=== PATIENT | male | born 1945 | race Caucasian/White ===

== ENCOUNTER → 2016-09-18 | Outpatient (CLI) | payer MEDICARE, BC ==
--- NOTE | 2016-09-18 07:16 | MR ---
EXAMINATION TYPE: MR pelvis wo con DATE OF EXAM: 09/18/2016 6:56 AM COMPARISON: CT pelvis July 24, 2016 HISTORY: Right groin pain and tenderness. Standard multiplanar, multisequence MRI departmental protocol Multiplanar, multisequence images of the pelvis were acquired. FINDINGS: Bone marrow signal intensity is maintained in the visualized pelvis structures. Hip joints are symmetric with mild to moderate axial joint space loss and mild acetabular spurring. Pubic symphy sis is maintained. Sacroiliac joints are felt within normal limits. There is no suspicious fat or bowel containing inguinal hernia bilaterally. Some benign-appearing sub centimeter groin lymph nodes are noted bilaterally. There is no suspicious groin or pelvic adenopathy seen. Muscle bulk in the bilateral thighs is symmetric and felt within normal limits. There is no suspiciou s mass or fluid collection noted. There is no suspicious small or large bowel dilatation seen. Prostate gland is felt slightly enlarged bulging on the bladder base suspicious for BPH. Seminal vesicles are within normal limits. Urinary b ladder is poorly distended but is felt otherwise unremarkable. No pelvic fluid collection is seen. Visualized portion of the testicles is felt within normal limits. There are small symmetric scrotal f luid collection or hydroceles seen. IMPRESSION: No significant is finding identified to account for patient's symptoms.
== END | disposition home or self-care (01) ==
LOC: RADMRIMAIN 05:56
PROVIDERS: ATTEND Internal Medicine
DX: R10.31 Right lower quadrant pain (principal); R10.813 Right lower quadrant abdominal tenderness
CPT/HCPCS: 72195

== ENCOUNTER → 2017-08-22 | Outpatient (CLI) | payer MEDICARE, BC | END | disposition home or self-care (01) | LOC: LABWHC1 07:14 | PROVIDERS: ATTEND Internal Medicine Interventional Cardiology | DX: E87.5 Hyperkalemia (principal) | CPT/HCPCS: 36415; 84132 ==

== ENCOUNTER → 2017-10-28 | Outpatient (CLI) | payer MEDICARE, BC ==
[2017-10-28 09:09] LABS: Anion Gap 12 mmol/L; Blood Urea Nitrogen 17 mg/dL (9-20); Calcium 9.9 mg/dL (8.4-10.2); Carbon Dioxide 25 mmol/L (22-30); Chloride 103 mmol/L (98-107); Glucose 231 mg/dL (74-99); Potassium 4.8 mmol/L (3.5-5.1); Sodium 140 mmol/L (137-145)
--- NOTE | 2017-10-28 10:38 | XR ---
Right hip HISTORY: Chronic right hip pain 2 views of the right hip There are vascular calcifications present. Alignment and bone mineralization are maintained, there is minimal marginal spurring. No fracture or dislocation. IMPRESSION: Mild osteoarthritis.
[2017-10-28 19:56] LABS: Hemoglobin A1C 8.2 % (4.0-6.0)
== END | disposition home or self-care (01) ==
LOC: LABWHC1 08:21
PROVIDERS: ATTEND Internal Medicine
DX: M16.12 Unilateral primary osteoarthritis, left hip (principal)
CPT/HCPCS: 36415; 73502; 80048; 83036

== ENCOUNTER → 2018-01-26 | Outpatient (CLI) | payer MEDICARE, BC ==
[2018-01-26 17:23] LABS: Hemoglobin A1C 8.3 % (4.0-6.0)
== END | disposition home or self-care (01) ==
LOC: LABWHC1 06:52
PROVIDERS: ATTEND Internal Medicine
DX: E10.8 Type 1 diabetes mellitus with unspecified complications (principal)
CPT/HCPCS: 36415; 82947; 83036; 84681

== ENCOUNTER → 2018-05-03 | Outpatient (CLI) | payer MEDICARE, BC ==
--- NOTE | 2018-05-03 18:00 | XR ---
Right shoulder HISTORY: Right shoulder pain 3 views of the right shoulder There is calcification at the level of the insertion of the rotator cuff on the greater tuberosity of the right humerus. Acromioclavicular joint arthropathy is present. Alignment and bone mineralization are maintained. Right lung apex as visualized is normal. IMPRESSION: Findings suggest calcific tendinitis. Additional findings above.
== END | disposition home or self-care (01) ==
LOC: RADXRMAIN 17:35
PROVIDERS: ATTEND Internal Medicine
DX: M19.011 Primary osteoarthritis, right shoulder (principal)

== ENCOUNTER → 2018-05-24 | Outpatient (CLI) | payer MEDICARE, BC ==
[2018-05-24 07:48] LABS: MCH 29.4 pg (25.0-35.0); MCHC 34.1 g/dL (31.0-37.0); MCV 86.5 fL (80.0-100.0); Mean Platelet Volume 7.9; Platelet Count 206 k/uL (150-450); RBC 5.44 m/uL (4.30-5.90); RDW 13.1 % (11.5-15.5); WBC 7.3 k/uL (3.8-10.6)
[2018-05-24 08:04] LABS: Albumin 4.2 g/dL (3.5-5.0); Calcium 9.6 mg/dL (8.4-10.2); Potassium 4.9 mmol/L (3.5-5.1); Total Bilirubin 0.6 mg/dL (0.2-1.3); Total Protein 6.8 g/dL (6.3-8.2)
[2018-05-24 09:12] LABS: Prostate Specific Antigen 1.45 ng/mL (0.00-4.00)
[2018-05-24 12:45] LABS: Hemoglobin A1C 7.7 % (4.0-6.0)
== END | disposition home or self-care (01) ==
LOC: LABWHC1 07:18
PROVIDERS: ATTEND Internal Medicine
DX: Z00.00 Encounter for general adult medical examination without abnormal findings (principal); E11.9 Type 2 diabetes mellitus without complications; I11.9 Hypertensive heart disease without heart failure; N40.0 Benign prostatic hyperplasia without lower urinary tract symptoms; E78.2 Mixed hyperlipidemia
CPT/HCPCS: 36415; 80053; 80061; 82043; 82570; 83036; 84153; 85027

== ENCOUNTER → 2018-11-26 | Outpatient (CLI) | payer MEDICARE, BC ==
[2018-11-26 16:26] LABS: T4, Free (Free Thyroxine) 1.2 ng/dL (0.80-1.80)
[2018-11-26 16:49] LABS: Albumin 4.3 g/dL (3.80-4.90); Albumin/Globulin Ratio 2.39 (1.60-3.17); Anion Gap 7.4 mmol/L (4.00-12.00); Calcium 9.2 mg/dL (8.7-10.3); Carbon Dioxide 25.6 mmol/L (21.6-31.8); Globulin 1.8 g/dL (1.6-3.3); Potassium 4.6 mmol/L (3.5-5.5); Total Bilirubin 0.5 mg/dL (0.2-1.2); Total Protein 6.1 g/dL (6.2-8.2)
[2018-11-26 20:04] LABS: Hemoglobin A1C 9.4 % (4.0-6.0)
== END | disposition home or self-care (01) ==
LOC: LABWHC1 07:46
PROVIDERS: ATTEND Internal Medicine
DX: E10.9 Type 1 diabetes mellitus without complications (principal)
CPT/HCPCS: 36415; 80053; 80061; 82043; 82306; 82570; 83036; 84439; 84443

== ENCOUNTER → 2019-11-01 | Outpatient (CLI) | payer MEDICARE, BC ==
[2019-11-01 10:38] LABS: Basophils # (A) 0.1 k/uL (0-0.2); Basophils % (A) 1 %; Eosinophils # (A) 0.4 k/uL (0-0.7); Eosinophils % (A) 5 %; HCT 44.9 % (39.0-53.0); HGB 15.1 gm/dL (13.0-17.5); Lymphocytes # (A) 2.1 k/uL (1.0-4.8); Lymphocytes % (A) 27 %; MCH 29.1 pg (25.0-35.0); MCHC 33.6 g/dL (31.0-37.0); MCV 86.5 fL (80.0-100.0); Mean Platelet Volume 8.4; Monocytes # (A) 0.6 k/uL (0-1.0); Monocytes % (A) 7 %; Neutrophils # (A) 4.4 k/uL (1.3-7.7); Neutrophils % (A) 57 %; Platelet Count 258 k/uL (150-450); RBC 5.18 m/uL (4.30-5.90); WBC 7.7 k/uL (3.8-10.6)
[2019-11-01 13:15] LABS: Erythrocyte Sedimentation Rate 4 mm/hr (0-15)
[2019-11-01 17:52] LABS: Urine Creatinine 81.9 mg/dL
[2019-11-01 18:04] LABS: ALT 22 U/L (10-49); AST 16 U/L (14-35); African American GFR (CKD) 56.2 (60.0-200.0); Albumin/Globulin Ratio 2.75 (1.60-3.17); Alkaline Phosphatase 117 U/L (41-126); BUN/Creat Ratio 11.43 Ratio (12.00-20.00); C Reactive Protein <0.4 mg/dL (0.0-0.8); Calcium 9.7 mg/dL (8.7-10.3); Carbon Dioxide 25.7 mmol/L (21.6-31.8); Chloride 104 mmol/L (96-109); Chol/HDL Ratio 2.78; Cholesterol 111 mg/dL (0-200); Creatine Kinase 79 U/L (35-257); Globulin 1.6 g/dL (1.6-3.3); Glucose 152 mg/dL (70-110); LDL Cholesterol,Calculated 49.4 mg/dL (0.0-131.0); Non-African American GFR(CKD) 48.5 (60.0-200.0); Potassium 5.5 mmol/L (3.5-5.5); Sodium 141 mmol/L (135-145); Total Bilirubin 0.5 mg/dL (0.3-1.2)
[2019-11-01 19:20] LABS: Hemoglobin A1C 8.6 % (4.0-6.0)
== END | disposition home or self-care (01) ==
LOC: LABWHC1 08:00
PROVIDERS: ATTEND Internal Medicine
DX: E78.5 Hyperlipidemia, unspecified (principal); N40.0 Benign prostatic hyperplasia without lower urinary tract symptoms; I12.9 Hypertensive chronic kidney disease with stage 1 through stage 4 chronic kidney disease, or unspecified chronic kidney disease; N18.3 Chronic kidney disease, stage 3 (moderate); E11.65 Type 2 diabetes mellitus with hyperglycemia; E55.9 Vitamin D deficiency, unspecified; E11.22 Type 2 diabetes mellitus with diabetic chronic kidney disease
CPT/HCPCS: 36415; 80053; 80061; 82043; 82272; 82306; 82550; 82570; 83036; 84153; 84443; 85025; 85652; 86140

== ENCOUNTER → 2020-06-11 | Outpatient (CLI) | payer MEDICARE, BC ==
[2020-06-11 15:25] LABS: Hemoglobin A1C 7.2 % (4.0-6.0)
== END | disposition home or self-care (01) ==
LOC: LABWHC1 07:19
PROVIDERS: ATTEND Internal Medicine
DX: E10.65 Type 1 diabetes mellitus with hyperglycemia (principal)
CPT/HCPCS: 36415; 83036

== ENCOUNTER → 2021-01-18 | Outpatient (CLI) | payer MEDICARE, BC ==
[2021-01-18 09:02] LABS: Creatinine,Urine Random 59.1 mg/dL; Protein/Creatinine Ratio,Urine 0.575
[2021-01-18 11:36] LABS: Basophils # (A) 0.05 X 10*3/uL (0.00-0.10); Basophils % (A) 0.7 %; Eosinophils # (A) 0.33 X 10*3/uL (0.04-0.35); Eosinophils % (A) 4.7 %; HCT 43.7 % (39.6-50.0); HGB 14.8 g/dL (13.0-17.0); Lymphocytes # (A) 2.07 X 10*3/uL (0.90-5.00); Lymphocytes % (A) 29.7 %; MCH 29.6 pg (27.0-32.0); MCHC 33.9 g/dL (32.0-37.0); MCV 87.4 fL (80.0-97.0); Mean Platelet Volume 11.1 fL (9.5-12.2); Monocytes # (A) 0.63 X 10*3/uL (0.20-1.00); Neutrophils # (A) 3.83 X 10*3/uL (1.80-7.70); Neutrophils % (A) 54.9 %; Platelet Count 228 X 10*3/uL (140-440); RDW 12.8 % (11.5-14.5); WBC 6.98 X 10*3/uL (4.50-10.00)
[2021-01-18 13:00] LABS: ALT 32 U/L (10-49); AST 24 U/L (14-35); African American GFR (CKD) 67.2 (60.0-200.0); Alkaline Phosphatase 121 U/L (41-126); C Reactive Protein <0.4 mg/dL (0.0-0.8); Calcium 9.6 mg/dL (8.7-10.3); Carbon Dioxide 28.3 mmol/L (21.6-31.8); Chloride 101 mmol/L (96-109); Chol/HDL Ratio 3.56; Cholesterol 121 mg/dL (0-200); Creatine Kinase 182 U/L (35-257); Globulin 1.8 g/dL (1.6-3.3); Glucose 186 mg/dL (70-110); LDL Cholesterol,Calculated 52.4 mg/dL (0.0-131.0); Magnesium 1.8 mg/dL (1.5-2.4); PSA Annual Screen 1.8 ng/mL (0.0-4.0); Potassium 4.5 mmol/L (3.5-5.5); Sodium 138 mmol/L (135-145); Total Bilirubin 0.6 mg/dL (0.3-1.2); Total Protein 6.3 g/dL (6.2-8.2)
[2021-01-18 13:05] LABS: Urine Creatinine 53.2 mg/dL
[2021-01-18 13:48] LABS: Erythrocyte Sedimentation Rate 5 mm/Hr (0-20)
[2021-01-18 15:11] LABS: Hemoglobin A1C 7.4 % (4.0-6.0)
== END | disposition home or self-care (01) ==
LOC: LABWHC1 07:08
PROVIDERS: ATTEND Family Medicine
DX: Z00.00 Encounter for general adult medical examination without abnormal findings (principal); E11.65 Type 2 diabetes mellitus with hyperglycemia; E55.9 Vitamin D deficiency, unspecified; N40.0 Benign prostatic hyperplasia without lower urinary tract symptoms; E78.5 Hyperlipidemia, unspecified; E03.9 Hypothyroidism, unspecified; I25.10 Atherosclerotic heart disease of native coronary artery without angina pectoris; D64.9 Anemia, unspecified; R80.9 Proteinuria, unspecified
CPT/HCPCS: 82570 ×2; 80061; 80053; 85652; 84443; 84156; 82550; 83735; 85025; 86140; 82306; 82043; 83036; 36415; G0103

== ENCOUNTER → 2021-08-12 | Outpatient (CLI) | payer MEDICARE, BC ==
[2021-08-12 15:28] LABS: African American GFR (CKD) 59.5 (60.0-200.0); BUN/Creat Ratio 15.23 Ratio (12.00-20.00); Blood Urea Nitrogen 20.1 mg/dL (9.0-27.0); Calcium 9.7 mg/dL (8.7-10.3); Carbon Dioxide 25.6 mmol/L (20.0-27.5); Chloride 101 mmol/L (96-109); Chol/HDL Ratio 2.88 Ratio; Glucose 186 mg/dL (70-110); LDL Cholesterol,Calculated 39.2 mg/dL (0.0-131.0); Non-African American GFR(CKD) 51.3 (60.0-200.0); Sodium 139 mmol/L (135-145)
[2021-08-12 22:59] LABS: Urine Creatinine 69.9 mg/dL (39.0-259.0)
== END | disposition home or self-care (01) ==
LOC: LABWHC1 07:42
PROVIDERS: ATTEND Family Medicine
DX: E10.65 Type 1 diabetes mellitus with hyperglycemia (principal); E55.9 Vitamin D deficiency, unspecified
CPT/HCPCS: 36415; 80048; 80061; 82043; 82306; 82570; 83036

== ENCOUNTER → 2022-02-25 | Outpatient (CLI) | payer MEDICARE ==
--- NOTE | 2022-02-25 16:24 | XR ---
Sacroiliac joints HISTORY: Pain 3 views the sacroiliac There is no evident ankylosis, hypertrophic change, or erosion. Sacroiliac joints are intact. Dense v ascular calcifications are noted incidentally. IMPRESSION: Normal sacroiliac joints.
--- NOTE | 2022-02-25 16:27 | XR ---
Lumbosacral spine HISTORY: Osteoarthritis, pain 6 views of lumbosacral spine correlated to prior exam dated 10/19/2012 There is multilevel spondylosis. No evident spondylolysis or spondylolisthesis. Loss of disc height p resent at intervertebral levels, there is vacuum phenomenon present L4-5 and L5-S1. Sclerosis is pres ent in the posterior elements consistent with facet arthropathy. Bone mineralization is reduced. Athe rosclerotic vascular calcifications present in the distribution the aortoiliac arteries. IMPRESSION: Degenerative disc disease and facet arthropathy.
--- NOTE | 2022-02-25 16:31 | XR ---
Bilateral hips HISTORY: Pain 2 views each hip Bone mineralization is reduced. Joint spaces show some mild associated loss, and alignment is [place]. Atherosclerotic vascular calcifications are noted incidentally. There is no fracture or dislocat ion. Question some chondrocalcinosis femoral heads. IMPRESSION: Findings may represent osteoarthritic change or possibly crystal deposition arthropathy. There is osteopenia.
== END | disposition home or self-care (01) ==
LOC: RADXRMAIN 14:16
PROVIDERS: ATTEND Internal Medicine
DX: M51.36 Other intervertebral disc degeneration, lumbar region (principal); M47.816 Spondylosis without myelopathy or radiculopathy, lumbar region; M85.88 Other specified disorders of bone density and structure, other site
CPT/HCPCS: 72110; 72202; 73521

== ENCOUNTER → 2022-03-04 | Outpatient (CLI) | payer MEDICARE ==
[2022-03-05 00:13] LABS: ALT 27 U/L (10-49); AST 17 U/L (14-35); Lipase 29 U/L (14-60)
[2022-03-05 00:53] LABS: Basophils # (A) 0.05 X 10*3/uL (0.00-0.10); Basophils % (A) 0.5 %; Eosinophils # (A) 0.17 X 10*3/uL (0.04-0.35); Eosinophils % (A) 1.6 %; HCT 44.6 % (39.6-50.0); HGB 14.8 g/dL (13.0-17.0); Immature Grans, Automated 0.5 %; Lymphocytes # (A) 2.38 X 10*3/uL (0.90-5.00); Lymphocytes % (A) 22.6 %; MCH 29.1 pg (27.0-32.0); MCHC 33.2 g/dL (32.0-37.0); MCV 87.8 fL (80.0-97.0); Mean Platelet Volume 12.3 fL (9.5-12.2); Monocytes # (A) 0.97 X 10*3/uL (0.20-1.00); Monocytes % (A) 9.2 %; NRBC Per 100 WBC 0 /100 WBCS (0.0-0.0); Neutrophils % (A) 65.6 %; Platelet Count 230 X 10*3/uL (140-440); RBC 5.08 X 10*6/uL (4.40-5.60); WBC 10.52 X 10*3/uL (4.50-10.00)
--- NOTE | 2022-03-05 08:10 | XR ---
EXAMINATION TYPE: XR abdomen 2V DATE OF EXAM: 03/04/2022 COMPARISON: NONE HISTORY: Pain TECHNIQUE: two view abdominal series FINDINGS: The osseous structures are intact. The bowel gas pattern is nonspecific. Hypertrophic and degenerati ve change spine. Retained fecal debris throughout the colon. Vascular calcifications are noted. Arthr opathy of the hips.. IMPRESSION: 1. Nonspecific abdomen. Correlate for constipation.
== END | disposition home or self-care (01) ==
LOC: LABWHC1 15:16
PROVIDERS: ATTEND Internal Medicine
DX: A09 Infectious gastroenteritis and colitis, unspecified (principal); M47.9 Spondylosis, unspecified; K59.00 Constipation, unspecified
CPT/HCPCS: 36415; 74019; 83690; 84450; 84460; 85025

== ENCOUNTER → 2022-05-29 | Outpatient (CLI) | payer MEDICARE ==
[2022-05-29 18:11] LABS: African American GFR (CKD) 51.4 (60.0-200.0); Anion Gap 12.3 mmol/L (10.00-18.00); BUN/Creat Ratio 17.23 Ratio (12.00-20.00); Blood Urea Nitrogen 25.5 mg/dL (9.0-27.0); Non-African American GFR(CKD) 44.4 (60.0-200.0); Potassium 4.8 mmol/L (3.5-5.5)
== END | disposition home or self-care (01) ==
LOC: LABWHC1 14:09
PROVIDERS: ATTEND Internal Medicine
DX: E11.65 Type 2 diabetes mellitus with hyperglycemia (principal); E87.8 Other disorders of electrolyte and fluid balance, not elsewhere classified
CPT/HCPCS: 36415; 80048

== ENCOUNTER → 2022-09-15 | Outpatient (CLI) | payer MEDICARE ==
[2022-09-15 10:48] LABS: Anion Gap 18.8 mmol/L (10.00-18.00); BUN/Creat Ratio 15.57 Ratio (12.00-20.00); Blood Urea Nitrogen 21.8 mg/dL (9.0-27.0); Calcium 9.9 mg/dL (8.7-10.3); Carbon Dioxide 20.2 mmol/L (20.0-27.5); Non-African American GFR(CKD) 47.4 (60.0-200.0); Potassium 4.8 mmol/L (3.5-5.5)
== END | disposition home or self-care (01) ==
LOC: LABWHC1 07:05
PROVIDERS: ATTEND Internal Medicine
DX: E11.65 Type 2 diabetes mellitus with hyperglycemia (principal); E11.22 Type 2 diabetes mellitus with diabetic chronic kidney disease; N18.30 Chronic kidney disease, stage 3 unspecified
CPT/HCPCS: 36415; 80048; 83036

== ENCOUNTER → 2022-12-29 | Outpatient (CLI) | payer MEDICARE ==
[2022-12-29 11:50] LABS: ALT 24 U/L (10-49); AST 17 U/L (14-35); African American GFR (CKD) 68.3 (60.0-200.0); Albumin 4.2 g/dL (3.8-4.9); Albumin/Globulin Ratio 2.52 (1.60-3.17); Alkaline Phosphatase 114 U/L (41-126); BUN/Creat Ratio 15.21 Ratio (12.00-20.00); Blood Urea Nitrogen 17.8 mg/dL (9.0-27.0); Calcium 9.7 mg/dL (8.7-10.3); Carbon Dioxide 24.9 mmol/L (20.0-27.5); Chloride 104 mmol/L (96-109); Globulin 1.7 g/dL (1.6-3.3); Glucose 176 mg/dL (70-110); Potassium 5.3 mmol/L (3.5-5.5); Sodium 139 mmol/L (135-145); Total Protein 5.9 g/dL (6.2-8.2)
[2022-12-29 11:51] LABS: Chol/HDL Ratio 2.04 Ratio; LDL Cholesterol,Calculated 19.4 mg/dL (0.0-131.0)
[2022-12-29 12:06] LABS: Urine Creatinine 53.3 mg/dL (39.0-259.0)
== END | disposition home or self-care (01) ==
LOC: LABWHC1 07:02
PROVIDERS: ATTEND Family Medicine
DX: E55.9 Vitamin D deficiency, unspecified (principal); E10.65 Type 1 diabetes mellitus with hyperglycemia
CPT/HCPCS: 36415; 80053; 80061; 82043; 82306; 82570; 83036

== ENCOUNTER → 2023-01-05 | Outpatient (CLI) | payer MEDICARE ==
--- NOTE | 2023-01-05 11:42 | XR ---
EXAMINATION TYPE: XR chest 2V DATE OF EXAM: 01/05/2023 COMPARISON: NONE TECHNIQUE: PA and lateral views submitted. HISTORY: Cough FINDINGS: The lungs are clear and there is no pneumothorax, pleural effusion, or focal pneumonia. Heart size normal and no overt failure. Osseous structures demonstrate hypertrophic and degenerative changes of the spine. Atherosclerotic change aorta. Arthropathy of the shoulders. Hyperinflation of the lungs. IMPRESSION: 1. No acute process. Correlate for COPD.
[2023-01-05 20:36] LABS: Basophils # (A) 0.06 X 10*3/uL (0.00-0.10); Basophils % (A) 0.6 %; Eosinophils # (A) 0.09 X 10*3/uL (0.04-0.35); HCT 44.7 % (39.6-50.0); HGB 15.1 g/dL (13.0-17.0); Immature Grans, Automated 0.6 %; Lymphocytes # (A) 2.44 X 10*3/uL (0.90-5.00); Lymphocytes % (A) 25.8 %; MCH 29.4 pg (27.0-32.0); MCHC 33.8 g/dL (32.0-37.0); Mean Platelet Volume 11.3 fL (9.5-12.2); Monocytes # (A) 0.79 X 10*3/uL (0.20-1.00); Monocytes % (A) 8.4 %; NRBC Per 100 WBC 0 /100 WBCS (0.0-0.0); Neutrophils # (A) 6.02 X 10*3/uL (1.80-7.70); Neutrophils % (A) 63.6 %; Platelet Count 275 X 10*3/uL (140-440); RBC 5.14 X 10*6/uL (4.40-5.60); RDW 12.8 % (11.5-14.5); WBC 9.46 X 10*3/uL (4.50-10.00)
== END | disposition home or self-care (01) ==
LOC: LABWHC1 11:22
PROVIDERS: ATTEND Internal Medicine
DX: J06.9 Acute upper respiratory infection, unspecified (principal); J12.9 Viral pneumonia, unspecified
CPT/HCPCS: 36415; 71046; 85025; 87070; 87205

== ENCOUNTER 2023-01-29 21:19 | Emergency (ER) | payer MEDICARE ==
[2023-01-29 21:27] VITALS: TEMP 97.3
--- NOTE | 2023-01-29 22:18 | ED ---
General Adult HPI - General Chief complaint: Back Pain/Injury Stated complaint: Back Pain,Leg numbness,Chills Time Seen by Provider: 01/29/23 21:32 Source: patient, RN notes reviewed, old records reviewed Mode of arrival: wheelchair Limitations: no limitations - History of Present Illness Initial comments: 77-year-old male presenting for evaluation of low back pain and numbness into his feet. Patient states symptoms are worse on the left. There have been progressive over approximately one month. He had previous lumbar spinal surgery performed at outside institution many years ago. He denies recent trauma. Denies fever. Denies urinary retention or incontinence. Denies any saddle anesthesia. Symptoms have been progressive over one month. - Related Data Home Medications Medication Instructions Recorded Confirmed Aspirin EC [Ecotrin Low Dose] 81 mg PO PC-SUPPER@1800 01/29/23 01/29/23 Atorvastatin [Lipitor] 40 mg PO Q2D@2100 01/29/23 01/29/23 Empagliflozin [Jardiance] 25 mg PO DAILY@0800 01/29/23 01/29/23 Fish Oil(Unknown Dose) 1 cap PO PC-BID@0800,1800 01/29/23 01/29/23 Hydrocortisone Pr Cream 1 applic RECTAL BID 01/29/23 01/29/23 [Proctosol-Hc 2.5%] Losartan [Cozaar] 50 mg PO DAILY@0800 01/29/23 01/29/23 Metoprolol Succinate (ER) [Toprol 25 mg PO DAILY@0800 01/29/23 01/29/23 Xl] Multivitamins, Thera [Multivitamin 1 tab PO DAILY@0800 01/29/23 01/29/23 (formulary)] amLODIPine [Norvasc] 5 mg PO PC-BID@0800,1800 01/29/23 01/29/23 cloNIDine HCL 0.2 mg PO PC-SUPPER@1800 01/29/23 01/29/23 guaiFENesin [Mucinex] 600 mg PO PC-BID@0800,1800 01/29/23 01/29/23 hydrALAZINE HCL [Apresoline] 50 mg PO TID@0800,1500,2200 01/29/23 01/29/23 metFORMIN HCL ER [Glucophage XR] 500 mg PO PC-BID@0800,1800 01/29/23 01/29/23 Previous Rx's Medication Instructions Recorded Cyclobenzaprine [Flexeril] 5 mg PO HS #7 tab 01/29/23 Allergies Allergy/AdvReac Type Severity Reaction Status Date / Time No Known Allergies Allergy Verified 01/29/23 22:38 Review of Systems ROS Statement: Those systems with pertinent positive or pertinent negative responses have been documented in the HPI. ROS Other: All systems not noted in ROS Statement are negative. Past Medical History Past Medical History: Diabetes Mellitus, Hypertension, Myocardial Infarction (VT) Past Surgical History: Back Surgery, Heart Catheterization With Stent Additional Past Surgical History / Comment(s): abd sx Past Psychological History: No Psychological Hx Reported Smoking Status: Current every day smoker Past Alcohol Use History: Rare Past Drug Use History: None Reported General Exam Limitations: no limitations General appearance: alert, in no apparent distress Head exam: Present: atraumatic, normocephalic Eye exam: Present: normal appearance, PERRL Neck exam: Present: normal inspection Respiratory exam: Present: normal lung sounds bilaterally. Absent: respiratory distress, wheezes Cardiovascular Exam: Present: regular rate, normal rhythm GI/Abdominal exam: Present: soft. Absent: distended, tenderness, guarding Extremities exam: Present: normal inspection, normal capillary refill, other (2+ pedal pulses normal sensation) Back exam: Present: tenderness (Left lumbar paraspinal) Neurological exam: Present: alert, oriented X3, CN II-XII intact, reflexes normal (The left patellar reflex is slightly more brisk than the right 5 out of 5 strength, normal flexion and extension at the ankle, ). Absent: motor sensory deficit Skin exam: Present: warm, dry, intact Course Vital Signs 01/29/23 01/29/23 21:21 22:13 Temperature 97.3 F L Pulse Rate 73 68 Respiratory 20 16 Rate Blood Pressure 181/75 185/82 O2 Sat by Pulse 98 98 Oximetry Medical Decision Making - Medical Decision Making Was pt. sent in by a medical professional or institution (, PA, POST FRAMER, urgent care, hospital, or fpc...) When possible be specific @ -[No] Did you speak to anyone other than the patient for history (EMS, parent, family, police, friend...)? What history was obtained from this source @ -Patient's daughter Did you review nursing and triage notes (agree or disagree)? Why? @ -[I reviewed and agree with nursing and triage notes] Were old charts reviewed (outside hosp., previous admission, EMS record, old EKG, old radiological studies, urgent care reports/EKG's, fpc records)? Report findings @ -[No old charts were reviewed] Differential Diagnosis (chest pain, altered mental status, abdominal pain women, abdominal pain men, vaginal bleeding, weakness, fever, dyspnea, syncope, headache, dizziness, GI bleed, back pain, seizure, CVA, palpatations, mental health, musculoskeletal)? @ -Differential Musculoskeletal Muscular strain, contusion, ligament sprain, fracture, arthritis, septic arthritis, bursitis, cellulitis, muscle spasm, nerve compression, DVT, arterial occlusion, herpes zoster, electrolyte abnormality, tumor.... This is not meant to be in all inclusive list EKG interpreted by me (3pts min.). @Sinus rhythm with PVC rate of 67, MI interval 172, QRS duration 93, QTC [address] segment elevation. X-rays interpreted by me (1pt min.). @ -[None done] CT interpreted by me (1pt min.). @ -CT performed the lumbar spine showing multilevel degenerative changes, no acute fracture. U/S interpreted by me (1pt. min.). @ -[None done] What testing was considered but not performed or refused? (CT, X-rays, U/S, labs)? Why? @ -[None] What meds were considered but not given or refused? Why? @ -[None] Did you discuss the management of the patient with other professionals (professionals i.e. , PA, POST [employer]ER, lab, RT, psych nurse, social science professor, fire official, teacher, customs officer, major case detective)? Give summary @ -[No] Was smoking cessation discussed for >3mins.? @ -[No] Was critical care preformed (if so, how long)? @ -[No] Were there social determinants of health that impacted care today? How? (Homelessness, low income, unemployed, alcoholism, drug addiction, transportation, low edu. Level, literacy, decrease access to med. care, care home, rehab)? @ -[No] Was there de-escalation of care discussed even if they declined (Discuss DNR or withdrawal of care, Hospice)? DNR status @ -[No] What co-morbidities impacted this encounter? (DM, HTN, Smoking, COPD, CAD, Cancer, CVA, ARF, Chemo, Hep., AIDS, mental health diagnosis, sleep apnea, morbid obesity)? @ -[None] Was patient admitted / discharged? Hospital course, mention meds given and route, prescriptions, significant lab abnormalities, going to OR and other pertinent info. @77-year-old male presenting for evaluation of low back pain worse on the left with progressive numbness and tingling to his bilateral feet. He is a diabetic but states sugars have been relatively well-controlled. He denies recent injury. I did perform CT imaging of the lumbar spine which showed moderate to severe spinal canal stenosis at L3 to L4 grade 1 spondylolisthesis at the same level and disc bulging at L2-L3. There is foraminal stenosis as well. Patient has had previous issues with chronic kidney disease although his kidney function today is normal and is a diabetic. I will avoid NSAIDs and steroids in this patient at this time. He states that he had taken Flexeril at home with significant improvement. He should take Tylenol and Flexeril at night. He should follow-up with orthopedics, given referral and emergency department. No alarming features on history or physical exam. Undiagnosed new problem with uncertain prognosis? @ -[No] Drug Therapy requiring intensive monitoring for toxicity (Heparin, Nitro, Insulin, Cardizem)? @ -[No] Were any procedures done? @ -[No] Diagnosis/symptom? @ -Lumbar radiculopathy Acute, or Chronic, or Acute on Chronic? @ -Acute Uncomplicated (without systemic symptoms) or Complicated (systemic symptoms)? @ -[default] Side effects of treatment? @ -[No] Exacerbation, Progression, or Severe Exacerbation? @ -[No] Poses a threat to life or bodily function? How? (Chest pain, USA, VT, pneumonia, PE, COPD, DKA, ARF, appy, cholecystitis, CVA, Diverticulitis, Homicidal, Suicidal, threat to staff... and all critical care pts) @ -Low-risk - Lab Data Result diagrams: 01/29/23 22:10 01/29/23 22:10 Lab Results 01/29/23 01/29/23 Range/Units 22:10 22:10 WBC 8.8 (3.8-10.6) k/uL RBC 5.53 (4.30-5.90) m/uL Hgb 16.3 (13.0-17.5) gm/dL Hct 48.6 (39.0-53.0) % MCV 87.9 (80.0-100.0) fL MCH 29.5 (25.0-35.0) pg MCHC 33.6 (31.0-37.0) g/dL RDW 12.8 (11.5-15.5) % Plt Count 276 (150-450) k/uL MPV 7.9 Neutrophils % 68 % Lymphocytes % 21 % Monocytes % 8 % Eosinophils % 1 % Basophils % 0 % Neutrophils # 6.0 (1.3-7.7) k/uL Lymphocytes # 1.9 (1.0-4.8) k/uL Monocytes # 0.7 (0-1.0) k/uL Eosinophils # 0.1 (0-0.7) k/uL Basophils # 0.0 (0-0.2) k/uL Sodium 137 (137-145) mmol/L Potassium 4.3 (3.5-5.1) mmol/L Chloride 100 (98-107) mmol/L Carbon Dioxide 25 (22-30) mmol/L Anion Gap 12 mmol/L BUN 17 (9-20) mg/dL Creatinine 1.01 (0.66-1.25) mg/dL Est GFR (CKD-EPI)AfAm 82 (>60 ml/min/1.73 sqM) Est GFR (CKD-EPI)NonAf 71 (>60 ml/min/1.73 sqM) Glucose 152 H (74-99) mg/dL Calcium 9.5 (8.4-10.2) mg/dL Magnesium 2.0 (1.6-2.3) mg/dL Total Bilirubin 0.5 (0.2-1.3) mg/dL AST 22 (17-59) U/L ALT 26 (4-49) U/L Alkaline Phosphatase 123 (38-126) U/L Total Protein 6.8 (6.3-8.2) g/dL Albumin 4.3 (3.5-5.0) g/dL Disposition Clinical Impression: Lumbar radiculopathy Disposition: HOME SELF-CARE Condition: Fair Instructions (If sedation given, give patient instructions): Acute Low Back Pain (ED), Lumbar Radiculopathy (ED) Additional Instructions: Please take Tylenol and Flexeril at night for pain and muscle spasm. Please follow closely with orthopedics. Please return to the emergency department with worsening or changing symptoms. Prescriptions: Cyclobenzaprine [Flexeril] 5 mg PO HS #7 tab Is patient prescribed a controlled substance at d/c from ED?: No Referrals: Jesus Rizvi MD [REFERRING] - 1-2 days Pablito Blanco DO [Doctor of Osteopathic Medicine] - 1-2 days Time of Disposition: 23:51
[2023-01-29 22:23] LABS: Basophils % (A) 0 %; Eosinophils # (A) 0.1 k/uL (0-0.7); Eosinophils % (A) 1 %; HCT 48.6 % (39.0-53.0); HGB 16.3 gm/dL (13.0-17.5); Lymphocytes # (A) 1.9 k/uL (1.0-4.8); Lymphocytes % (A) 21 %; MCH 29.5 pg (25.0-35.0); MCHC 33.6 g/dL (31.0-37.0); MCV 87.9 fL (80.0-100.0); Mean Platelet Volume 7.9; Monocytes # (A) 0.7 k/uL (0-1.0); Monocytes % (A) 8 %; Neutrophils % (A) 68 %; Platelet Count 276 k/uL (150-450); RBC 5.53 m/uL (4.30-5.90); RDW 12.8 % (11.5-15.5); WBC 8.8 k/uL (3.8-10.6)
[2023-01-29 22:38] LABS: Albumin 4.3 g/dL (3.5-5.0); Calcium 9.5 mg/dL (8.4-10.2); Potassium 4.3 mmol/L (3.5-5.1); Total Bilirubin 0.5 mg/dL (0.2-1.3); Total Protein 6.8 g/dL (6.3-8.2)
[2023-01-29] MEDS ORDERED: ACETAMINOPHEN TAB 500 MG TAB PO STA (23:29)
[2023-01-29] MEDS ORDERED: CYCLOBENZAPRINE 5 MG TAB PO STA (23:29)
--- NOTE | 2023-01-29 23:37 | CT ---
EXAMINATION TYPE: CT lumbar spine wo con DATE OF EXAM: 01/29/2023 COMPARISON: None HISTORY: Left lower back pain, bilateral finger and toe numbness/tingling. CT DLP: 904.5 mGycm CONTRAST: None TECHNIQUE: CT of the lumbar spine is performed on a spiral scan at 3 mm thick sections. Reconstructed images are performed in the coronal and sagittal planes. FINDINGS: T12-L1: No focal disc herniation or significant disc bulge is evident. No spinal canal stenosis or neural foraminal stenosis is present. L1-L2: Broad-based disc bulge with mild anterior thecal sac compression. Facet hypertrophy and ligame ntum flavum laxity is present. No spinal canal is present. Neural foramen are patent. L2-L3: Disc bulge is present. Ligamentum flavum laxity and facet hypertrophy is posterior lateral the kush sac compression. Mild spinal canal narrowing is present. Moderate bilateral foraminal stenosis is present. L3-L4: Marked facet hypertrophy and ligamentum flavum laxity is present. There is disc bulging with m oderate anterior thecal sac compression. Moderate to severe spinal canal stenosis is present. Minimal grade 1 spondylolisthesis L3 anteriorly on L4 may be present. Severe bilateral foraminal stenosis is present. Mild disc space narrowing is present. L4-L5: There appears be a left hemilaminectomy. Facet hypertrophy and ligamentum flavum laxity is pre sent. Mild lateral canal narrowing is present. Residual disc bulge is anterior thecal sac flattening. AP spinal canal stenosis present. Vacuum disc phenomenon is present. Severe bilateral foraminal sten osis is present. L5-S1: There is loss of disc height to this level. No focal disc herniation is evident. Residual endp late changes. Mild anterior thecal sac flattening. No AP spinal canal stenosis is present. There is s evere bilateral foraminal stenosis Vertebral body heights are preserved. IMPRESSION: 1. Moderate to Severe spinal canal stenosis at L3-4 secondary to facet hypertrophy and ligamentum fla vum laxity and endplate changes. 2. Minimal grade 1 spondylolisthesis of L3-4 may be present. 3. Mild L2-3 spinal canal narrowing due to disc bulging and ligamentum flavum laxity. 4. Multilevel severe foraminal stenosis greater in the lower lumbar spine. 5. No acute osseous abnormality identified.
[2023-01-30 00:08] VITALS: BP 179/85; PULSE 75; RESP 18
[2023-01-30 00:10] LABS: Appearance,Urine Clear (Clear); Bilirubin,Urine Negative (Negative); Blood,Urine Negative (Negative); Color,Urine Light Yellow; Glucose,Urine (UA) 4+ (Negative); Ketones,Urine Negative (Negative); Leukocyte Esterase,Urine Negative (Negative); Nitrite,Urine Negative (Negative); Protein,Urine 1+ (Negative); Squamous Epithelial Cell,Urine <1 /hpf (0-4); Urobilinogen,Urine <2.0 mg/dL (<2.0); WBC,Urine 1 /hpf (0-5)
== END 2023-01-30 00:08 | disposition home or self-care (01) ==
LOC: EC 21:19
DX: M54.16 Radiculopathy, lumbar region (principal); E11.9 Type 2 diabetes mellitus without complications; I10 Essential (primary) hypertension; I25.2 Old myocardial infarction; F17.200 Nicotine dependence, unspecified, uncomplicated; Z79.84 Long term (current) use of oral hypoglycemic drugs; Z79.82 Long term (current) use of aspirin; Z79.899 Other long term (current) drug therapy; Z95.5 Presence of coronary angioplasty implant and graft
CPT/HCPCS: 36415; 72131; 80053; 81001; 83735; 85025; 93005; 99284

== ENCOUNTER → 2023-05-07 | Outpatient (CLI) | payer MEDICARE ==
--- NOTE | 2023-05-07 15:17 | US ---
EXAMINATION TYPE: US venous doppler duplex LE LT DATE OF EXAM: 05/07/2023 3:05 PM COMPARISON: NONE CLINICAL INDICATION: Male, 78 years old with history of I82.402 ACUTE EMBOLISM; pain SIDE PERFORMED: Left TECHNIQUE: The lower extremity deep venous system is examined utilizing real time linear array sonog [place] with graded compression, doppler sonography and color-flow sonography. VESSELS IMAGED: Common Femoral Vein Deep Femoral Vein Greater Saphenous Vein * Femoral Vein Popliteal Vein Small Saphenous Vein * Proximal Calf Veins (* superficial vessels) Left Leg: Negative for DVT Calcified arteries visualized. IMPRESSION: Grayscale, color doppler, spectral doppler imaging performed of the deep veins of the lo wer extremities. There is normal flow, compressibility, vascular waveforms.
== END | disposition home or self-care (01) ==
LOC: RADUSWWP 14:06
PROVIDERS: ATTEND Podiatrist Foot & Ankle Surgery
DX: I82.402 Acute embolism and thrombosis of unspecified deep veins of left lower extremity (principal)

== ENCOUNTER → 2023-08-13 | Outpatient (CLI) | payer MEDICARE ==
--- NOTE | 2023-08-13 09:23 | XR ---
EXAMINATION TYPE: XR chest 2V DATE OF EXAM: 08/13/2023 COMPARISON: 01/05/2023 TECHNIQUE: PA and lateral views submitted. HISTORY: Preop FINDINGS: The lungs are clear and there is no pneumothorax, pleural effusion, or focal pneumonia. Heart size normal and no overt failure. Osseous structures demonstrate hypertrophic and degenerative changes of the spine. Atherosclerotic change aorta. Arthropathy of the shoulders. Underlying COPD. Prominence th e right paratracheal region. IMPRESSION: 1. No acute process. Correlate for COPD. 2. Prominence of the right paratracheal region could represent enlarged thyroid, vascular ectasia or adenopathy.
== END | disposition home or self-care (01) ==
LOC: LABWHC1 07:44
PROVIDERS: ATTEND Orthopaedic Surgery Orthopaedic Surgery of the Spine
DX: Z01.818 Encounter for other preprocedural examination (principal); R94.31 Abnormal electrocardiogram [ECG] [EKG]
CPT/HCPCS: 71046

== ENCOUNTER → 2023-08-13 | Outpatient (CLI) | payer MEDICARE ==
[2023-08-13 09:10] LABS: INR 0.9 (<1.2)
[2023-08-13 15:36] LABS: Basophils # (A) 0.07 X 10*3/uL (0.00-0.10); Basophils % (A) 0.7 %; Eosinophils # (A) 0.16 X 10*3/uL (0.04-0.35); Eosinophils % (A) 1.7 %; HCT 50.3 % (39.6-50.0); HGB 16.8 g/dL (13.0-17.0); Lymphocytes # (A) 2.29 X 10*3/uL (0.90-5.00); Lymphocytes % (A) 24.4 %; MCH 29.6 pg (27.0-32.0); MCHC 33.4 g/dL (32.0-37.0); MCV 88.7 FL (80.0-97.0); Mean Platelet Volume 10.5 FL (9.5-12.2); Monocytes # (A) 0.83 X 10*3/uL (0.20-1.00); Monocytes % (A) 8.8 %; NRBC Per 100 WBC 0 X 10*3/uL (0.00-0.01); Neutrophils # (A) 5.95 X 10*3/uL (1.80-7.70); Neutrophils % (A) 63.3 %; Platelet Count 280 X 10*3/uL (140-440); RBC 5.67 X 10*6/uL (4.40-5.60); RDW 12.7 % (11.5-14.5)
[2023-08-13 16:25] LABS: % Iron Saturation 21.15 (15.00-50.00); ALT 23 U/L (10-49); AST 16 U/L (14-35); Albumin 4.5 g/dL (3.8-4.9); Albumin/Globulin Ratio 2.25 Ratio (1.60-3.17); Alkaline Phosphatase 148 U/L (41-126); Blood Urea Nitrogen 16.7 mg/dL (9.0-27.0); C Reactive Protein <0.30 mg/dL (0.00-0.80); Calcium 10.4 mg/dL (8.7-10.3); Carbon Dioxide 25.7 mmol/L (21.6-31.8); Chloride 101 mmol/L (96-109); Chol/HDL Ratio 2.27 Ratio; Creatine Kinase 78 U/L (35-257); Ferritin 51.6 ng/mL (22.0-322.0); Glucose 202 mg/dL (70-110); Iron 77 UG/DL (65-175); LDL Cholesterol,Calculated 40.6 mg/dL (0.0-131.0); Magnesium 2.2 mg/dL (1.5-2.4); Phosphorus 4.2 mg/dL (2.4-5.1); Potassium 5.2 mmol/L (3.5-5.5); Sodium 139 mmol/L (135-145); T4, Free (Free Thyroxine) 1.37 ng/dL (0.80-1.80); Total Bilirubin 0.3 mg/dL (0.3-1.2); Total Iron Binding Capacity 364 UG/DL (228-460); Total Protein 6.5 g/dL (6.2-8.2); Uric Acid 3.5 mg/dL (3.7-8.7)
[2023-08-13 16:29] LABS: Erythrocyte Sedimentation Rate 18 mm/Hr (0-20)
[2023-08-13 21:49] LABS: Appearance,Urine Clear (Clear); Bilirubin,Urine Negative (Negative); Blood,Urine Negative (Negative); Color,Urine Yellow (Yellow); Ketones,Urine Negative (Negative); Nitrite,Urine Negative (Negative); PH, Urine 7.5; Specific Gravity,Urine 1.029 (1.001-1.030); Urobilinogen,Urine 0.2 E.U./DL
[2023-08-13 22:33] LABS: Bacteria,Urine None Seen (None Seen); Yeast (UA) Present (None Seen)
== END | disposition home or self-care (01) ==
LOC: LABWHC1 07:49
PROVIDERS: ATTEND Internal Medicine
DX: Z00.00 Encounter for general adult medical examination without abnormal findings (principal); I12.9 Hypertensive chronic kidney disease with stage 1 through stage 4 chronic kidney disease, or unspecified chronic kidney disease; E11.65 Type 2 diabetes mellitus with hyperglycemia; M81.0 Age-related osteoporosis without current pathological fracture; J44.9 Chronic obstructive pulmonary disease, unspecified; D63.1 Anemia in chronic kidney disease; N40.0 Benign prostatic hyperplasia without lower urinary tract symptoms; E87.8 Other disorders of electrolyte and fluid balance, not elsewhere classified; M10.9 Gout, unspecified; I70.90 Unspecified atherosclerosis; E55.9 Vitamin D deficiency, unspecified; E03.9 Hypothyroidism, unspecified; E11.22 Type 2 diabetes mellitus with diabetic chronic kidney disease; N18.30 Chronic kidney disease, stage 3 unspecified
CPT/HCPCS: 36415; 80053; 80061; 81001; 82306; 82550; 82728; 83036; 83540; 83550; 83735; 83970; 84100; 84153; 84439; 84443; 84550; 85025; 85610; 85652; 85730; 86140; 87070; 87086; 93005

== ENCOUNTER → 2023-09-05 | Outpatient (CLI) | payer MEDICARE ==
[2023-09-05 10:37] LABS: INR 0.9 (<1.2); Partial Thromboplastin Time 24.8 sec (22.0-30.0); Prothrombin Time 10.1 sec (10.0-12.5)
[2023-09-05 13:41] LABS: Basophils # (A) 0.09 X 10*3/uL (0.00-0.10); Basophils % (A) 1.1 %; Eosinophils # (A) 0.17 X 10*3/uL (0.04-0.35); Eosinophils % (A) 2.1 %; HCT 45.6 % (39.6-50.0); HGB 15.1 g/dL (13.0-17.0); Lymphocytes % (A) 23.6 %; MCH 29.4 pg (27.0-32.0); MCHC 33.1 g/dL (32.0-37.0); MCV 88.9 FL (80.0-97.0); Mean Platelet Volume 10.9 FL (9.5-12.2); Monocytes # (A) 0.83 X 10*3/uL (0.20-1.00); Monocytes % (A) 10.3 %; NRBC Per 100 WBC 0 X 10*3/uL (0.00-0.01); Neutrophils # (A) 4.99 X 10*3/uL (1.80-7.70); Neutrophils % (A) 61.9 %; Platelet Count 254 X 10*3/uL (140-440); RBC 5.13 X 10*6/uL (4.40-5.60); RDW 12.8 % (11.5-14.5); WBC 8.06 X 10*3/uL (4.50-10.00)
[2023-09-05 13:45] LABS: BUN/Creat Ratio 12.64 Ratio (12.00-20.00); Blood Urea Nitrogen 13.9 mg/dL (9.0-27.0); Carbon Dioxide 27.2 mmol/L (21.6-31.8); Chloride 102 mmol/L (96-109); Glucose 313 mg/dL (70-110); Potassium 5.2 mmol/L (3.5-5.5); Sodium 141 mmol/L (135-145)
== END | disposition home or self-care (01) ==
LOC: LABPAT 09:47
PROVIDERS: ATTEND Orthopaedic Surgery Orthopaedic Surgery of the Spine
DX: Z01.812 Encounter for preprocedural laboratory examination (principal)
CPT/HCPCS: 36415; 80048; 85025; 85610; 85730

== ENCOUNTER → 2023-09-12 | Outpatient (CLI) | payer MEDICARE ==
[2023-09-12 10:26] LABS: Appearance,Urine Clear (Clear); Bilirubin,Urine Negative (Negative); Blood,Urine Negative (Negative); Color,Urine Colorless; Glucose,Urine (UA) 4+ (Negative); Ketones,Urine Negative (Negative); Leukocyte Esterase,Urine Negative (Negative); Mucus,Urine Rare /hpf; Nitrite,Urine Negative (Negative); PH, Urine 6.5 (5.0-8.0); Protein,Urine 1+ (Negative); Specific Gravity,Urine 1.014 (1.001-1.035); Squamous Epithelial Cell,Urine <1 /hpf (0-4); Urobilinogen,Urine <2.0 mg/dL (<2.0); WBC,Urine 2 /hpf (0-5)
== END | disposition home or self-care (01) ==
LOC: LABPAT 09:43
PROVIDERS: ATTEND Orthopaedic Surgery Orthopaedic Surgery of the Spine
DX: Z01.812 Encounter for preprocedural laboratory examination (principal)
CPT/HCPCS: 81001; 86850; 86900; 86901

== ENCOUNTER 2023-09-21 05:40 | Inpatient (IN) | payer MEDICARE ==
[2023-09-18 09:51] VITALS: BMI 28.3
[~2023-09-21 05:40] MED LIST: VANCOMYCIN 1,250 MG in SODIUM CHLORIDE 0.9% 250 ML IVPB PRN; ceFAZolin 1,000 MG in SODIUM CHLORIDE 0.9% IRRIGATIO 1,000 ML IRRIGATION PRN
[2023-09-21] MEDS ORDERED: MIDAZOLAM 2 MG/2 ML VIAL IV PRN (06:33)
[2023-09-21] MEDS ORDERED: fentaNYL (PF) 50 MCG/ML 2 ML AMP IVP PRN (06:33)
[2023-09-21] MEDS ORDERED: LIDOCAINE 1% (10MG/ML) FOR IV START INTRADERMA PRN (06:33)
[2023-09-21] MEDS ORDERED: DEXAMETHASONE SOD PHOSPHATE 4 MG/ML 1 ML VIAL IV ONE (06:33)
[2023-09-21] MEDS ORDERED: HYDROmorphone 0.5 MG/0.5 ML SYRINGE IVP PRN ×2 (06:33→10:31)
[2023-09-21] MEDS ORDERED: ONDANSETRON 4 MG/2 ML VIAL IVP ONE (06:33)
[2023-09-21] MEDS: LACTATED RINGERS 1,000 ML IV SCH (06:46)
[2023-09-21 06:50] LABS: Glucose,Whole Blood 179 mg/dL (70-110)
[2023-09-21] MEDS ORDERED: GELATIN SPONGE,ABSORB (LARGE) 1 EACH SPONGE TOPICAL ONE (07:44)
[2023-09-21] MEDS ORDERED: fentaNYL (PF) 50 MCG/ML 2 ML AMP ONE (07:44)
[2023-09-21] MEDS ORDERED: HYDROmorphone (PF) 1 MG/ML ONE (07:44)
[2023-09-21] MEDS ORDERED: ROCURONIUM 10 MG/ML (5 ML VIAL) IV ONE (07:44)
[2023-09-21] MEDS ORDERED: WATER FOR INJECTION, STERILE 10 ML VIAL IV ONE (07:44)
[2023-09-21] MEDS ORDERED: ePHEDrine 50 MG/ML 1 ML VIAL ONE (07:44)
[2023-09-21] MEDS ORDERED: KETAMINE HCL IN 0.9 % NACL 50 MG/5 ML SYRINGE ONE (07:44)
[2023-09-21] MEDS ORDERED: LIDOCAINE 1% INJ 10MG/ML (20 ML MDV) ONE (07:44)
[2023-09-21] MEDS ORDERED: LIDOCAINE 0.5%-EPI 1:200,000 50 ML VIAL SQ ONE (07:44)
[2023-09-21] MEDS ORDERED: PROPOFOL 10 MG/ML 20 ML VIAL IV ONE (07:44)
[2023-09-21] MEDS ORDERED: NEOSTIGMINE 1 MG/ML 10 ML VIAL ONE (07:44)
[2023-09-21] MEDS ORDERED: SUCCINYLCHOLINE CHLORIDE 200 MG/10 ML VIAL IV ONE (07:44)
[2023-09-21] MEDS ORDERED: DEXAMETHASONE SOD PHOSPHATE 10 MG/ML 1 ML VIAL ONE (07:44)
[2023-09-21] MEDS ORDERED: THROMBIN (BOVINE) 5,000 UNIT VIAL TOPICAL ONE (07:44)
[2023-09-21] MEDS ORDERED: GLYCOPYRROLATE 0.2 MG/ML 2 ML VIAL ONE (07:44)
--- NOTE | 2023-09-21 08:53 | XR ---
EXAMINATION TYPE: XR cervical spine 1V DATE OF EXAM: 09/21/2023 COMPARISON: NONE HISTORY: Needle placement TECHNIQUE: One view submitted FINDINGS: There is degenerative changes of the cervical spine. ET tube noted. Surgical instrument is seen with tip overlying the region of C4-C5. IMPRESSION: Intraoperative localization
[2023-09-21] MEDS ORDERED: LACTATED RINGERS 1,000 ML IV ONE (10:17)
[2023-09-21] MEDS ORDERED: HYDROcodone/APAP 5-325MG 1 EACH TAB PO PRN (10:31)
[2023-09-21] MEDS ORDERED: CYCLOBENZAPRINE 10 MG TAB PO PRN (10:31)
[2023-09-21] MEDS ORDERED: ONDANSETRON 4 MG/2 ML VIAL IVP PRN (10:31)
--- NOTE | 2023-09-21 10:47 | P.OP ---
Date of Procedure: 09/21/23 Preoperative Diagnosis: Cervical myelopathy, cervical myelomalacia, severe cervical stenosis C3 4 C4 5 C5 6, degenerative disease, upper extremity weakness, upper extremity radiculopathy, neck pain, difficulty ambulating Postoperative Diagnosis: Same Anesthesia: GETA Pathology: none sent Condition: stable Disposition: PACU Description of Procedure: BRIEF OPERATIVE NOTE Preoperative Diagnosis:Cervical myelopathy, cervical myelomalacia, severe cervical stenosis C3 4 C4 5 C5 6, degenerative disease, upper extremity weakness, upper extremity radiculopathy, neck pain, difficulty ambulating Postoperative Diagnosis:Cervical myelopathy, cervical myelomalacia, severe cervical stenosis C3 4 C4 5 C5 6, degenerative disease, upper extremity weakness, upper extremity radiculopathy, neck pain, difficulty ambulating Procedure: Anterior cervical decompression with discectomy and fusion C3 4 C4 5 C5 6 Placement of interbody graft C3 4 C4 5 C5 6 Application of anterior cervical plate at C3 4 5 and 6 Surgeon: Dr. Blanco Bingo Usher: Jesus Manuel MULLEN Anesthesia: General anesthesia per Dr. Loyd Estimated blood loss: Approximately 100 mL Complications: None apparent Components implanted: K2M [place] anterior cervical plate system with screws and Vikos interbody allograft bone graft and 1 mL of DBX bone putty Disposition: To recovery room in good stable condition. OPERATIVE INDICATIONS The patient has had long-standing issues in their neck and upper extremities. He is long-standing history of issues at his neck is upper extremities and his legs but he is noticing weakness and worsening over the past few months. He feels that he is getting more debility and is having greater trouble with walking. He feels he is having more trouble with using his hands and fingers with fine movements. The patient has been through conservative treatment. He was found have significant evidence of changes at his cervical spine with degenerative disc disease evidence of stenosis with evidence of cervical myelomalacia and myelopathy. He has significant issues with his low back and his lumbar issues as well. I discussed with him the place that his cervical issues and myelopathy was causing significant damage had significant potential for worsening if left untreated. We discussed various treatment options ranging from conservative to surgical. We discussed various treatment options including surgery, and the patient wishes to proceed with surgery We discussed the risk, patient's alternatives and benefits of surgery including but not limited to, risk of bleeding risk of infection, risk of need for further surgery, risk of decreased, loss of motion, muscle function, malunion nonunion, hardware failure, nerve damage, paralysis, heart attack, and . OPERATIVE SUMMARY After discussing all the risks, patient alternatives and benefits at length, the patient elected to proceed with surgical intervention, signed informed consent, and presented for their procedure. The patient was seen and examined in the preoperative holding area and the surgical site was marked. The patient was given antibiotics and brought to the operating room. The patient was positioned on the operating room table in a supine position being careful to pad any bony prominences and pressure points. The patient was sedated and intubated by anesthesia in standard fashion. Once the airway and C- spine were stabilized the patient's arms were padded and tucked at her side, with her shoulders gently taped. The head was placed in a donut pad with the neck in good neutral alignment and position. We were careful to maintain the patient's cervical spine and good neutral alignment and position throughout. The patient was prepped and draped in a normal standard fashion. An appropriate timeout and keystone protocol performed. We were able to proceed with the surgery. The local wound area was infiltrated with local anesthetic. An incision was made transversely approximately 2-1/2 cm over the appropriate levels at C5. Dissection was taken down subcutaneously to the level of the platysma which was split in line with its fibers. Dissection was taken with a carotid approach, with the trachea and esophagus medial and the carotid sheath laterally. We dissected down to the anterior surface of the vertebral bodies. Intraoperative x-ray was taken which showed a marker at the appropriate level at C4 5. With the appropriate level positively confirmed, we were able to proceed with discectomy at the appropriate levels first at C3 4 and then at C4 5 and then at C5 6. All of the operative levels were exposed appropriately. The patient had all their twitches back, and there was no evidence of recurrent laryngeal issue. The wound was copiously irrigated and suctioned dry as had been done periodically throughout the case. At the appropriate level/levels, I established an annulotomy with an 11 blade scalpel. A discectomy was performed with a combination of pituitary rongeurs, curettes, a high-speed bur, and Kerrison rongeurs. The posterior longitudinal ligament was taken down as were any posterior osteophytes. This gave good central and bilateral foraminal decompression. There is no evidence of any dural tear or leak. The endplates were prepared with a high-speed bur. With the endplates in good parallel position, I was able to size for the appropriate size interbody graft. The wound was irrigated and suctioned dry the graft was prepared and malleted into position. It had good alignment and position with the anterior surface flush with the anterior surface of the vertebral bodies. This was done similarly the appropriate levels. Each level had evidence of severe stenosis centrally and at the neural foramen. I was able to get excellent central and bilateral decompression with a discectomy removal of posterior osteophytes and removal of the posterior longitudinal ligament. This was done first at C34 and then at C4 5 and at C5 6 With the grafts intact, I was able to measure and contour and appropriate sized plate. The plate was positioned at the midline over the appropriate levelsC3 4 C4 5 C5 6. Screw holes were established with a hand drill and drill guide. Screws were placed in good alignment and position with excellent bony purchase. They were seated under the locking device. The construct was checked and found to be stable. Intraoperative x-ray was taken which showed good alignment and position of the implants at the appropriate levels. There was no evidence of any dural tear or leak. Good hemostasis was maintained. The wound was copiously irrigated and suctioned dry as had been done periodically throughout the case. The platysma was closed with absorbable suture. The subcutaneous tissue was closed. The subcuticular tissue was closed with absorbable suture. The wound was cleaned and dried and dressed appropriately. A soft cervical collar was placed appropriately. The patient was woken up by anesthesia, extubated, transferred back gently to their hospital bed and brought to the recovery room in good stable condition. The patient will be admitted to the hospital for appropriate postoperative care, medical management and monitoring. We will continue to follow them closely about the postoperative course.
[2023-09-21 11:02] LABS: Glucose,Whole Blood 224 mg/dL (70-110)
--- NOTE | 2023-09-21 11:12 | XR ---
EXAMINATION TYPE: XR cervical spine 1V DATE OF EXAM: 09/21/2023 COMPARISON: NONE HISTORY: Postop TECHNIQUE: One view is submitted FINDINGS: ET tube noted. There is postsurgical changes compatible with the anterior fusion. Alignment is anatomic. IMPRESSION: Postsurgical changes.
[2023-09-21] MEDS ORDERED: INSULIN ASPART (NovoLOG) 100 UNIT/ML VIAL SQ ONE (11:15)
[2023-09-21] MEDS: SODIUM CHLORIDE 0.9% 1,000 ML IV SCH ×2 (13:58→18:01)
[2023-09-21] MEDS: hydrALAZINE HCL 50 MG TAB PO SCH ×2 (14:55→20:46)
[2023-09-21] MEDS: BENZOCAINE/MENTHOL LOZENG 1 EACH LOZENGE MUCOUS MEM PRN (15:38)
[2023-09-21 16:47] LABS: Glucose,Whole Blood 206 mg/dL (70-110)
[2023-09-21] MEDS ORDERED: INSULN ASP PRT/INSULIN ASPART 100 UNIT/ML 10 ML VIAL SQ SCH (17:30)
--- NOTE | 2023-09-21 17:48 | P.CONS ---
History of Present Illness - Reason for Consult Consult date: 09/21/23 (Status post cervical fusion and rods) Medical management with hypertension and diabetes Requesting physician: Pablito Blanco - History of Present Illness Medical consult Medical reason management medically for diabetes and hypertension. Patient seen [id number] by myself Dictation by Dr. Ayala. Date of service 09/21/2023. Patient underwent anterior cervical decompression with discectomy and fusion cc 34, C4-5, C5-6 Placement of interbody graft C3-C4 C4-C5 C5-C6 Abdomen medication of anterior cervical plate at [id number]-E8 and C6. Underlying diagnosis cervical myelopathy, cervical myelomalacia, severe cervical stenosis [id number] with the upper extremity radiculopathy and neck pain and difficulty of ambulation. Post operative patient seen by myself evaluated [id number] and family at [facility]. Patient is conscious alert oriented 3 HEENT wearing the neck collar hard, his denture is off at this time, but at bedside. Difficult of the swallowing with a history of anesthesia and intubation Mild fascial swelling. Normal hearing and the pupil was equal reactive Able to move his upper and lower extremities with no paresthesia bilateral. On the physical exam: Vital sign temperature 98.0 if all, heart rate 61 bpm regular, his respiratory rate 17 per minute nonlabored, blood pressure 168/65 with a mean 99, earlier blood pressure 150/64 , on 2 L his nasal cannula oxygen saturation 97%. POC glucose 206 covered with insulin to scale. The head was normocephalic atraumatic and pupil was equal reactive conjunctiva was pink sclera was nonicteric extraocular muscle movement is intact Neck was supple with the neck brace, status post right sided neck surgery for the above mentioned fusion Chest is clear to auscultation and percussion no wheezes no rhonchi's The heart: Regular sinus rhythm no chest pain no arrhythmias Abdomen: Protuberant positive bowel sounds no tenderness in the 4 quadrants Extremities: Patient to wearing atherothrombotic stocking, he had some discomfort in the left upper shoulder associated with the arthritis of the left shoulder no tenderness on the costochondral junction or substernal. Able to move his toes and the knees and upper extremities and sensation intact. Patient has multiple medical problem Has been seen by Dr. ANSLEY Martinez telephone interceptor operator Dr. Senia humphrey endocrine and diabetology Dr. Dante Singh neurologist Dr. Te Chavez foci at rest And Dr. Blanco spine orthopedic surgeon because of inability to walk and spinal stenosis of the cervical spine. ALLERGY unknown. Vaccination for covd-19 11/14/2020, for 721, and the blister and 07/20/2021 Him for the ones a vaccine on 05/21/2023. 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 Chronic kidney disease stage III Hyper lipidemia Nicotine dependency Diabetic neuropathy Vitamin D deficiency Osteoarthritis of the joints. History of hemorrhoid History of constipation. Patient is a Has to daughter and 1 son. Assessment: #1 diabetes mellitus type 2 with fluctuation #2 hypertension not well controlled associated also with the pain #3 status post anterior approach of the right neck for the spinal cervical stenosis with fusion and malka placement. #4 chronic kidney disease stage III Recommendation and plan: #1 will hold on insulin 7030 before meals breakfast and supper because of the difficulty of swallowing and eating habit to avoid hypoglycemia #2 continue oral hypoglycemic agent #3 covered with insulin to scale only for now #4 reviewed and they're equal in size L his medication and change the losartan to 100 mg because of the hypertension not well-controlled #5 we'll plan obtain laboratory indicating a.m. for BMP, magnesium, hemoglobin A1c to monitor the current problem with the blood pressure and diabetes. Past Medical History Past Medical History: Diabetes Mellitus, Hyperlipidemia, Hypertension, Myocardial Infarction ([place]) Additional Past Medical History / Comment(s): SEASONAL ALLERGIES. CHRONIC BACK PAIN-CAN ONLY WALK A FEET AT A TIME. N/T TO BILAT HANDS Last Myocardial Infarction Date:: 2005 History of Any Multi-Drug Resistant Organisms: None Reported Past Surgical History: Back Surgery, Bowel Resection, Heart Catheterization With Stent, Tonsillectomy Additional Past Surgical History / Comment(s): COLONOSCOPY, BOWEL RESECTION-8 INCHES REMOVED R/T POLYPS, BILAT CATARACTS REMOVED WITH LENS IMPLANTS Past Anesthesia/Blood Transfusion Reactions: No Reported Reaction Date of Last Stent Placement:: 2005 Smoking Status: Former smoker - Past Family History Mother Family Medical History: No Reported History Medications and Allergies Home Medications Medication Instructions Recorded Confirmed Type Aspirin EC [Ecotrin Low Dose] 81 mg PO PC-SUPPER@1800 01/29/23 09/18/23 History Atorvastatin [Lipitor] 40 mg PO Q2D@2100 01/29/23 09/18/23 History Empagliflozin [Jardiance] 25 mg PO DAILY@0800 01/29/23 09/21/23 History Losartan [Cozaar] 50 mg PO DAILY@0800 01/29/23 09/18/23 History Metoprolol Succinate (ER) [Toprol 25 mg PO DAILY@0800 01/29/23 09/18/23 History Xl] Multivitamins, Thera [Multivitamin 1 tab PO DAILY@0800 01/29/23 09/18/23 History (formulary)] amLODIPine [Norvasc] 5 mg PO PC-BID@0800,1800 01/29/23 09/18/23 History cloNIDine HCL 0.2 mg PO PC-SUPPER@1800 01/29/23 09/21/23 History guaiFENesin [Mucinex] 600 mg PO PC-BID@0800,1800 01/29/23 09/18/23 History hydrALAZINE HCL [Apresoline] 50 mg PO TID@0800,1500,2200 01/29/23 09/18/23 History metFORMIN HCL ER [Glucophage XR] 500 mg PO PC-BID@0800,1800 01/29/23 09/21/23 History Gabapentin 600 mg PO HS 09/18/23 09/18/23 History Insulin NPH Hum/Reg Insulin Hm 15 - 20 units SQ W/SUPPER 09/18/23 09/21/23 History [NovoLIN 70-30 Flexpen] Insulin NPH Hum/Reg Insulin Hm 20 units SQ W/BRKFST 09/18/23 09/21/23 History [NovoLIN 70-30 Flexpen] Allergies Allergy/AdvReac Type Severity Reaction Status Date / Time No Known Allergies Allergy Verified 09/18/23 08:57 Physical Exam Vitals: Vital Signs Temp Pulse Resp BP Pulse Ox 09/21/23 13:37 98.0 F 61 17 168/65 97 09/21/23 13:05 18 150/64 97 09/21/23 12:35 59 L 16 148/62 97 09/21/23 12:22 59 L 14 146/62 97 09/21/23 11:52 60 13 150/64 97 09/21/23 11:37 59 L 12 147/60 97 01/15/24 11:22 59 L 12 157/69 97 09/21/23 11:07 59 L 14 154/68 97 09/21/23 10:52 63 13 159/71 97 09/21/23 06:31 97.6 F 53 L 16 166/93 94 L Intake and Output 09/21/23 09/21/23 09/21/23 06:59 14:59 22:59 Intake Total 150 1301 Output Total 1000 Balance 150 301 Intake: IV 150 1301 Output: Urine 900 Estimated Blood Loss 100 Other: Voiding Method Indwelling Catheter Weight 81.9 kg Results CBC & Chem 7: 09/21/23 06:47 Labs: Abnormal Lab Results - Last 24 Hours (Table) 09/21/23 09/21/23 09/21/23 Range/Units 06:44 11:01 16:46 POC Glucose (mg/dL) 179 H 224 H 206 H (70-110) mg/dL
[2023-09-21] MEDS: cloNIDine HCL 0.2 MG TAB PO SCH (18:00)
[2023-09-21] MEDS: amLODIPine 5 MG TAB PO SCH (18:00)
[2023-09-21] MEDS: metFORMIN 500 MG TAB PO SCH (18:00)
[2023-09-21] MEDS: guaiFENesin 600 MG TABLET.ER PO SCH (18:01)
[2023-09-21] MEDS: INSULIN ASPART (NovoLOG) 100 UNIT/ML VIAL SQ SCH ×2 (18:01→20:47)
[2023-09-21] MEDS ORDERED: VANCOMYCIN 1,250 MG in SODIUM CHLORIDE 0.9% 250 ML IVPB ONE (19:00)
[2023-09-21 19:50] LABS: Glucose,Whole Blood 317 mg/dL (70-110)
[2023-09-21] MEDS: GABAPENTIN 300 MG CAP PO SCH (20:46)
[2023-09-21] MEDS: ATORVASTATIN 40 MG TAB PO SCH (20:46)
[2023-09-22] MEDS: SODIUM CHLORIDE 0.9% 1,000 ML IV SCH ×2 (01:17→13:10)
[2023-09-22] MEDS: LACTATED RINGERS 1,000 ML IV SCH (06:06)
[2023-09-22] MEDS ORDERED: VANCOMYCIN IV PER PHARMACY 1 EACH MISC MISCELLANE PRN (07:00)
[2023-09-22] MEDS ORDERED: INSULN ASP PRT/INSULIN ASPART 100 UNIT/ML 10 ML VIAL SQ SCH (07:30)
[2023-09-22] MEDS ORDERED: INSULIN NPH 100 UNIT/ML 10 ML VIAL SQ SCH (07:30)
--- NOTE | 2023-09-22 07:54 | P.PN ---
Progress Note - Text Progress Note Date: 09/22/23 Postoperative day #1 Patient is seen and examined today at bedside. The patient has some pain around the surgical site as expected. Pain is being controlled with medication. He has not yet been out of bed. He saw his is fully intact. He has been able to tolerate some soft diet. Physical Exam Afebrile with stable vital signs Abdomen is soft nontender. Chest has good excursion deep and space expiration The incision site is clean dry and intact. No erythema there is no purulence. His neck is soft and supple. Extremities have not had neurologic change from prior to surgery. He is moving his arms adequately this morning. Calves and thighs were soft nontender without evidence of DVT. Assessment/Plan Postoperative day 1 status post anterior cervical decompression with discectomy fusion C4 5 C5 6 and C3 4 for his cervical myelopathy with severe cervical stenosis with a lower extremity weakness Difficulty ambulating Patient is progressing as expected from the surgery. He has been having significant difficulty with his mobility and ambulation at home. I do not think he is can be safely moving around well on his own. We will see how he progresses over the next day or 2. We will have therapy work with him but he is a good candidate for custodial rehab prior to d ischarging home due to his cervical myelopathy and difficulty ambulating with weakness We will continue to increase the patient's mobilization with therapy. We will continue pain control with oral or IV medications. We'll continue to follow patient closely.
[2023-09-22 08:00] LABS: Glucose,Whole Blood 171 mg/dL (70-110)
[2023-09-22] MEDS ORDERED: LOSARTAN 50 MG TAB PO SCH (08:00)
[2023-09-22] MEDS: INSULIN ASPART (NovoLOG) 100 UNIT/ML VIAL SQ SCH ×4 (08:47→20:31)
[2023-09-22] MEDS: DAPAGLIFLOZIN PROPANEDIOL 10 MG TABLET PO SCH (08:48)
[2023-09-22] MEDS: hydrALAZINE HCL 50 MG TAB PO SCH ×3 (08:48→20:23)
[2023-09-22] MEDS: amLODIPine 5 MG TAB PO SCH ×2 (08:48→17:53)
[2023-09-22] MEDS: guaiFENesin 600 MG TABLET.ER PO SCH ×2 (08:48→17:53)
[2023-09-22] MEDS: LOSARTAN 50 MG TAB PO SCH (08:49)
[2023-09-22] MEDS: metFORMIN 500 MG TAB PO SCH ×2 (08:49→17:52)
[2023-09-22] MEDS: METOPROLOL SUCCINATE (ER) 25 MG TAB.ER.24H PO SCH (08:50)
[2023-09-22] MEDS: SENNOSIDES-DOCUSATE SODIUM 1 EACH TAB PO SCH (08:50)
[2023-09-22] MEDS: MULTIVITAMINS, THERA 1 EACH TAB PO SCH (08:50)
[2023-09-22 11:17] LABS: BUN/Creat Ratio 24.44 Ratio (12.00-20.00); Calcium 9.2 mg/dL (8.7-10.3); Carbon Dioxide 22.5 mmol/L (21.6-31.8); Chloride 103 mmol/L (96-109); Glucose 173 mg/dL (70-110); Potassium 4.5 mmol/L (3.5-5.5); Sodium 138 mmol/L (135-145)
[2023-09-22 12:26] LABS: Glucose,Whole Blood 267 mg/dL (70-110)
--- NOTE | 2023-09-22 13:05 | P.PN ---
Subjective Progress Note Date: 09/22/23 Progress note date of service 09/22/[address] Felix. Patient seen and evaluated [id number] Discussed with the patient and his daughters. Patient is swallowing difficulty has been improved. Status post surgery of the cervical spine anterior approach by Dr. Blanco on 09/21/2023. Follow-up on the medical consult. Patient has underlying history of diabetes, hypertension, Reviewed the laboratory today: Creatinine 0.9 Glucose 173 in a.m. 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 Magnesium is normal and calcium is normal. Vital signs stable Temperature 98.1 F oral, heart rate 69, respiratory rate 18/m nonlabored, Blood pressure 146/66 and repeat is 174/66. Oxygen saturation on room air 97%, 96% on room air On exam Patient is conscious alert oriented 3 and his daughters around them communicating well able to swallow, moving 4 extremities with no numbness or tingling or evidence of any other neurological sequelae. Wearing the neck collar Chest was clear to auscultation percussion Heart regular sinus rhythm Abdomen is soft positive bowel sounds Extremities positive pulses and he had edema of the dorsum of the feet as well as the ankle 1+. Neurologically no deficits Assessment: And plan #1 hypertension not well-controlled probably due to volume expansion #2 he has IV fluids 75 mL/h able to eat and swallow and drink fluid and he has another IV in the plan discontinuation of lactated Ringer as well as decrease the 0.9 normal saline to 20 mL an hour and leg elevation. #3 diabetes mellitus with activation covered with insulin to scale. On total he will be discharged and he follow Dr. Conn order with the 7030 and he will be and doing his diabetes as outpatient. #4 with still monitoring diabetes and blood sugar. We'll follow with you thank you Objective - Vital Signs Vital signs: Vital Signs Temp 98.1 F 09/22/23 07:53 Pulse 69 09/22/23 07:53 Resp 18 09/22/23 07:53 BP 174/66 09/22/23 07:53 Pulse Ox 96 09/22/23 07:53 FiO2 Intake & Output 09/21/23 09/22/23 09/22/23 18:59 06:59 18:59 Intake Total 1301 60 Output Total 1875 3006 1050 Balance -574 -9106 -1050 Intake: IV 1301 Oral 60 Output: Urine 1775 3006 1050 Estimated Blood Loss 100 Other: Voiding Method Indwelling Catheter Indwelling Catheter Indwelling Catheter - Labs CBC & Chem 7: 09/22/23 06:10 Labs: Abnormal Lab Results - Last 24 Hours (Table) 09/21/23 09/21/23 09/22/23 Range/Units 16:46 19:49 06:10 Anion Gap (4.00-12.00) mmol/L BUN/Creatinine Ratio (12.00-20.00) Ratio Glucose (70-110) mg/dL POC Glucose (mg/dL) 206 H 317 H (70-110) mg/dL Hemoglobin A1c 8.7 H (<=6.0) % 09/22/23 09/22/23 09/22/23 Range/Units 06:10 07:58 12:26 Anion Gap 12.50 H (4.00-12.00) mmol/L BUN/Creatinine Ratio 24.44 H (12.00-20.00) Ratio Glucose 173 H (70-110) mg/dL POC Glucose (mg/dL) 171 H 267 H (70-110) mg/dL Hemoglobin A1c (<=6.0) %
[2023-09-22] MEDS: BENZOCAINE/MENTHOL LOZENG 1 EACH LOZENGE MUCOUS MEM PRN (15:18)
[2023-09-22 17:32] LABS: Glucose,Whole Blood 265 mg/dL (70-110)
[2023-09-22] MEDS: ASPIRIN 81 MG PO SCH (17:52)
[2023-09-22] MEDS: cloNIDine HCL 0.2 MG TAB PO SCH (17:53)
[2023-09-22] MEDS: BENZONATATE 100 MG CAP PO PRN (18:30)
--- NOTE | 2023-09-22 19:20 | XR ---
EXAMINATION TYPE: XR chest 1V DATE OF EXAM: 09/22/2023 COMPARISON: 08/13/2023 HISTORY: Shortness of breath TECHNIQUE: Single frontal view of the chest is obtained. FINDINGS: There is no focal air space opacity, pleural effusion, or pneumothorax seen. The cardiac silhouette size is within normal limits. The osseous structures are intact. IMPRESSION: No acute process.
[2023-09-22] MEDS: GABAPENTIN 300 MG CAP PO SCH (20:23)
[2023-09-22 20:25] LABS: Glucose,Whole Blood 294 mg/dL (70-110)
[2023-09-23] MEDS: BENZONATATE 100 MG CAP PO PRN (00:12)
[2023-09-23 07:59] LABS: Glucose,Whole Blood 133 mg/dL (70-110)
[2023-09-23] MEDS: INSULIN ASPART (NovoLOG) 100 UNIT/ML VIAL SQ SCH ×4 (08:16→21:42)
[2023-09-23] MEDS: MULTIVITAMINS, THERA 1 EACH TAB PO SCH (09:40)
[2023-09-23] MEDS: METOPROLOL SUCCINATE (ER) 25 MG TAB.ER.24H PO SCH (09:41)
[2023-09-23] MEDS: amLODIPine 5 MG TAB PO SCH ×2 (09:41→18:01)
[2023-09-23] MEDS: SENNOSIDES-DOCUSATE SODIUM 1 EACH TAB PO SCH (09:41)
[2023-09-23] MEDS: hydrALAZINE HCL 50 MG TAB PO SCH ×3 (09:41→21:12)
[2023-09-23] MEDS: guaiFENesin 600 MG TABLET.ER PO SCH ×2 (09:41→18:01)
[2023-09-23] MEDS: metFORMIN 500 MG TAB PO SCH ×2 (09:41→18:04)
[2023-09-23] MEDS: DAPAGLIFLOZIN PROPANEDIOL 10 MG TABLET PO SCH (09:42)
[2023-09-23] MEDS: LOSARTAN 50 MG TAB PO SCH (09:42)
[2023-09-23 12:19] LABS: Glucose,Whole Blood 260 mg/dL (70-110)
--- NOTE | 2023-09-23 12:22 | P.DS ---
Providers Date of admission: 09/21/23 05:40 Expected date of discharge: 09/23/23 Attending physician: Pablito Blanco Consults: 09/21/23 10:47 Consult Physician Routine Consulting Provider: Silver Ayala Reason/Comments: neducal management Do you want consulting provider notified?: Yes Primary care physician: Silver Ayala - Discharge Diagnosis(es) (1) Myelomalacia of cervical cord Current Visit: Yes Status: Acute (2) Cervical myelopathy Current Visit: Yes Status: Acute (3) Radiculopathy affecting upper extremity Current Visit: Yes Status: Acute (4) Cervicalgia Current Visit: Yes Status: Acute (5) Cervical stenosis of spinal canal Current Visit: Yes Status: Acute (6) Upper extremity weakness Current Visit: Yes Status: Acute (7) Degenerative cervical disc Current Visit: Yes Status: Acute (8) Hypertension Current Visit: Yes Status: Acute (9) Diabetes mellitus Current Visit: Yes Status: Acute Hospital Course: This is a pleasant 78-year-old male who presented with cervical myelopathy, cervical myelomalacia, C3-4, C4-5, and C5-6 severe cervical stenosis, cervical degenerative disc disease, upper extremity weakness with radiculopathy, cervical pain, and difficulty with ambulation who failed outpatient conservative therapy. He was admitted for a C3-4, C4-5, and C5-6 anterior cervical decompression and fusion. The patient tolerated the procedure well and did well postoperatively. He does continue to have difficulty with mobilization due to his cervical myelomalacia and cervical myelopathy. We are planning for discharge to a rehabilitation facility today. Case management states this has been approved by his insurance. He will be clear for discharge today. Patient feels his pain is adequately controlled. He has not had significant change in his symptoms overall postoperatively but states his pain is controlled. He is able to eat but does have a sore throat. He continues to utilize a soft cervical collar while sleeping and lying in bed. He continues with his hard cervical collar when upright and with activities. Condition on day of discharge stable. Patient will be discharged home debilitation facility. Patient was cleared preoperatively for surgery by Dr. Ayala. Patient currently denies any nausea, vomiting, fever, or chills. Patient is eating and voiding freely without difficulty. Patient may shower Optifoam dressing intact. Patient may remove Optifoam dressing in 3 days and shower without a dressing at that time. Patient should refrain from driving until at least after their first follow-up appointment in the office. Patient should avoid excessive neck flexion, extension, rotation, and lateral sidebending; no overhead lifting; no lifting greater than 10 pounds. Patient must continue a hard cervical collar during the day while sitting upright and with increased activities. He may wear a soft cervical collar while lying in bed and sleeping. MAPS has been reviewed today, 09/23/2023. An "Opiod Start Talking" Form has been signed and placed in the patient's chart. A prescription has been written for hydrocodone 5 mg/325 mg, 1 tablet every 6 hours as needed for acute pain, dispensed #21. He is also given a prescription for baclofen 10 mg, 1 tab, 3 times a day, as needed for muscle spasm, dispensed #60. Patient will need clearance by medicine prior to discharge today. Medicine will complete the med rec. Patient's other medical diagnoses include hypertension and diabetes mellitus. Patient has been utilizing a walker to aid in ambulation. He should continue to do so. Physical Exam on day of discharge: Patient is awake, alert, and oriented 3 Vital signs stable Good chest excursion with deep inspiration and expiration Adequate range of motion of the cervical spine with adequate flexion, extension, and bilateral rotation Guardian Ad Litem strength, thumb strength, interosseous strength, biceps strength, triceps strength, and shoulder strength positive sustained bilaterally Soft cervical collar intact Incision is clean, dry, and intact; no erythema, purulence, or signs of infection Mild generalized swelling around the anterior cervical spine without obvious fluid collection Optifoam dressing intact Procedures: C3-4, C4-5, and C5-6 anterior cervical decompression and fusion Patient Condition at Discharge: Stable Plan - Discharge Summary Discharge Rx Participant: Yes New Discharge Prescriptions: New HYDROcodone/APAP 5-325MG [[place] 5] 1 each PO Q6HR PRN #28 tab PRN Reason: Pain Baclofen 10 mg PO TID PRN #90 tab PRN Reason: Spasms No Action Metoprolol Succinate (ER) [Toprol Xl] 25 mg PO DAILY@0800 hydrALAZINE HCL [Apresoline] 50 mg PO TID@0800,1500,2200 metFORMIN HCL ER [Glucophage XR] 500 mg PO PC-BID@0800,1800 Aspirin EC [Ecotrin Low Dose] 81 mg PO PC-SUPPER@1800 guaiFENesin [Mucinex] 600 mg PO PC-BID@0800,1800 Losartan [Cozaar] 50 mg PO DAILY@0800 Empagliflozin [Jardiance] 25 mg PO DAILY@0800 Gabapentin 600 mg PO HS Insulin NPH Hum/Reg Insulin Hm [NovoLIN 70-30 Flexpen] 20 units SQ W/BRKFST Atorvastatin [Lipitor] 40 mg PO Q2D@2100 cloNIDine HCL 0.2 mg PO PC-SUPPER@1800 amLODIPine [Norvasc] 5 mg PO PC-BID@0800,1800 Multivitamins, Thera [Multivitamin (formulary)] 1 tab PO DAILY@0800 Insulin NPH Hum/Reg Insulin Hm [NovoLIN 70-30 Flexpen] 15 - 20 units SQ W/SUPPER Discharge Medication List Aspirin EC [Ecotrin Low Dose] 81 mg PO PC-SUPPER@1800 01/29/23 [History] Atorvastatin [Lipitor] 40 mg PO Q2D@209901/29/23 [History] Empagliflozin [Jardiance] 25 mg PO DAILY@0801/29/23 [History] Losartan [Cozaar] 50 mg PO DAILY@0800 01/29/23 [History] Metoprolol Succinate (ER) [Toprol Xl] 25 mg PO DAILY@0801/29/23 [History] Multivitamins, Thera [Multivitamin (formulary)] 1 tab PO DAILY@0800 01/29/23 [History] amLODIPine [Norvasc] 5 mg PO PC-BID@0800,1800 01/29/23 [History] cloNIDine HCL 0.2 mg PO PC-SUPPER@179901/29/23 [History] guaiFENesin [Mucinex] 600 mg PO PC-BID@0800,179901/29/23 [History] hydrALAZINE HCL [Apresoline] 50 mg PO TID@0800,1500,2200 01/29/23 [History] metFORMIN HCL ER [Glucophage XR] 500 mg PO PC-BID@0800,1800 01/29/23 [History] Gabapentin 600 mg PO HS 09/18/23 [History] Insulin NPH Hum/Reg Insulin Hm [NovoLIN 70-30 Flexpen] 15 - 20 units SQ W/SUPPER 09/18/23 [History] Insulin NPH Hum/Reg Insulin Hm [NovoLIN 70-30 Flexpen] 20 units SQ W/BRKFST [History] Baclofen 10 mg PO TID PRN #90 tab 09/23/23 [Rx] HYDROcodone/APAP 5-325MG [[place] 5] 1 each PO Q6HR PRN #28 tab 09/23/23 [Rx] Follow up Appointment(s)/Referral(s): Jesus Manuel Lang, DAYANNA [PHYSICIAN APPLICATION SUPPORT MANAGER] - 1 Week (Patient may follow-up with Jesus Manuel Lang PA-C or Dr. Osbaldo Blanco at [facility] in 2-3 weeks following discharge. ) Activity/Diet/Wound Care/Special Instructions: 1. Patient may shower with Optifoam dressing intact. 2. Patient may remove Optifoam dressing in 3 days and shower without a dressing at that time. 3. Patient must wear a hard cervical collar while upright and with increased activities. 4. Patient may may wear soft cervical collar for comfort support while lying down or sleeping. 5. Patient should refrain from driving until at least after their first follow- up appointment in the office. 6. Patient should avoid excessive cervical flexion, extension, and side bending; avoid overhead lifting; no lifting greater than 10 pounds 7. Take medications as prescribed 8. Patient should avoid anti-inflammatory medications over the next 6 weeks postoperatively 9. Patient is encouraged to continue using a walker to aid in ambulation 10. Do not soak in tub Discharge Disposition: TRANSFER TO SNF/ECF
[2023-09-23] MEDS: SODIUM CHLORIDE 0.9% 1,000 ML IV SCH (13:16)
--- NOTE | 2023-09-23 15:02 | P.PN ---
Subjective Progress Note Date: 09/23/23 f progress note Date of service 09/23/[address] Ayala. Orthopedic surgeon discharge patient today to rule abrasions on the colvin. Patient seen [id number] today and evaluated. Discussed with his daughter as well as the patient, I don't go to [facility] [place] and he will be taken over by assigned physician in the senior care. Attending physician Dr. Blanco spine orthopedic surgeon. Pain medication has been prescribed by orthopedic surgeon Dr. Blanco. With the underlying discharge diagnoses Cervical stenosis and myelopathy with the fusion and rods of the anterior right side of the neck patient wearing neck brace. Farther instruction from the orthopedic spine surgeon and his PA Bharat. Other medical diagnoses: Diabetes mellitus type [address] Davis endocrinology, please contact him if you need any for further instruction on how. Hypertension with hypertensive heart disease History of COPD and uses inhalation therapy if he has any acute exacerbation. Vital signs stable and blood glucose has been controlled with the hospital program Now irregularity tenderness to the program of Dr. Davis. Patient complaint on discharge with inability of swallowing post surgery and I did advice R and Rosa to contact the orthopedic team for for further treatment if needed. Examination today on discharge: Head was normocephalic and atraumatic pupil was equal reactive conjunctiva was pink sclera nonicteric extraocular muscle movement is intact, dentures upper and lower, recent neck surgery on the right side for approaching an anterior approach to his cervical stenosis. She chest he had history of COPD and a chest x-ray done yesterday on 09/22/2023 and there is negative result no evidence of aspiration or pneumonia. Heart regular sinus rhythm with a history of hypertension Abdomen soft. Bowel sounds no organ enlargement no tenderness Extremities positive pulses and able to move his legs and ambulate with walker Neurologically stable. Assessment: And plan. Patient is stable general condition except for the swallowing and they will contact the orthopedic Vital signs stable Patient will be followed as outpatient when he finished the [facility] [place] and return to home to have an appointment with Dr. Felix for follow-up He need to follow-up with Dr. Kahn endocrinology. Follow-up with Dr. Blanco Objective - Vital Signs Vital signs: Vital Signs Temp 98.8 F 09/23/23 12:18 Pulse 74 09/23/23 12:18 Resp 18 09/23/23 12:18 BP 125/80 09/23/23 12:18 Pulse Ox 97 09/23/23 12:18 FiO2 Intake & Output 09/22/23 09/23/23 09/23/23 18:59 06:59 18:59 Intake Total 240 Output Total 1050 Balance -1050 240 Intake: Oral 240 Output: Urine 1050 Other: Voiding Method Indwelling Catheter Indwelling Catheter Indwelling Catheter # Voids 2 1 1 - Labs CBC & Chem 7: 09/22/23 06:10 Labs: Abnormal Lab Results - Last 24 Hours (Table) 09/22/23 09/22/23 09/23/23 Range/Units 17:30 20:23 07:55 POC Glucose (mg/dL) 265 H 294 H 133 H (70-110) mg/dL 09/23/23 Range/Units 12:18 POC Glucose (mg/dL) 260 H (70-110) mg/dL
[2023-09-23] MEDS: methylPREDNISolone SOD SUCCI 125 MG/2 ML VIAL IV SCH ×2 (15:05→21:42)
[2023-09-23 17:06] LABS: Glucose,Whole Blood 238 mg/dL (70-110)
[2023-09-23] MEDS: ASPIRIN 81 MG PO SCH (18:01)
[2023-09-23] MEDS: cloNIDine HCL 0.2 MG TAB PO SCH (18:01)
[2023-09-23 20:25] LABS: Glucose,Whole Blood 383 mg/dL (70-110)
[2023-09-23] MEDS: ATORVASTATIN 40 MG TAB PO SCH (21:12)
[2023-09-23] MEDS: GABAPENTIN 300 MG CAP PO SCH (21:12)
[2023-09-23 23:25] LABS: Glucose,Whole Blood 274 mg/dL (70-110)
[2023-09-24] MEDS ORDERED: INSULIN ASPART (NovoLOG) 100 UNIT/ML VIAL SQ ONE ×2 (00:01→22:30)
[2023-09-24 02:16] LABS: Glucose,Whole Blood 191 mg/dL (70-110)
[2023-09-24 07:03] LABS: Glucose,Whole Blood 192 mg/dL (70-110)
[2023-09-24] MEDS: INSULIN ASPART (NovoLOG) 100 UNIT/ML VIAL SQ SCH ×4 (08:52→20:28)
[2023-09-24] MEDS: methylPREDNISolone SOD SUCCI 125 MG/2 ML VIAL IV SCH ×2 (08:54→20:28)
[2023-09-24] MEDS: metFORMIN 500 MG TAB PO SCH ×2 (08:54→18:02)
[2023-09-24] MEDS: SENNOSIDES-DOCUSATE SODIUM 1 EACH TAB PO SCH (08:55)
[2023-09-24] MEDS: hydrALAZINE HCL 50 MG TAB PO SCH ×3 (08:55→22:06)
[2023-09-24] MEDS: METOPROLOL SUCCINATE (ER) 25 MG TAB.ER.24H PO SCH (08:55)
[2023-09-24] MEDS: LOSARTAN 50 MG TAB PO SCH (08:55)
[2023-09-24] MEDS: amLODIPine 5 MG TAB PO SCH ×2 (08:55→18:02)
[2023-09-24] MEDS: DAPAGLIFLOZIN PROPANEDIOL 10 MG TABLET PO SCH (08:55)
[2023-09-24] MEDS: guaiFENesin 600 MG TABLET.ER PO SCH ×2 (08:55→18:02)
[2023-09-24] MEDS: MULTIVITAMINS, THERA 1 EACH TAB PO SCH (08:55)
--- NOTE | 2023-09-24 11:01 | P.PN ---
Progress Note - Text Progress Note Date: 09/24/23 Postoperative day #3 Patient is seen and examined today at bedside. The patient has some pain around the surgical site as expected. Pain is being controlled with medication. He is still having difficulty with his swallowing. He started on some steroid yesterday. His voice is still gurgling Physical Exam Afebrile with stable vital signs Abdomen is soft nontender. Chest has good excursion deep and space expiration The incision site is clean dry and intact. No erythema there is no purulence. There is mild soft swelling but there is no tension at his neck. The dressing is clear Extremities have not had neurologic change from prior to surgery. He is motion intact in his bilateral upper extremities but still physical to with fine motor at his hands Calves and thighs were soft nontender without evidence of DVT. Assessment/Plan Postoperative day #3 status post anterior cervical decompression with discectomy and fusion for his cervical myelopathy with cervical stenosis and upper extremity weakness Dysphagia postoperatively Patient is progressing as expected from the surgery in terms of his upper extremity function in his pain. We will continue to increase the patient's mobilization with therapy. He still having difficulty with his swallowing and we will obtain a bedside swallow evaluation and try to determine his risk of aspiration. The patient has a number of medical issues and with his myelopathy and difficulty with his ambulating he needs placement with [facility] post hospitalization. We have been approved for this and would like to get his swallowing oral intake established before he goes We will continue pain control with oral or IV medications. We'll continue to follow patient closely.
[2023-09-24 11:51] LABS: Glucose,Whole Blood 325 mg/dL (70-110)
--- NOTE | 2023-09-24 15:08 | FL ---
COMPARISON: NONE DATE OF EXAM: 09/24/2023 HISTORY: Dysphasia A number of thin and thick substances were ingested under the care of the department of speech pathol ogy. There is trace amount of aspiration with thin barium. There is transient aspiration with all lloyd bstances with deep penetration seen with thin barium. There is no evidence of obstruction. 1 minute and 47 seconds of fluoroscopy provided. DAP not provided. IMPRESSION: 1. Trace amount of aspiration with thin barium. 2. Transient penetration with deep penetration seen with ingestion of thin barium.
[2023-09-24] MEDS: SODIUM CHLORIDE 0.9% 1,000 ML IV SCH (16:17)
[2023-09-24 17:16] LABS: Glucose,Whole Blood 184 mg/dL (70-110)
[2023-09-24] MEDS: ASPIRIN 81 MG PO SCH (18:02)
[2023-09-24] MEDS: cloNIDine HCL 0.2 MG TAB PO SCH (18:03)
[2023-09-24 20:12] LABS: Glucose,Whole Blood 448 mg/dL (70-110)
[2023-09-24] MEDS: GABAPENTIN 300 MG CAP PO SCH (20:28)
[2023-09-24] MEDS: ATORVASTATIN 40 MG TAB PO SCH (20:28)
[2023-09-24 21:58] LABS: Glucose,Whole Blood 275 mg/dL (70-110)
[2023-09-25 07:16] LABS: Glucose,Whole Blood 157 mg/dL (70-110)
--- NOTE | 2023-09-25 08:56 | P.DS ---
Providers Date of admission: 09/21/23 05:40 Expected date of discharge: 09/25/23 Attending physician: Pablito Blanco Consults: 09/21/23 10:47 Consult Physician Routine Consulting Provider: Silver Ayala Consult Reason/Comments: neducal management Do you want consulting provider notified?: Yes Primary care physician: Silver Ayala - Discharge Diagnosis(es) (1) Myelomalacia of cervical cord Current Visit: Yes Status: Acute (2) Cervical myelopathy Current Visit: Yes Status: Acute (3) Radiculopathy affecting upper extremity Current Visit: Yes Status: Acute (4) Cervicalgia Current Visit: Yes Status: Acute (5) Cervical stenosis of spinal canal Current Visit: Yes Status: Acute (6) Upper extremity weakness Current Visit: Yes Status: Acute (7) Degenerative cervical disc Current Visit: Yes Status: Acute (8) Hypertension Current Visit: Yes Status: Acute (9) Diabetes mellitus Current Visit: Yes Status: Acute Hospital Course: This is a pleasant 78-year-old male who presented with cervical myelopathy, cervical myelomalacia, C3-4, C4-5, and C5-6 severe cervical stenosis, cervical degenerative disc disease, upper extremity weakness with radiculopathy, cervical pain, and difficulty with ambulation who failed outpatient conservative therapy. He was admitted for a C3-4, C4-5, and C5-6 anterior cervical decompression and fusion. The patient tolerated the procedure but has been recovering slowly postoperatively. He does continue to have difficulty with mobilization due to his cervical myelomalacia and cervical myelopathy. We are planning for discharge to a rehabilitation facility today. Case management states this has been approved by his insurance. He will be clear for discharge today from an orthopedic spine standpoint. Patient feels his pain is adequately controlled. He has not had significant change in his symptoms overall postoperatively but states his pain is controlled. He is able to eat but does have a sore throat. He continues to utilize a soft cervical collar while sleeping and lying in bed. He continues with his hard cervical collar when upright and with activities. Condition on day of discharge stable. Patient will be discharged home debilitation facility. Patient was cleared preoperatively for surgery by Dr. Ayala. Patient currently denies any nausea, vomiting, fever, or chills. Patient is eating and voiding freely without difficulty. Patient may shower Optifoam dressing intact. Patient may remove Optifoam dressing in 3 days and shower without a dressing at that time. Patient should refrain from driving until at least after their first follow-up appointment in the office. Patient should avoid excessive neck flexion, extension, rotation, and lateral sidebending; no overhead lifting; no lifting greater than 10 pounds. Significantly, patient has had difficulty swallowing postoperatively. He failed a swallow study. He also filled a modified barium swallow study. This is currently being managed by medicine. Prior to discharge to rehabilitation today, patient will need to be cleared by medicine with a dietary plan intact. Patient must continue a hard cervical collar during the day while sitting upright and with increased activities. He may wear a soft cervical collar while lying in bed and sleeping. MAPS has been reviewed on 09/23/2023. An "Opiod Start Talking" Form has been signed and placed in the patient's chart. A prescription has been written for hydrocodone 5 mg/325 mg, 1 tablet every 6 hours as needed for acute pain, dispensed #21. He is also given a prescription for baclofen 10 mg, 1 tab, 3 times a day, as needed for muscle spasm, dispensed #60. Patient will need clearance by medicine prior to discharge today. Medicine will complete the med rec. Patient's other medical diagnoses include hypertension and diabetes mellitus. Patient has been utilizing a walker to aid in ambulation. He should continue to do so. Physical Exam on day of discharge: Patient is awake, alert, and oriented 3 Vital signs stable Good chest excursion with deep inspiration and expiration Adequate range of motion of the cervical spine with adequate flexion, extension, and bilateral rotation Ginger Farmer strength, thumb strength, interosseous strength, biceps strength, triceps strength, and shoulder strength positive sustained bilaterally Soft cervical collar intact Incision is clean, dry, and intact; no erythema, purulence, or signs of infection Mild generalized swelling around the anterior cervical spine without obvious fluid collection Optifoam dressing intact Patient is able to perform active range of motion of the lower extremities bilaterally independently while lying in bed without difficulty Procedures: C3-4, C4-5, and C5-6 anterior cervical decompression and fusion Patient Condition at Discharge: Stable Plan - Discharge Summary Discharge Rx Participant: Yes New Discharge Prescriptions: New HYDROcodone/APAP 5-325MG [[place] 5] 1 each PO Q6HR PRN #28 tab PRN Reason: Pain Sennosides-Docusate Sodium [Senokot-S] 1 each PO DAILY tab Baclofen 10 mg PO TID PRN #90 tab PRN Reason: Spasms Continue Metoprolol Succinate (ER) [Toprol XL] 25 mg PO DAILY@0800 hydrALAZINE HCL [Apresoline] 50 mg PO TID@0800,1500,2200 metFORMIN HCL ER [Glucophage XR] 500 mg PO PC-BID@0800,1800 Aspirin EC [Ecotrin Low Dose] 81 mg PO PC-SUPPER@1800 guaiFENesin [Mucinex] 600 mg PO PC-BID@0800,1800 Losartan [Cozaar] 50 mg PO DAILY@0800 Empagliflozin [Jardiance] 25 mg PO DAILY@0800 Insulin NPH Hum/Reg Insulin Hm [NovoLIN 70-30 Flexpen] 20 units SQ W/BRKFST Atorvastatin [Lipitor] 40 mg PO Q2D@2100 cloNIDine HCL 0.2 mg PO PC-SUPPER@1800 amLODIPine [Norvasc] 5 mg PO PC-BID@0800,1800 Multivitamins, Thera [Multivitamin (formulary)] 1 tab PO DAILY@0800 Insulin NPH Hum/Reg Insulin Hm [NovoLIN 70-30 Flexpen] 15 - 20 units SQ W/SUPPER Discontinued Gabapentin 600 mg PO HS Discharge Medication List Aspirin EC [Ecotrin Low Dose] 81 mg PO PC-SUPPER@1800 01/29/23 [History] Atorvastatin [Lipitor] 40 mg PO Q2D@2100 01/29/23 [History] Empagliflozin [Jardiance] 25 mg PO DAILY@0800 01/29/23 [History] Losartan [Cozaar] 50 mg PO DAILY@0800 01/29/23 [History] Metoprolol Succinate (ER) [Toprol XL] 25 mg PO DAILY@0800 01/29/23 [History] Multivitamins, Thera [Multivitamin (formulary)] 1 tab PO DAILY@0800 01/29/23 [History] amLODIPine [Norvasc] 5 mg PO PC-BID@0800,1800 01/29/23 [History] cloNIDine HCL 0.2 mg PO PC-SUPPER@1800 01/29/23 [History] guaiFENesin [Mucinex] 600 mg PO PC-BID@0800,1800 01/29/23 [History] hydrALAZINE HCL [Apresoline] 50 mg PO TID@0800,1500,2200 01/29/23 [History] metFORMIN HCL ER [Glucophage XR] 500 mg PO PC-BID@0800,1800 01/29/23 [History] Insulin NPH Hum/Reg Insulin Hm [NovoLIN 70-30 Flexpen] 15 - 20 units SQ W/SUPPER 09/18/23 [History] Insulin NPH Hum/Reg Insulin Hm [NovoLIN 70-30 Flexpen] 20 units SQ W/BRKFST 09/18/23 [History] Baclofen 10 mg PO TID PRN #90 tab 09/23/23 [Rx] HYDROcodone/APAP 5-325MG [[place] 5] 1 each PO Q6HR PRN #28 tab 09/23/23 [Rx] Sennosides-Docusate Sodium [Senokot-S] 1 each PO DAILY tab 09/23/23 [Rx] Follow up Appointment(s)/Referral(s): Jesus Manuel Lang, DAYANNA [PHYSICIAN OUTCOMES ANALYST] - 2 Weeks (Patient may follow-up with Jesus Manuel Lang PA-C or Dr. Osbaldo Blanco at [facility] in 2-3 weeks following discharge. ) Activity/Diet/Wound Care/Special Instructions: 1. Patient may shower with Optifoam dressing intact. 2. Patient may remove Optifoam dressing in 3 days and shower without a dressing at that time. 3. Patient must wear a hard cervical collar while upright and with increased activities. 4. Patient may may wear soft cervical collar for comfort support while lying down or sleeping. 5. Patient should refrain from driving until at least after their first follow- up appointment in the office. 6. Patient should avoid excessive cervical flexion, extension, and side bending; avoid overhead lifting; no lifting greater than 10 pounds 7. Take medications as prescribed 8. Patient should avoid anti-inflammatory medications over the next 6 weeks postoperatively 9. Patient is encouraged to continue using a walker to aid in ambulation 10. Do not soak in tub Discharge Disposition: TRANSFER TO SNF/ECF
[2023-09-25] MEDS: INSULIN ASPART (NovoLOG) 100 UNIT/ML VIAL SQ SCH ×2 (09:17→13:43)
[2023-09-25] MEDS: methylPREDNISolone SOD SUCCI 125 MG/2 ML VIAL IV SCH (09:18)
[2023-09-25] MEDS: metFORMIN 500 MG TAB PO SCH (09:19)
[2023-09-25] MEDS: LOSARTAN 50 MG TAB PO SCH (09:24)
[2023-09-25] MEDS: hydrALAZINE HCL 50 MG TAB PO SCH (09:24)
[2023-09-25] MEDS: amLODIPine 5 MG TAB PO SCH (09:24)
[2023-09-25] MEDS: guaiFENesin 600 MG TABLET.ER PO SCH (09:25)
[2023-09-25] MEDS: MULTIVITAMINS, THERA 1 EACH TAB PO SCH (09:25)
[2023-09-25] MEDS: SENNOSIDES-DOCUSATE SODIUM 1 EACH TAB PO SCH (09:25)
[2023-09-25] MEDS: METOPROLOL SUCCINATE (ER) 25 MG TAB.ER.24H PO SCH (09:26)
[2023-09-25] MEDS: DAPAGLIFLOZIN PROPANEDIOL 10 MG TABLET PO SCH (09:26)
[2023-09-25 12:08] LABS: Glucose,Whole Blood 299 mg/dL (70-110)
--- NOTE | 2023-09-25 12:18 | P.PN ---
Subjective Progress Note Date: 09/25/23 (Status post surgical, spinal stenosis cervical myelopathy) Progress note Date of service 09/25/[address] glynn Patient seen [id number] today and evaluated [facility] and equal size Orthopedic surgeon discharge patient today and requested me to see the patient and evaluate medication Discussed with the speech pathology Cyndie and discussed with her the speech pathology recommendation which send me through a [facility] recommended patient to see ENT i.e. Dr. Osuna, [facility] Gray in 1 week Also recommended to have repeat swallow study with dye in 7-10 days at [facility]. Recommended continue with incentive spirometry 4 times a day and when necessary. Discussed with the case aide Sunny. To communicate speech pathology recommendation and the diet for the patient. Steroid was discontinued, caused severe elevation of blood glucose. Patient is ambulatory conscious alert oriented 3 with the swallowing difficulties. Patient in the hospital had swallow studies bedside and with the Gastrografin and recommendation on the chart H pathology has been consulted by the orthopedic surgeon. Vital sign Temperature 98.8 F oral, pulse rate 71 regular sinus, respiratory rate 19. Blood pressure controlled 148/74 oxygen saturation is 98% on room air. Discussed with patient and his daughter in regard of the recommendation and extended time of discussion with the patient as well [id number]. On exam: Conscious alert oriented 3 able to communicate freely with still his difficulty of swallowing in his speech pathology very considered the epiglottis and the swelling of the neck post surgery. His current symptoms was not present prior to the surgery. Head was normocephalic and atraumatic pupil was equal reactive conjunctiva was pink sclera was nonicteric extraocular muscle movement is intact Normal hearing and difficulty with swallowing with the recommendation of the speech pathology Neck wearing the neck collar post surgery of the cervical stenosis and myelopathy per Dr. Blanco Chest clear to auscultation and percussion. No wheezes no rhonchi's Heart regular sinus rhythm no arrhythmias Abdomen positive bowel sounds no tenderness he can eat with the recommendation of the speech pathology and dietitian Extremities he had 1+ pitting edema and he need to have leg elevation and compression stocking to be wearing it in the morning and take it off at night Psychiatry stable Neurologically stable moving 4 extremities however only problem the swelling of the neck post surgery and dysphagia and stated that the epiglottis not working appropriately with the minor aspiration. Assessment: Patient is stable for transfer to [facility] the [place], he will be followed by different physician depend on the facility Underlying post operative dysphagia with the swelling of the oropharyngeal and dysfunction of the epiglottis. Status post anterior approach of cervical stenosis and cervical myelopathy. Diabetes mellitus type 2 currently on insulin and oral antidiabetic which she was designed by Dr. Davis refractory mixer Hypertension with hypertensive heart disease on medication fairly controlled. Pain at the site of the surgery treated by the orthopedic with pain medication. Patient is ambulatory conscious alert able to make his own decisions. Plan: #1 patient continue to use incentive spirometry #22 follow the speech pathology recommendation done in [facility] and the intermediate need to communicate with the speech pathology for for further adjustment and input #3 also communication between the dietitian and [facility] and the dietitian in the intermediate for the type of the diet with the dysphagia and swallow difficulties. #4 continue the current medication #5 need for therapy appointment with ENT as outpatient of the patient and the daughter choice. #6 wearing the compression stocking in the morning and remove it at night with the leg elevation. #[address] Davis refractory mixer for for further follow-up and adjustment of diabetes if needed. #8 we'll see him as outpatient after he discharged from the intermediate. Objective - Vital Signs Vital signs: Vital Signs Temp 98.8 F 09/25/23 07:54 Pulse 71 09/25/23 07:54 Resp 19 09/25/23 07:54 BP 148/74 09/25/23 07:54 Pulse Ox 98 09/25/23 07:54 FiO2 Intake & Output 09/24/23 09/25/23 09/25/23 18:59 06:59 18:59 Intake Total 238 Output Total 3 Balance -3 238 Intake: Oral 238 Output: Stool 3 Other: Voiding Method Toilet Toilet # Voids 1 - Labs CBC & Chem 7: 09/22/23 06:10 Labs: Abnormal Lab Results - Last 24 Hours (Table) 09/24/23 09/24/23 09/24/23 Range/Units 17:14 20:10 21:52 POC Glucose (mg/dL) 184 H 448 H 275 H (70-110) mg/dL 09/25/23 Range/Units 07:13 POC Glucose (mg/dL) 157 H (70-110) mg/dL
[2023-09-25 14:10] VITALS: BP 154/55; PULSE 92; RESP 22; TEMP 98
== END 2023-09-25 14:34 | DRG 29 ==
LOC: 2ORMAIN 05:40 → EDSTATUS 07:30 → 5NMEDONC 12:51
PROVIDERS: ADMIT Orthopaedic Surgery Orthopaedic Surgery of the Spine; ATTEND Orthopaedic Surgery Orthopaedic Surgery of the Spine
PROC: 00NW0ZZ Release Cervical Spinal Cord, Open Approach (ICD-10-PCS; 2023-09-21)
PROC: 0RB30ZZ Excision of Cervical Vertebral Disc, Open Approach (ICD-10-PCS; 2023-09-21)
PROC: 01N10ZZ Release Cervical Nerve, Open Approach (ICD-10-PCS; 2023-09-21)
PROC: 4A11X4G Monitoring of Peripheral Nervous Electrical Activity, Intraoperative, External Approach (ICD-10-PCS; 2023-09-21)
PROC: 0RG20A0 Fusion of 2 or more Cervical Vertebral Joints with Interbody Fusion Device, Anterior Approach, Anterior Column, Open Approach (ICD-10-PCS; principal; 2023-09-21 07:30)
DX: G95.89 Other specified diseases of spinal cord (principal); M50.023 Cervical disc disorder at C6-C7 level with myelopathy; R53.1 Weakness; N18.30 Chronic kidney disease, stage 3 unspecified; E11.22 Type 2 diabetes mellitus with diabetic chronic kidney disease; E78.5 Hyperlipidemia, unspecified; I25.2 Old myocardial infarction; R13.10 Dysphagia, unspecified; R13.12 Dysphagia, oropharyngeal phase; M50.123 Cervical disc disorder at C6-C7 level with radiculopathy; J44.9 Chronic obstructive pulmonary disease, unspecified; I13.10 Hypertensive heart and chronic kidney disease without heart failure, with stage 1 through stage 4 chronic kidney disease, or unspecified chronic kidney disease; E11.42 Type 2 diabetes mellitus with diabetic polyneuropathy; Z87.19 Personal history of other diseases of the digestive system; Z79.84 Long term (current) use of oral hypoglycemic drugs; Z79.4 Long term (current) use of insulin; Z79.899 Other long term (current) drug therapy; Z87.891 Personal history of nicotine dependence; Z96.1 Presence of intraocular lens; Z98.42 Cataract extraction status, left eye; Z98.41 Cataract extraction status, right eye; Z86.010 Personal history of colon polyps
CPT/HCPCS: 71045; 72020; 74230; 80048; 83036; 83735; 84132

== ENCOUNTER 2023-09-26 12:10 | Inpatient (IN) | payer MEDICARE ==
[2023-09-26] MEDS ORDERED: DILTIAZEM DRIP BOLUS FROM BAG 1 MG SOLN IV ONE (12:20)
[2023-09-26] MEDS ORDERED: SODIUM CHLORIDE 0.9% 500 ML 500 ML IV STA (12:20)
--- NOTE | 2023-09-26 12:24 | ED ---
General Adult HPI - General Chief complaint: Arrhythmia/Palpitations Stated complaint: Irregular Heart Beat, New On Set Afib Time Seen by Provider: 09/26/23 12:15 Source: patient, EMS, RN notes reviewed, old records reviewed Mode of arrival: EMS Limitations: no limitations - History of Present Illness Initial comments: This is an 78-year-old male who presents emergency Department because at the [facility] he was told his heart was racing and it was irregular. Patient states she had neck surgery by Dr. Blanco on Thursday. Patient denies any shortnes s of breath per patient denies any chest pain or palpitations. Patient did state that he has some difficulty sleeping last night. Patient denies any history of an irregular heartbeat. Patient denies any back pain. Patient denies headache patient denies lightheadedness or dizziness. Patient denies any abdominal pain. - Related Data Home Medications Medication Instructions Recorded Confirmed Aspirin EC [Ecotrin Low Dose] 81 mg PO PC-SUPPER@1800 01/29/23 09/18/23 Atorvastatin [Lipitor] 40 mg PO Q2D@2100 01/29/23 09/18/23 Empagliflozin [Jardiance] 25 mg PO DAILY@0800 01/29/23 09/21/23 Losartan [Cozaar] 50 mg PO DAILY@0800 01/29/23 09/18/23 Metoprolol Succinate (ER) [Toprol 25 mg PO DAILY@0800 01/29/23 09/18/23 XL] Multivitamins, Thera [Multivitamin 1 tab PO DAILY@0800 01/29/23 09/18/23 (formulary)] amLODIPine [Norvasc] 5 mg PO PC-BID@0800,1800 01/29/23 09/18/23 cloNIDine HCL 0.2 mg PO PC-SUPPER@1800 01/29/23 09/21/23 guaiFENesin [Mucinex] 600 mg PO PC-BID@0800,1800 01/29/23 09/18/23 hydrALAZINE HCL [Apresoline] 50 mg PO TID@0800,1500,2200 01/29/23 09/18/23 metFORMIN HCL ER [Glucophage XR] 500 mg PO PC-BID@0800,1800 01/29/23 09/21/23 Insulin NPH Hum/Reg Insulin Hm 15 - 20 units SQ W/SUPPER 09/18/23 09/21/23 [NovoLIN 70-30 Flexpen] Insulin NPH Hum/Reg Insulin Hm 20 units SQ W/BRKFST 09/18/23 09/21/23 [NovoLIN 70-30 Flexpen] Previous Rx's Medication Instructions Recorded Baclofen 10 mg PO TID PRN #90 tab 09/23/23 HYDROcodone/APAP 5-325MG [[place] 5] 1 each PO Q6HR PRN #28 tab 09/23/23 Sennosides-Docusate Sodium 1 each PO DAILY tab 09/23/23 [Senokot-S] Allergies Allergy/AdvReac Type Severity Reaction Status Date / Time No Known Allergies Allergy Verified 09/26/23 12:18 Review of Systems ROS Statement: Those systems with pertinent positive or pertinent negative responses have been documented in the HPI. ROS Other: All systems not noted in ROS Statement are negative. Past Medical History Past Medical History: Diabetes Mellitus, Hyperlipidemia, Hypertension, Myocardial Infarction ([place]) Additional Past Medical History / Comment(s): SEASONAL ALLERGIES. CHRONIC BACK PAIN-CAN ONLY WALK A FEET AT A TIME. N/T TO BILAT HANDS Last Myocardial Infarction Date:: 2005 History of Any Multi-Drug Resistant Organisms: None Reported Past Surgical History: Back Surgery, Bowel Resection, Heart Catheterization With Stent, Tonsillectomy Additional Past Surgical History / Comment(s): COLONOSCOPY, BOWEL RESECTION-8 INCHES REMOVED R/T POLYPS, BILAT CATARACTS REMOVED WITH LENS IMPLANTS Past Anesthesia/Blood Transfusion Reactions: No Reported Reaction Date of Last Stent Placement:: 2005 Past Psychological History: Depression Smoking Status: Former smoker Past Alcohol Use History: None Reported Past Drug Use History: None Reported - Past Family History Mother Family Medical History: No Reported History General Exam - General Exam Comments Initial Comments: GENERAL: Patient is well-developed and well-nourished. Patient is nontoxic and well- hydrated and is in no acute distress. ENT: Neck is soft and supple. No significant lymphadenopathy is noted. Oropharynx is clear. Moist mucous membranes. Patient has neck brace on so that was not examined and he has no complaints of any new pain or new symptoms about his neck EYES: The sclera were anicteric and conjunctiva were pink and moist. Extraocular movements were intact and pupils were equal round and reactive to light. Eyelids were unremarkable. PULMONARY: Unlabored respirations. Good breath sounds bilaterally. No audible rales rhonchi or wheezing was noted. CARDIOVASCULAR: Patient has no irregular heartbeat at a rate of 140 beats a minute ABDOMEN: Soft and nontender with normal bowel sounds. SKIN: Skin is clear with no lesions or rashes and otherwise unremarkable. NEUROLOGIC: Patient is alert and oriented x3. Cranial nerves II through XII are grossly intact. Motor and sensory are also intact. Normal speech, volume and content. Symmetrical smile. MUSCULOSKELETAL: Normal extremities with adequate strength and full range of motion. No lower extremity swelling or edema. No calf tenderness. LYMPHATICS: No significant lymphadenopathy is noted PSYCHIATRIC: Normal psychiatric evaluation. Limitations: no limitations Course Vital Signs 09/26/23 12:11 Temperature 97.7 F Pulse Rate 125 H Respiratory 18 Rate Blood Pressure 126/94 O2 Sat by Pulse 99 Oximetry Medical Decision Making - Medical Decision Making EKG is interpreted by myself EKG shows atrial fibrillation with rapid ve ntricular response at 134 bpm QRS is 93 QT interval 32 QTC is 361. Was pt. sent in by a medical professional or institution (, PA, SPA DIRECTOR, urgent care, hospital, or [facility]...) When possible be specific @ -Patient was sent in by the [facility] Did you speak to anyone other than the patient for history (EMS, parent, family, police, friend...)? What history was obtained from this source @ -No Did you review nursing and triage notes (agree or disagree)? Why? @ -I reviewed and agree with nursing and triage notes Were old charts reviewed (outside hosp., previous admission, EMS record, old EKG, old radiological studies, urgent care reports/EKG's, [facility] records)? Report findings @ -I reviewed prior charts from prior lab work on this patient Differential Diagnosis (chest pain, altered mental status, abdominal pain women, abdominal pain men, vaginal bleeding, weakness, fever, dyspnea, syncope, headache, dizziness, GI bleed, back pain, seizure, CVA, palpatations, mental health, musculoskeletal)? @ -Differential Palpitations Ventricular arrhythmias, atrial arrhythmias, myocardial infarction, anemia, thyrotoxicosis, electrolyte imbalance, hypokalemia, pulmonary embolism, pulmonary disease, drugs, alcohol, anxiety, stress.... This is not meant to be an all-inclusive list. EKG interpreted by me (3pts min.). @ -As above X-rays interpreted by me (1pt min.). @ -Chest x-ray shows no acute abnormality CT interpreted by me (1pt min.). @ -None done U/S interpreted by me (1pt. min.). @ -None done What testing was considered but not performed or refused? (CT, X-rays, U/S, labs)? Why? @ -None What meds were considered but not given or refused? Why? @ -None Did you discuss the management of the patient with other professionals (professionals i.e. Dr., PA, SPA DIRECTOR, lab, RT, psych nurse, social services designee, plastering contractor, teacher, protection officer, social work case manager)? Give summary @ -I spoke with Dr. Ayala and he agreed to admit the patient Was smoking cessation discussed for >3mins.? @ -No Was critical care preformed (if so, how long)? @ -35 minutes Were there social determinants of health that impacted care today? How? (Homelessness, low income, unemployed, alcoholism, drug addiction, transportation, low edu. Level, literacy, decrease access to med. care, retirement, rehab)? @ -No Was there de-escalation of care discussed even if they declined (Discuss DNR or withdrawal of care, Hospice)? DNR status @ -No What co-morbidities impacted this encounter? (DM, HTN, Smoking, COPD, CAD, Cancer, CVA, ARF, Chemo, Hep., AIDS, mental health diagnosis, sleep apnea, morbid obesity)? @ -None Was patient admitted / discharged? Hospital course, mention meds given and route, prescriptions, significant lab abnormalities, going to OR and other pertinent info. @ -Patient was started on a Cardizem drip after he received a Cardizem bolus. Patient's heart rate came down to about 100 beats minute. Patient remained asym ptomatic throughout his ED stay. Patient's troponin was elevated and will be repeated cardiology will be consulted and the patient will be admitted to Dr. Ayala Undiagnosed new problem with uncertain prognosis? @ -No Drug Therapy requiring intensive monitoring for toxicity (Heparin, Nitro, Insulin, Cardizem)? @ -No Were any procedures done? @ -No Diagnosis/symptom? @ -Atrial fibrillation with rapid ventricular response Acute, or Chronic, or Acute on Chronic? @ -Acute Uncomplicated (without systemic symptoms) or Complicated (systemic symptoms)? @ -Complicated Side effects of treatment? @ -No Exacerbation, Progression, or Severe Exacerbation? @ -No Poses a threat to life or bodily function? How? (Chest pain, [place], [place], pneumonia, PE, COPD, DKA, ARF, appy, cholecystitis, CVA, Diverticulitis, Homicidal, Suicidal, threat to staff... and all critical care pts) @ -Yes this could lead to significant decrease in perfusion and end organ dysfunction - Lab Data Result diagrams: 09/26/23 12:29 09/26/23 12:29 Lab Results 09/26/23 09/26/23 09/26/23 Range/Units 12:29 12: 12: WBC 12.5 H (3.8-10.6) k/uL RBC 5.51 (4.30-5.90) m/uL Hgb 16.4 (13.0-17.5) gm/dL Hct 48.9 (39.0-53.0) % MCV 88.7 (80.0-100.0) fL MCH 29.7 (25.0-35.0) pg MCHC 33.5 (31.0-37.0) g/dL RDW 13.1 (11.5-15.5) % Plt Count 290 (150-450) k/uL MPV 8.3 Neutrophils % 70 % Lymphocytes % 20 % Monocytes % 8 % Eosinophils % 1 % Basophils % 0 % Neutrophils # 8.7 H (1.3-7.7) k/uL Lymphocytes # 2.5 (1.0-4.8) k/uL Monocytes # 1.0 (0-1.0) k/uL Eosinophils # 0.1 (0-0.7) k/uL Basophils # 0.0 (0-0.2) k/uL PT 10.5 (10.0-12.5) sec INR 0.9 (<1.2) APTT 22.8 (22.0-30.0) sec Sodium 134 L (137-145) mmol/L Potassium 4.3 (3.5-5.1) mmol/L Chloride 104 (98-107) mmol/L Carbon Dioxide 24 (22-30) mmol/L Anion Gap 6 mmol/L BUN 36 H (9-20) mg/dL Creatinine 0.82 (0.66-1.25) mg/dL Est GFR (CKD-EPI)AfAm >90 (>60 ml/min/1.73 sqM) Est GFR (CKD-EPI)NonAf 84 (>60 ml/min/1.73 sqM) Glucose 278 H (74-99) mg/dL Calcium 9.1 (8.4-10.2) mg/dL Magnesium 2.2 (1.6-2.3) mg/dL Total Bilirubin 0.8 (0.2-1.3) mg/dL AST 32 (17-59) U/L ALT 30 (4-49) U/L Alkaline Phosphatase 120 (38-126) U/L Troponin I (0.000-0.034) ng/mL Total Protein 6.3 (6.3-8.2) g/dL Albumin 3.8 (3.5-5.0) g/dL TSH 2.470 (0.465-4.680) mIU/L 09/26/23 Range/Units 12:29 WBC (3.8-10.6) k/uL RBC (4.30-5.90) m/uL Hgb (13.0-17.5) gm/dL Hct (39.0-53.0) % MCV (80.0-100.0) fL MCH (25.0-35.0) pg MCHC (31.0-37.0) g/dL RDW (11.5-15.5) % Plt Count (150-450) k/uL MPV Neutrophils % % Lymphocytes % % Monocytes % % Eosinophils % % Basophils % % Neutrophils # (1.3-7.7) k/uL Lymphocytes # (1.0-4.8) k/uL Monocytes # (0-1.0) k/uL Eosinophils # (0-0.7) k/uL Basophils # (0-0.2) k/uL PT (10.0-12.5) sec INR (<1.2) APTT (22.0-30.0) sec Sodium (137-145) mmol/L Potassium (3.5-5.1) mmol/L Chloride (98-107) mmol/L Carbon Dioxide (22-30) mmol/L Anion Gap mmol/L BUN (9-20) mg/dL Creatinine (0.66-1.25) mg/dL Est GFR (CKD-EPI)AfAm (>60 ml/min/1.73 sqM) Est GFR (CKD-EPI)NonAf (>60 ml/min/1.73 sqM) Glucose (74-99) mg/dL Calcium (8.4-10.2) mg/dL Magnesium (1.6-2.3) mg/dL Total Bilirubin (0.2-1.3) mg/dL AST (17-59) U/L ALT (4-49) U/L Alkaline Phosphatase (38-126) U/L Troponin I 0.105 H* (0.000-0.034) ng/mL Total Protein (6.3-8.2) g/dL Albumin (3.5-5.0) g/dL TSH (0.465-4.680) mIU/L Disposition Clinical Impression: Atrial fibrillation with rapid ventricular response, Elevated troponin Disposition: ADMITTED IP TO THIS HOSP Referrals: Darin Kelley MD [STAFF PHYSICIAN] - 1-2 days Time of Disposition: 14:14
[2023-09-26] MEDS: DILTIAZEM 125 MG in SODIUM CHLORIDE 0.9% 100 ML IV SCH (12:41)
[2023-09-26 12:55] LABS: INR 0.9 (<1.2); Partial Thromboplastin Time 22.8 sec (22.0-30.0); Prothrombin Time 10.5 sec (10.0-12.5)
[2023-09-26 13:01] LABS: Basophils % (A) 0 %; Eosinophils # (A) 0.1 k/uL (0-0.7); Eosinophils % (A) 1 %; HCT 48.9 % (39.0-53.0); HGB 16.4 gm/dL (13.0-17.5); Lymphocytes # (A) 2.5 k/uL (1.0-4.8); Lymphocytes % (A) 20 %; MCH 29.7 pg (25.0-35.0); MCHC 33.5 g/dL (31.0-37.0); MCV 88.7 fL (80.0-100.0); Mean Platelet Volume 8.3; Monocytes % (A) 8 %; Neutrophils # (A) 8.7 k/uL (1.3-7.7); Neutrophils % (A) 70 %; Platelet Count 290 k/uL (150-450); RBC 5.51 m/uL (4.30-5.90); RDW 13.1 % (11.5-15.5); WBC 12.5 k/uL (3.8-10.6)
--- NOTE | 2023-09-26 13:06 | XR ---
EXAMINATION TYPE: XR chest 2V DATE OF EXAM: 09/26/2023 COMPARISON: 08/13/2023 HISTORY: Dysrhythmia TECHNIQUE: Frontal and lateral views of the chest are obtained. FINDINGS: There is no focal air space opacity, pleural effusion, or pneumothorax seen. The cardiac silhouette size is within normal limits. The osseous structures are intact. IMPRESSION: No acute cardiopulmonary process.
[2023-09-26 13:18] LABS: ALT 30 U/L (4-49); African American GFR (CKD) >90 (>60 ml/min/1.73 sqM); Albumin 3.8 g/dL (3.5-5.0); Anion Gap 6 mmol/L; Blood Urea Nitrogen 36 mg/dL (9-20); Calcium 9.1 mg/dL (8.4-10.2); Carbon Dioxide 24 mmol/L (22-30); Chloride 104 mmol/L (98-107); Glucose 278 mg/dL (74-99); Non-African American GFR(CKD) 84 (>60 ml/min/1.73 sqM); Sodium 134 mmol/L (137-145); Total Bilirubin 0.8 mg/dL (0.2-1.3); Total Protein 6.3 g/dL (6.3-8.2)
[2023-09-26 13:45] LABS: Potassium 4.3 mmol/L (3.5-5.1)
[2023-09-26 13:46] LABS: AST 32 U/L (17-59); Alkaline Phosphatase 120 U/L (38-126); Magnesium 2.2 mg/dL (1.6-2.3)
[2023-09-26] MEDS ORDERED: NITROGLYCERIN SL TABS 0.4 MG TAB SUBLINGUAL PRN (14:15)
[2023-09-26] MEDS ORDERED: BACLOFEN 10 MG TAB PO PRN (15:48)
[2023-09-26] MEDS ORDERED: cloNIDine HCL 0.2 MG TAB PO SCH (16:00)
--- NOTE | 2023-09-26 17:17 | P.HPIM ---
History of Present Illness H&P Date: 09/26/23 Chief Complaint: Palpitation with the new onset of atrial fibrillation with RVR never had it History and physical continue. Patient presented to the emergency room with the palpitation feeling weak from the troponin is elevated Dr. Cabrera ER physician called me to admit the patient with a consultation to the cardiology. Patient was discharged yesterday afternoon to [facility] on the [facility] for rehabilitation. The attending spine orthopedic and his PA Bharat. Patient at the time of discharge seen by myself, and he was controlled heart rate no chest pain, diabetes mellitus was controlled and the blood pressure was controlled. Patient arrived at the [facility] after 2 PM on 09/25/2023 and he wasn't seen and he did not have his medication to be continued as ordered This morning seen by physician who found that he had atrial fibrillation and send the patient to the emergency room at [facility] with the underlying atrial fib with rapid ventricular response. In the ER seen by Dr. Cabrera and found that his heart rate uncontrolled 134 or more, laboratory indicating elevated troponin, and troponin was 0.105 at that time they called the cardiology and they called me as well to admit the patient. At the time of admission his temperature 97.7 F oral and the EKG was 1 34 bpm and heart rate between 120 01/05/1937 and fluctuating interop 1 50 bpm Patient denied any chest pain but he feels a palpitation and was symptomatic was feeling dizzy his oxygen 99% on room air and respiratory rate 18/m and chest x- ray was negative done in the ER. Past medical history #1 status post anterior approach on the right side for cervical stenosis and myelopathy with the repair and right #2 pulse surgery swelling of the oropharynx with the dysfunction of the epiglottis. The speech pathology and need this patient diet #3 diabetes mellitus type 2 on insulin and oral hypoglycemic agent and he had at the [facility] episode of hypoglycemia. With the use of 70/30 and not eating appropriately #4 history of hypertension with hypertensive heart disease. And questionable [place] in the past. #5 rn occupational health is Dr. ANSLEY Martinez rn occupational health. #6 hyperlipidemia. #7 history of colonoscopy in the past Review of system: # cardiovascular: Palpitation with elevated troponin however no chest pain #2 endocrine diabetes mellitus type 2 fluctuating #3 history of hypertension controlled #4 musculoskeletal, history of recent cervical spinal stenosis and status post s urgery and discharged yesterday on 09/25/2022. #5 dysphagia due to postoperative complication. Rest of review of system noncontributory ALLERGY unknown. Physical exam: Vital sign temperature 97.4 F oral, heart rate [id number] or more Blood pressure 126/94 Oxygen saturation 99%. Patient is conscious alert oriented 3 able to communicate with his daughter who was present at the time of exam in module 6 in the emergency room. Patient able to express his concern and feeling and the palpitation and difficulty with swallowing Head was normocephalic atraumatic, pupils equal reactive, conjunctiva was pink sclera was nonicteric, extraocular muscle movement intact Oropharynx he had dentures upper and lower and he wearing neck brace Neck wearing neck brace some discomfort with it Chest: Normal breath sounds, no wheezes no rhonchi's, chest x-ray was normal Heart atrial fibrillation, irregular rhythm with rapid ventricular response currently on cardiac exam with the cardiology consult who did see him. Abdomen: Soft positive bowel sounds no tenderness Extremities positive pulses bilateral and symmetrical normal movement trace edema however he stated that yesterday he was swelling he did not have his compression stocking Psychiatry stable Neurologically: No lateralizing sign and no neuro deficit. Assessment: Acute onset of atrial fibrillation with no previous history of similar episodes #2 elevated troponin first reading, and to follow #3 diabetes mellitus type 2 #4 history of hypertension with hypertensive heart disease #5 status post surgical repair for cervical spine stenosis with fusion and dry. Plan: #1 continue with the recommendation of the cardiology #2 obtain echocardiogram if the cardiology order it #3 adjust the insulin with the use of NovoLog insulin to scale initially, and was holding the 7030 and starting hypoglycemic episode protocol. #4 follow the cardiology recommendation. Past Medical History Past Medical History: Diabetes Mellitus, Hyperlipidemia, Hypertension, Myocardial Infarction ([place]) Additional Past Medical History / Comment(s): SEASONAL ALLERGIES. CHRONIC BACK PAIN-CAN ONLY WALK A FEET AT A TIME. N/T TO BILAT HANDS Last Myocardial Infarction Date:: 2005 History of Any Multi-Drug Resistant Organisms: None Reported Past Surgical History: Back Surgery, Bowel Resection, Heart Catheterization With Stent, Tonsillectomy Additional Past Surgical History / Comment(s): COLONOSCOPY, BOWEL RESECTION-8 INCHES REMOVED R/T POLYPS, BILAT CATARACTS REMOVED WITH LENS IMPLANTS Past Anesthesia/Blood Transfusion Reactions: No Reported Reaction Date of Last Stent Placement:: 2005 Past Psychological History: Depression Smoking Status: Former smoker Past Alcohol Use History: None Reported Past Drug Use History: None Reported - Past Family History Mother Family Medical History: No Reported History Medications and Allergies Home Medications Medication Instructions Recorded Confirmed Type Aspirin EC [Ecotrin Low Dose] 81 mg PO DAILY 01/29/23 09/26/23 History Empagliflozin [Jardiance] 25 mg PO DAILY 01/29/23 09/26/23 History Metoprolol Succinate (ER) [Toprol 25 mg PO DAILY 01/29/23 09/26/23 History XL] Multivitamins, Thera [Multivitamin 1 tab PO DAILY 01/29/23 09/26/23 History (formulary)] amLODIPine [Norvasc] 5 mg PO BID 01/29/23 09/26/23 History cloNIDine HCL 0.2 mg PO DAILY 01/29/23 09/26/23 History guaiFENesin [Mucinex] 600 mg PO BID 01/29/23 09/26/23 History hydrALAZINE HCL [Apresoline] 50 mg PO TID 01/29/23 09/26/23 History metFORMIN HCL ER [Glucophage XR] 500 mg PO BID 01/29/23 09/26/23 History Insulin NPH Hum/Reg Insulin Hm 20 units SQ W/BRKFST 09/18/23 09/26/23 History [NovoLIN 70-30 Flexpen] Insulin NPH Hum/Reg Insulin Hm 24 units SQ W/SUPPER 09/18/23 09/26/23 History [NovoLIN 70-30 Flexpen] Baclofen 10 mg PO TID PRN #90 tab 09/23/23 09/26/23 Rx Atorvastatin [Lipitor] 40 mg PO DAILY 09/26/23 09/26/23 History HYDROcodone/APAP 5-325MG [[place] 5] 1 tab PO Q6HR PRN 09/26/23 09/26/23 History Losartan Potassium 100 mg PO DAILY 09/26/23 09/26/23 History Sennosides-Docusate Sodium 1 tab PO DAILY 09/26/23 09/26/23 History [Senokot-S] Allergies Allergy/AdvReac Type Severity Reaction Status Date / Time No Known Allergies Allergy Verified 09/26/23 12:18 Physical Exam Vitals: Vital Signs Temp Pulse Resp BP Pulse Ox 09/26/23 15:00 88 18 148/85 98 09/26/23 14:18 110 H 18 138/100 98 09/26/23 12:11 97.7 F 125 H 18 126/94 99 Intake and Output 09/26/23 09/26/23 09/26/23 06:59 14:59 22:59 Other: Weight 74.843 kg Results CBC & Chem 7: 09/26/23 12:29 09/26/23 12:29 Labs: Abnormal Lab Results - Last 24 Hours (Table) 09/26/23 09/26/23 09/26/23 Range/Units 12:29 12:29 12:29 WBC 12.5 H (3.8-10.6) k/uL Neutrophils # 8.7 H (1.3-7.7) k/uL Sodium 134 L (137-145) mmol/L BUN 36 H (9-20) mg/dL Glucose 278 H (74-99) mg/dL Troponin I 0.105 H* (0.000-0.034) ng/mL
[2023-09-26] MEDS: cloNIDine HCL 0.1 MG TAB PO SCH ×2 (18:29→20:25)
[2023-09-26] MEDS: ATORVASTATIN 40 MG TAB PO SCH (18:29)
[2023-09-26] MEDS: INSULIN ASPART (NovoLOG) 100 UNIT/ML VIAL SQ SCH ×2 (18:40→20:28)
[2023-09-26 19:59] LABS: Glucose,Whole Blood 237 mg/dL (70-110)
[2023-09-26] MEDS: metFORMIN 500 MG TAB PO SCH (20:06)
[2023-09-26] MEDS: METOPROLOL TARTRATE 50 MG TAB PO SCH (20:28)
[2023-09-26] MEDS: amLODIPine 5 MG TAB PO SCH (20:28)
[2023-09-26] MEDS: guaiFENesin 600 MG TABLET.ER PO SCH (20:28)
--- NOTE | 2023-09-26 20:46 | P.CRDCN ---
History of Present Illness Consult date: 09/26/23 History of present illness: HISTORY OF PRESENTING ILLNESS 78-year-old with a recent cervical spine surgery presented because of palpitations feeling weak. On admission he was found to have atrial fibrillation with rapid ventricular response. Patient has a prior history of CAD status post PCI he also has history of hypertension dyslipidemia. He is known to Dr. Martinez. Her troponin elevation of 0.1, 0.1. Hemoglobin 16, normal kidney function REVIEW OF SYSTEMS 14 point review of system is negative except what is mentioned above in HPI. PHYSICAL EXAMINATION Vital signs reviewed. Neck: Neck immobilizer in place Lungs: Reduced air entry in bilateral lower lung camraena Heart: Regular rate and rhythm, S1-S2, no S3, no murmur or rub. Abdomen: Soft nontender, . Extremities: No edema. Neuro: Alert, oritented, ASSESSMENT Mild elevation of troponin with a flat pattern likely due to atrial fibrillation New-onset atrial fibrillation with RVR. [id number] score 4. Currently in NSR Recent cervical spine surgery Prior history of CAD Type II Diabetes Dyslipidemia PLAN Await orthopedics recommendation on systemic anticoagulation after the cervical spine surgery. Once cleared by surgery will start him on oral anticoagulation Echocardiogram Continue metoprolol 50 g twice a day. Discontinue Cardizem drip Past Medical History Past Medical History: Diabetes Mellitus, Hyperlipidemia, Hypertension, Myocardial Infarction ([place]) Additional Past Medical History / Comment(s): SEASONAL ALLERGIES. CHRONIC BACK PAIN-CAN ONLY WALK A FEET AT A TIME. N/T TO BILAT HANDS Last Myocardial Infarction Date:: 2005 History of Any Multi-Drug Resistant Organisms: None Reported Past Surgical History: Back Surgery, Bowel Resection, Heart Catheterization With Stent, Tonsillectomy Additional Past Surgical History / Comment(s): COLONOSCOPY, BOWEL RESECTION-8 INCHES REMOVED R/T POLYPS, BILAT CATARACTS REMOVED WITH LENS IMPLANTS Past Anesthesia/Blood Transfusion Reactions: No Reported Reaction Date of Last Stent Placement:: 2005 Past Psychological History: Depression Additional Psychological History / Comment(s): NO CURRENTLY TAKING PRESCRIBLED MEDS Smoking Status: Former smoker Past Alcohol Use History: None Reported Additional Past Alcohol Use History / Comment(s): QUIT SMOKING 1 MONTH AGO- SMOKED 1/2 PPD FOR PAST 3 YEARS, HAD QUIT FOR SOMETIME THEN SPOUSE PASSED 5 YEARS AGO Past Drug Use History: None Reported - Past Family History Mother Family Medical History: No Reported History Medications and Allergies Home Medications Medication Instructions Recorded Confirmed Type Aspirin EC [Ecotrin Low Dose] 81 mg PO DAILY 01/29/23 09/26/23 History Empagliflozin [Jardiance] 25 mg PO DAILY 01/29/23 09/26/23 History Metoprolol Succinate (ER) [Toprol 25 mg PO DAILY 01/29/23 09/26/23 History XL] Multivitamins, Thera [Multivitamin 1 tab PO DAILY 01/29/23 09/26/23 History (formulary)] amLODIPine [Norvasc] 5 mg PO BID 01/29/23 09/26/23 History cloNIDine HCL 0.2 mg PO DAILY 01/29/23 09/26/23 History guaiFENesin [Mucinex] 600 mg PO BID 01/29/23 09/26/23 History hydrALAZINE HCL [Apresoline] 50 mg PO TID 01/29/23 09/26/23 History metFORMIN HCL ER [Glucophage XR] 500 mg PO BID 01/29/23 09/26/23 History Insulin NPH Hum/Reg Insulin Hm 20 units SQ W/BRKFST 09/18/23 09/26/23 History [NovoLIN 70-30 Flexpen] Insulin NPH Hum/Reg Insulin Hm 24 units SQ W/SUPPER 09/18/23 09/26/23 History [NovoLIN 70-30 Flexpen] Baclofen 10 mg PO TID PRN #90 tab 09/23/23 09/26/23 Rx Atorvastatin [Lipitor] 40 mg PO DAILY 09/26/23 09/26/23 History HYDROcodone/APAP 5-325MG [[place] 5] 1 tab PO Q6HR PRN 09/26/23 09/26/23 History Losartan Potassium 100 mg PO DAILY 09/26/23 09/26/23 History Sennosides-Docusate Sodium 1 tab PO DAILY 09/26/23 09/26/23 History [Senokot-S] Allergies Allergy/AdvReac Type Severity Reaction Status Date / Time No Known Allergies Allergy Verified 09/26/23 12:18 Physical Exam Vitals: Vital Signs Temp Pulse Pulse Resp BP BP Pulse Ox 09/26/23 20:00 100 18 150/73 96 09/26/23 18:50 102 H 18 141/70 98 09/26/23 18:35 98.9 F 128 H 20 127/86 98 09/26/23 15:00 88 18 148/85 98 09/26/23 14:18 110 H 18 138/100 98 09/26/23 12:11 97.7 F 125 H 18 126/94 99 Intake and Output 09/26/23 09/26/23 09/26/23 06:59 14:59 22:59 Other: Weight 74.843 kg 74.843 kg Results 09/26/23 12:29 09/26/23 12:29 Cardiac Enzymes 09/26/23 09/26/23 09/26/23 Range/Units 12:29 12:29 16:22 AST 32 (17-59) U/L Troponin I 0.105 H* 0.104 H* (0.000-0.034) ng/mL Coagulation 09/26/23 Range/Units 12:29 PT 10.5 (10.0-12.5) sec APTT 22.8 (22.0-30.0) sec CBC 09/26/23 Range/Units 12:29 WBC 12.5 H (3.8-10.6) k/uL RBC 5.51 (4.30-5.90) m/uL Hgb 16.4 (13.0-17.5) gm/dL Hct 48.9 (39.0-53.0) % Plt Count 290 (150-450) k/uL Comprehensive Metabolic Panel 09/26/23 Range/Units 12:29 Sodium 134 L (137-145) mmol/L Potassium 4.3 (3.5-5.1) mmol/L Chloride 104 (98-107) mmol/L Carbon Dioxide 24 (22-30) mmol/L BUN 36 H (9-20) mg/dL Creatinine 0.82 (0.66-1.25) mg/dL Glucose 278 H (74-99) mg/dL Calcium 9.1 (8.4-10.2) mg/dL AST 32 (17-59) U/L ALT 30 (4-49) U/L Alkaline Phosphatase 120 (38-126) U/L Total Protein 6.3 (6.3-8.2) g/dL Albumin 3.8 (3.5-5.0) g/dL Current Medications Generic Name Dose Route Start Last Admin Trade Name Freq PRN Reason Stop Dose Admin Hydrocodone Bitart/Acetaminophen 1 each 09/26/23 15:48 Hydrocodone/Apap 5-325mg 1 Each Tab PO Q6HR PRN Pain Amlodipine Besylate 5 mg 09/26/23 21:00 09/26/23 20:28 Amlodipine 5 Mg Tab PO 5 mg BID [facility] Administration Aspirin 81 mg 09/27/23 09:00 Aspirin 81 Mg PO DAILY [facility] Atorvastatin Calcium 40 mg 09/26/23 16:00 09/26/23 18:29 Atorvastatin 40 Mg Tab PO 40 mg DAILY NELLY Administration Baclofen 10 mg 09/26/23 15:48 09/26/23 20:28 Baclofen 10 Mg Tab PO 10 mg TID PRN Administration Spasms Clonidine 0.1 mg 09/26/23 21:00 09/26/23 20:25 Clonidine Hcl 0.1 Mg Tab PO Not Given HS [facility] Dapagliflozin 10 mg 09/27/23 09:00 Dapagliflozin Propanediol 10 Mg Tablet PO DAILY [facility] Guaifenesin 600 mg 09/26/23 21:00 09/26/23 20:28 Guaifenesin 600 Mg Tablet.Er PO 600 mg BID [facility] Administration Diltiazem HCl 125 mg/ Sodium 125 mls @ 5 mls/hr 09/26/23 12:30 09/26/23 12:41 Chloride IV 5 mg/hr .Q24H NELLY 5 mls/hr Administration 5 MG/HR Insulin Aspart 10 - 18 unit 09/26/23 17:30 09/26/23 20:28 Insulin Aspart (Novolog) 100 Unit/Ml Vial SQ 6 unit ACHS NELLY Administration Protocol Losartan Potassium 50 mg 09/27/23 09:00 Losartan 50 Mg Tab PO DAILY [facility] Metformin HCl 500 mg 09/26/23 21:00 09/26/23 20:06 Metformin 500 Mg Tab PO Not Given BID [facility] Metoprolol Tartrate 50 mg 09/26/23 21:00 09/26/23 20:28 Metoprolol Tartrate 50 Mg Tab PO 50 mg BID [facility] Administration Multivitamins 1 each 09/27/23 09:00 Multivitamins, Thera 1 Each Tab PO DAILY [facility] Nitroglycerin 0.4 mg 09/26/23 14:15 Nitroglycerin Sl Tabs 0.4 Mg Tab SUBLINGUAL Q5M PRN Chest Pain Senna/Docusate Sodium 1 each 09/27/23 09:00 Sennosides-Docusate Sodium 1 Each Tab PO DAILY NELLY Intake and Output 09/26/23 09/26/23 09/26/23 06:59 14:59 22:59 Other: Weight 74.843 kg 74.843 kg Patient Weight 09/27/23 06:59 Weight 74.843 kg 09/26/23 12:29 09/26/23 12:29
[2023-09-26] MEDS: HYDROcodone/APAP 5-325MG 1 EACH TAB PO PRN (21:23)
[2023-09-27 06:17] LABS: Glucose,Whole Blood 158 mg/dL (70-110)
[2023-09-27] MEDS: INSULIN ASPART (NovoLOG) 100 UNIT/ML VIAL SQ SCH ×4 (06:25→20:32)
[2023-09-27] MEDS: ASPIRIN 81 MG PO SCH (07:33)
[2023-09-27] MEDS: MULTIVITAMINS, THERA 1 EACH TAB PO SCH (07:33)
[2023-09-27] MEDS: SENNOSIDES-DOCUSATE SODIUM 1 EACH TAB PO SCH (07:33)
[2023-09-27] MEDS: guaiFENesin 600 MG TABLET.ER PO SCH ×2 (07:33→20:31)
[2023-09-27] MEDS: ATORVASTATIN 40 MG TAB PO SCH (07:33)
[2023-09-27] MEDS: metFORMIN 500 MG TAB PO SCH ×2 (07:33→20:31)
[2023-09-27] MEDS: amLODIPine 5 MG TAB PO SCH ×2 (07:33→20:31)
[2023-09-27] MEDS: METOPROLOL TARTRATE 50 MG TAB PO SCH ×2 (07:33→20:31)
[2023-09-27] MEDS: LOSARTAN 50 MG TAB PO SCH (07:33)
[2023-09-27] MEDS: DAPAGLIFLOZIN PROPANEDIOL 10 MG TABLET PO SCH (07:33)
[2023-09-27] MEDS: DILTIAZEM 125 MG in SODIUM CHLORIDE 0.9% 100 ML IV SCH (08:14)
[2023-09-27] MEDS ORDERED: ASPIRIN 325 MG TAB PO SCH (09:00)
[2023-09-27 09:30] LABS: Chol/HDL Ratio 2.84 Ratio; LDL Cholesterol,Calculated 58.9 mg/dL (0.0-131.0)
[2023-09-27] MEDS ORDERED: ENALAPRILAT 1.25 MG/ML 1 ML VIAL IVP PRN (10:53)
[2023-09-27 11:46] LABS: Glucose,Whole Blood 256 mg/dL (70-110)
--- NOTE | 2023-09-27 11:54 | P.CNOR ---
History of Present Illness - [facility] Consult date: 09/27/23 Requesting physician: Silver Ayala Consult reason: other (Status post cervical fusion; clearance for anticoagulatio n use) History of present illness: Patient is a very pleasant 78-year-old male well known to our service was seen and examined at bedside for further evaluation of his cervical spine. Patient is known to have cervical myelopathy, cervical myelomalacia, C3-4, C4-5, and C5-6 severe cervical stenosis, cervical degenerative disc disease, upper extremity weakness with radiculopathy, cervical pain, and difficulty with ambulation who failed outpatient conservative therapy. He was admitted for a C3-4, C4-5, and C5-6 anterior cervical decompression and fusion performed on 09/21/2023. The patient tolerated the procedure but has been recovering slowly postoperatively. He does continue to have difficulty with mobilization due to his cervical myelomalacia and cervical myelopathy. Clinically, patient looks dramatically better the bedside today as compared to his discharge date on 09/25/2023. He is sitting upright at the bedside. He has good range of motion of his upper extremities. He states his pain is well- controlled and he feels much better. He was also having significant difficulty with swallowing postoperatively. He failed a swallow study test as well as modified barium swallow study. He was cleared for discharge by medicine to [facility] on 09/25/2023 with modified diet. He does feel his eating and swallowing has had some improvement but he does continue to have difficulty. He continues to utilize a soft cervical collar while sleeping and lying in bed. He continues with his hard cervical collar when upright and with activities. His hard collar is currently intact at the bedside. Patient was brought back to [facility] from [facility] as he was experiencing irregular heartbeat with a racing heart. He was found to have elevated troponin levels. Through further evaluation, he was found to have atrial fibrillation with RVR. He has been seen by cardiology. Cardiology is requesting clearance postoperatively from an orthopedic spine standpoint to add heparin and other anticoagulation medication. Patient is admitted to medicine and continues to be seen and examined for his multiple medical diagnoses. Past Medical History Past Medical History: Diabetes Mellitus, Hyperlipidemia, Hypertension, Myocardial Infarction ([place]) Additional Past Medical History / Comment(s): SEASONAL ALLERGIES. CHRONIC BACK PAIN-CAN ONLY WALK A FEET AT A TIME. N/T TO BILAT HANDS Last Myocardial Infarction Date:: 2005 History of Any Multi-Drug Resistant Organisms: None Reported Past Surgical History: Back Surgery, Bowel Resection, Heart Catheterization With Stent, Tonsillectomy Additional Past Surgical History / Comment(s): COLONOSCOPY, BOWEL RESECTION-8 INCHES REMOVED R/T POLYPS, BILAT CATARACTS REMOVED WITH LENS IMPLANTS Past Anesthesia/Blood Transfusion Reactions: No Reported Reaction Date of Last Stent Placement:: 2005 Past Psychological History: Depression Additional Psychological History / Comment(s): NO CURRENTLY TAKING PRESCRIBLED MEDS Smoking Status: Former smoker Past Alcohol Use History: None Reported Additional Past Alcohol Use History / Comment(s): QUIT SMOKING 1 MONTH AGO- SMOKED 1/2 PPD FOR PAST 3 YEARS, HAD QUIT FOR SOMETIME THEN SPOUSE PASSED 5 YEARS AGO Past Drug Use History: None Reported - Past Family History Mother Family Medical History: No Reported History Medications and Allergies Home Medications Medication Instructions Recorded Confirmed Type Aspirin EC [Ecotrin Low Dose] 81 mg PO DAILY 01/29/23 09/26/23 History Empagliflozin [Jardiance] 25 mg PO DAILY 01/29/23 09/26/23 History Metoprolol Succinate (ER) [Toprol 25 mg PO DAILY 01/29/23 09/26/23 History XL] Multivitamins, Thera [Multivitamin 1 tab PO DAILY 01/29/23 09/26/23 History (formulary)] amLODIPine [Norvasc] 5 mg PO BID 01/29/23 09/26/23 History cloNIDine HCL 0.2 mg PO DAILY 01/29/23 09/26/23 History guaiFENesin [Mucinex] 600 mg PO BID 01/29/23 09/26/23 History hydrALAZINE HCL [Apresoline] 50 mg PO TID 01/29/23 09/26/23 History metFORMIN HCL ER [Glucophage XR] 500 mg PO BID 01/29/23 09/26/23 History Insulin NPH Hum/Reg Insulin Hm 20 units SQ W/BRKFST 09/18/23 09/26/23 History [NovoLIN 70-30 Flexpen] Insulin NPH Hum/Reg Insulin Hm 24 units SQ W/SUPPER 09/18/23 09/26/23 History [NovoLIN 70-30 Flexpen] Baclofen 10 mg PO TID PRN #90 tab 09/23/23 09/26/23 Rx Atorvastatin [Lipitor] 40 mg PO DAILY 09/26/23 09/26/23 History HYDROcodone/APAP 5-325MG [[place] 5] 1 tab PO Q6HR PRN 09/26/23 09/26/23 History Losartan Potassium 100 mg PO DAILY 09/26/23 09/26/23 History Sennosides-Docusate Sodium 1 tab PO DAILY 09/26/23 09/26/23 History [Senokot-S] Allergies Allergy/AdvReac Type Severity Reaction Status Date / Time No Known Allergies Allergy Verified 09/26/23 12:18 Physical Examination Physical Exam: Patient is awake, alert, and oriented 3 Vital signs stable Good chest excursion with deep inspiration and expiration Adequate range of motion of the cervical spine with adequate flexion, extension, and bilateral rotation [employer] strength, thumb strength, interosseous strength, biceps strength, triceps strength, and shoulder strength positive sustained bilaterally Patient is able to perform active range of motion of the bilateral upper extremities against resistance without significant difficulty Hard cervical collar intact Incision is clean, dry, and intact; no erythema, purulence, or signs of infection No active drainage from the surgical incision site Mild generalized swelling around the anterior cervical spine without obvious fluid collection Optifoam dressing intact; dressing is removed at the bedside Results - Labs Labs: Abnormal Lab Results - Last 24 Hours (Table) 09/26/23 09/26/23 09/26/23 Range/Units 12:29 12:29 12:29 WBC 12.5 H (3.8-10.6) k/uL Neutrophils # 8.7 H (1.3-7.7) k/uL Sodium 134 L (137-145) mmol/L BUN 36 H (9-20) mg/dL Glucose 278 H (74-99) mg/dL POC Glucose (mg/dL) (70-110) mg/dL Troponin I 0.105 H* (0.000-0.034) ng/mL Triglycerides (0.00-149.00) mg/dL VLDL Cholesterol, Calc (5.00-40.00) mg/dL 09/26/23 09/26/23 09/26/23 Range/Units 12:29 16:22 19:12 WBC (3.8-10.6) k/uL Neutrophils # (1.3-7.7) k/uL Sodium (137-145) mmol/L BUN (9-20) mg/dL Glucose (74-99) mg/dL POC Glucose (mg/dL) (70-110) mg/dL Troponin I 0.104 H* 0.100 H* (0.000-0.034) ng/mL Triglycerides 201.00 H (0.00-149.00) mg/dL VLDL Cholesterol, Calc 40.20 H (5.00-40.00) mg/dL 09/26/23 09/27/23 Range/Units 19:54 06:14 WBC (3.8-10.6) k/uL Neutrophils # (1.3-7.7) k/uL Sodium (137-145) mmol/L BUN (9-20) mg/dL Glucose (74-99) mg/dL POC Glucose (mg/dL) 237 H 158 H (70-110) mg/dL Troponin I (0.000-0.034) ng/mL Triglycerides (0.00-149.00) mg/dL VLDL Cholesterol, Calc (5.00-40.00) mg/dL H & H 09/26/23 Range/Units 12:29 Hgb 16.4 (13.0-17.5) gm/dL Hct 48.9 (39.0-53.0) % Coagulation 09/26/23 Range/Units 12:29 INR 0.9 (<1.2) Result Diagrams: 09/26/23 12:29 09/26/23 12:29 Assessment and Plan Assessment: Assessment: Status post C3-4, C4-5, and C5-6 anterior cervical decompression and fusion Cervical pain Cervical myelomalacia Cervical myelopathy Cervical degenerative disc disease Upper extremity weakness with radiculopathy Difficulty ambulation Failed barium swallow study test Diabetes mellitus Hypertension Atrial fibrillation with RVR Elevated troponin Plan: Plan: 1. Patient has been discussed in detail with Dr. Osbaldo Blanco. Cardiology would like to start the patient on heparin and anticoagulation following atrial fib rillation with RVR. Patient is clear for anticoagulation use per recommendations by cardiology. Patient may proceed forward with anticoagulation as necessary. 2. Surgical dressing has been removed at the bedside. Patient may shower without a Optifoam dressing intact. 3. Patient should refrain from driving until at least after their first follow- up appointment in the office. 4. Patient should avoid excessive neck flexion, extension, rotation, and lateral sidebending; no overhead lifting; no lifting greater than 10 pounds. 5. Continue medications as prescribed as needed for pain control. 6. Patient is encouraged to work with physical therapy increase his mobility and ambulation; Patient should utilize walker or other eat as needed to aid in ambulate 7. Patient will continue with dietary restrictions as set forth by medicine following his failed. Swallow study 8. Patient must continue a hard cervical collar during the day while sitting upright and with increased activities. He may wear a soft cervical collar while lying in bed and sleeping. 9. From an orthopedic spine standpoint, patient is cleared for discharge once cleared by multiple other medical providers. Patient may follow-up with Jesus Manuel Lang PA-C or Dr. Osbaldo Blanco at [facility] is currently scheduled on 10/06/2023 at 10:50 AM following discharge. Time with Patient: Greater than 30 (Including obtaining history, physical examination, reviewing of imaging, and dictation.)
--- NOTE | 2023-09-27 11:55 | P.PN ---
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 #4 hypertension with hypertensive heart disease #5 history of underlying previous FL, coronary artery disease, atherosclerotic heart disease #6 history of balloon angioplasty #[address] ANSLEY Martinez bottom cager #8 status post cervical spine surgery with cervical stenosis and myelopathy anterior approach with the placement of right #9 hyper lipidemia #10 no chest pain, however patient is diabetic2 under care of Dr. Davis laboratory chemical assistant. Progress note Date of service 09/27/[address] Ayala Patient seen [id number] today on Thursday Patient still in atrial fibrillation however the ventricular response has been improved with the the cardiac has M and the start of the beta blockers. Blood pressure is controlled, occasional elevation with a pain in the neck. Trace to 1+ edema of the lower extremities advised with the compression stocking to be used in a.m. and removed in the p.m. With the occasional elevation of blood pressure, I order Vasotec 1.25 mg IV every 6 hour when necessary however the blood pressure now systolic done by the nurse 113 no added medicine given at this point Cardiology was requesting the orthopedic surgeon for clearance for the anticoagulant i.e. heparin or others in face of the cervical fusion and surgery to have clearance from orthopedic to be used especially if there is any future cardiac cath. Echocardiogram ordered not done today because of Thursday no tach to do that and will be done tomorrow, patient stable and has no chest pain. In regard of swallowing, is gradual improvement, also consulted the dietitian and the speech pathology for continuing evaluation and treatment. In regard of the recommendation of the speech pathology, patient to see ENT they don't come to the hospital, and patient will be followed as outpatient. No complaint at this time from the patient On exam: Temperature 97.9 F oral heart rate 8297 atrial fibrillation currently EKG done this morning with a controlled ventricular response. Chest x-ray on admission was negative normal Respiratory rate 18/m nonlabored Blood pressure 160/72 however the repeat was 113 systolic Oxygen saturation 95% on room air. Troponin first reading 0.105, 0.104, 0.100. Diabetes mellitus POC monitoring improving with the fasting blood sugar is 158 good control. Total cholesterol 153, LDL 58, VLDL 40.2, triglyceride 201. Magnesium 2.2, liver function is normal, renal function is normal with the estimated GFR more than 90. I did speak today with Bharat bahena PA for Dr. Blanco and he indicate that no contraindication for heparin or any other anticoagulant answer the cardiology question for the use of anticoagulation. And left up to the cardiology for the management. On exam: Patient's conscious alert oriented 3 Head was normocephalic and atraumatic pupils equal reactive conjunctivae was pink sclera was nonicteric Oropharynx dentures upper and lower and he is currently on pured diet, wearing the neck brace for his surgery Chest clear to auscultation and percussion, Heart atrial fibrillation with currently controlled ventricular response with the abnormal troponin with a history of FL in the past and history of angioplasty Abdomen soft positive bowel sounds no tenderness Extremities positive pulses bilateral trace edema Neurologically stable Psychiatry stable Assessment #1 atrial fibrillation new onset was R the seen by Dr. Kisha khan ologist to assume his care #2 cleared by orthopedic for use of any anticoagulant for the cardiology question has been and sent #3 hypertension is controlled #4 diabetes mellitus type 2 controlled #5 abnormal troponin 3 with no chest pain however patient is diabetic. #6 echocardiogram is not available not yet will be tomorrow done #7 hypertension is controlled #8 patient on Plavix. #9 hyperlipidemia controlled. #10 status post cervical fusion for spinal stenosis and myelopathy #11 swelling of the posterior pharynx and gradually improving postoperative Plan: #1 in regard of anticoagulant would leave it off to the cardiology floor starting heparin or any other anticoagulant as cleared by the orthopedic #2 continue monitoring the patient tests and a blood sugar as well as blood pressure #3 continue the current medication #4 will will follow the cardiology recommendation and plan and orders Objective - Vital Signs Vital signs: Vital Signs Temp 97.9 F 09/27/23 08:00 Pulse 97 09/27/23 08:00 Resp 18 09/27/23 08:00 BP 160/72 09/27/23 08:00 Pulse Ox 95 09/27/23 08:00 FiO2 Intake & Output 09/26/23 09/27/23 09/27/23 18:59 06:59 18:59 Intake Total 577.75 Balance 577.75 Weight 74.843 kg Intake: Intake, IV Titration 97.75 Amount Diltiazem 125 mg In 97.75 Sodium Chloride 0.9% 100 ml @ 5 MG/HR 5 mls/hr IV .Q24H [facility] Rx#:[id number] Oral 480 Other: Voiding Method Toilet # Voids 1 1 # Bowel Movements 1 - Labs CBC & Chem 7: 09/26/23 12:29 09/26/23 12:29 Labs: Abnormal Lab Results - Last 24 Hours (Table) 09/26/23 09/26/23 09/26/23 Range/Units 12:29 12:29 12:29 WBC 12.5 H (3.8-10.6) k/uL Neutrophils # 8.7 H (1.3-7.7) k/uL Sodium 134 L (137-145) mmol/L BUN 36 H (9-20) mg/dL Glucose 278 H (74-99) mg/dL POC Glucose (mg/dL) (70-110) mg/dL Troponin I 0.105 H* (0.000-0.034) ng/mL Triglycerides (0.00-149.00) mg/dL VLDL Cholesterol, Calc (5.00-40.00) mg/dL 09/26/23 09/26/23 09/26/23 Range/Units 12:29 16:22 19:12 WBC (3.8-10.6) k/uL Neutrophils # (1.3-7.7) k/uL Sodium (137-145) mmol/L BUN (9-20) mg/dL Glucose (74-99) mg/dL POC Glucose (mg/dL) (70-110) mg/dL Troponin I 0.104 H* 0.100 H* (0.000-0.034) ng/mL Triglycerides 201.00 H (0.00-149.00) mg/dL VLDL Cholesterol, Calc 40.20 H (5.00-40.00) mg/dL 09/26/23 09/27/23 Range/Units 19:54 06:14 WBC (3.8-10.6) k/uL Neutrophils # (1.3-7.7) k/uL Sodium (137-145) mmol/L BUN (9-20) mg/dL Glucose (74-99) mg/dL POC Glucose (mg/dL) 237 H 158 H (70-110) mg/dL Troponin I (0.000-0.034) ng/mL Triglycerides (0.00-149.00) mg/dL VLDL Cholesterol, Calc (5.00-40.00) mg/dL
[2023-09-27 16:18] LABS: Glucose,Whole Blood 250 mg/dL (70-110)
[2023-09-27 19:55] LABS: Glucose,Whole Blood 226 mg/dL (70-110)
[2023-09-27] MEDS: cloNIDine HCL 0.1 MG TAB PO SCH (20:31)
[2023-09-27] MEDS: APIXABAN 5 MG TAB PO SCH (20:31)
[2023-09-28 05:05] LABS: Glucose,Whole Blood 133 mg/dL (70-110)
[2023-09-28] MEDS: INSULIN ASPART (NovoLOG) 100 UNIT/ML VIAL SQ SCH ×4 (05:05→20:05)
[2023-09-28] MEDS: METOPROLOL TARTRATE 50 MG TAB PO SCH ×3 (06:53→20:07)
[2023-09-28] MEDS: APIXABAN 5 MG TAB PO SCH ×2 (10:20→20:05)
[2023-09-28] MEDS: amLODIPine 5 MG TAB PO SCH ×2 (10:20→20:05)
[2023-09-28] MEDS: guaiFENesin 600 MG TABLET.ER PO SCH ×2 (10:21→20:05)
[2023-09-28] MEDS: ASPIRIN 81 MG PO SCH (10:21)
[2023-09-28] MEDS: SENNOSIDES-DOCUSATE SODIUM 1 EACH TAB PO SCH (10:21)
[2023-09-28] MEDS: DAPAGLIFLOZIN PROPANEDIOL 10 MG TABLET PO SCH (10:21)
[2023-09-28] MEDS: metFORMIN 500 MG TAB PO SCH ×2 (10:21→17:32)
[2023-09-28] MEDS: ATORVASTATIN 40 MG TAB PO SCH (10:21)
[2023-09-28] MEDS: MULTIVITAMINS, THERA 1 EACH TAB PO SCH (10:21)
[2023-09-28] MEDS: LOSARTAN 50 MG TAB PO SCH (11:20)
[2023-09-28 11:58] LABS: Glucose,Whole Blood 286 mg/dL (70-110)
[2023-09-28 12:13] VITALS: BMI 27.4
--- NOTE | 2023-09-28 12:31 | CA ---
Transthoracic Echo Report Name: Norris South Age: 78 Gender: M : 1945 Exam Date: 09/28/2023 10:41 Exam Location: [place] [facility] Ht (in): 65 Wt (lb): 165 Ordering Physician: Silver Ayala MD Attending/Referring Phys: Operations Boardman Glory Buenrostro Procedure CPT: Indications: Elevated troponin, evaluation of left ventricular Cardiac Hx: Technical Quality: Fair Contrast 1: Total Dose (mL): Contrast 2: Total Dose (mL): MEASUREMENTS (Male / Female) Normal Values 2D ECHO LV Diastolic Diameter PLAX 4.1 cm 4.2 - 5.9 / 3.9 - 5.3 cm LV Systolic Diameter PLAX 3.3 cm IVS Diastolic Thickness 1.0 cm 0.6 - 1.0 / 0.6 - 0.9 cm LVPW Diastolic Thickness 0.9 cm 0.6 - 1.0 / 0.6 - 0.9 cm LV Relative Wall Thickness 0.5 RV Internal Dim ED PLAX 2.7 cm LVOT Diameter 2.1 cm Aortic Root Diameter 3.0 cm LA Systolic Diameter LX 2.5 cm 3.0 - 4.0 / 2.7 - 3.8 cm LV Diastolic Volume MOD BP 43.8 cm??? 67 - 155 / 56 - 104 cm??? LV Systolic Volume MOD BP 19.6 cm??? 22 - 58 / 19 - 49 cm??? LV Ejection Fraction MOD BP 55.3 % >= 55 % LV Cardiac Index MOD BP 1475.7 cm???/min???m??? LV Diastolic Volume MOD 4C 49.5 cm??? LV Systolic Volume MOD 4C 22.3 cm??? LV Ejection Fraction MOD 4C 55.0 % LV Cardiac Index MOD 4C 1657.9 cm???/min???m??? LV Diastolic Length 4C 6.3 cm LV Systolic Length 4C 5.7 cm LV Diastolic Volume MOD 2C 38.4 cm??? LV Systolic Volume MOD 2C 16.7 cm??? LV Ejection Fraction MOD 2C 56.6 % LV Cardiac Index MOD 2C 1325.7 cm???/min???m??? LV Diastolic Length 2C 6.4 cm LV Systolic Length 2C 5.9 cm LA Volume 27.1 cm??? 18 - 58 / 22 - 52 cm??? LA Volume Index 14.5 cm???/m??? 16 - 28 cm???/m??? DOPPLER AV Peak Velocity 141.8 cm/s AV Peak Gradient 8.0 mmHg LVOT Peak Velocity 71.3 cm/s LVOT Peak Gradient 2.0 mmHg LVOT Velocity Time Integral 14.1 cm LVOT Stroke Volume 51.3 cm??? LVOT Stroke Volume Index 28.2 ml/m??? LVOT Cardiac Index 3128.2 cm???/min???m??? AV Area Cont Eq pk 1.8 cm??? MV Peak Velocity 134.8 cm/s MV Peak Gradient 7.3 mmHg MV Mean Velocity 67.1 cm/s MV Mean Gradient 2.3 mmHg MV Velocity Time Integral 24.4 cm Mitral E Point Velocity 111.7 cm/s Mitral A Point Velocity 44.0 cm/s Mitral E to A Ratio 2.5 MV Deceleration Time 182.7 ms FINDINGS Left Ventricle Normal LV size and wall thickness. Left ventricular ejection fraction is estimated at 50-55 %. Right Ventricle Normal right ventricular size. Right Atrium Normal right atrial size. Left Atrium Normal left atrial size. Mitral Valve Structurally normal mitral valve. No mitral stenosis. No mitral regurgitation. Aortic Valve Aortic valve not well visualized. No aortic stenosis. No aortic regurgitation. Tricuspid Valve Tricuspid valve not well visualized. Trace TR. Pulmonic Valve Pulmonic valve not well visualized. Pericardium Normal pericardium. Aorta Normal size aortic root. CONCLUSIONS Technically difficult study for interpretation Normal LV systolic function Previewed by: Dr. Rafael Cabral MD (Electronically Signed) Final Date: 28 September 2023 12:30
[2023-09-28] MEDS: PIOGLITAZONE 30 MG TAB PO SCH (12:55)
--- NOTE | 2023-09-28 13:12 | P.PN ---
Subjective HISTORY OF PRESENT ILLNESS: This is an 78-year-old male who follows in the office with Dr. Martinez. Patient examined this morning at the bedside. Patient currently denies chest pain or pressure. He denies shortness of breath. Telemetry reveals atrial fibrillation with a heart rate around 110. Blood pressure 143/73. Echocardiogram completed revealing ejection fraction 50-55%. PHYSICAL EXAM: VITAL SIGNS: Reviewed. GENERAL: Well-developed in no acute distress. NECK: Supple. No JVD or thyromegaly. Neck brace noted. LUNGS: Respirations even and unlabored. Lungs essentially clear to auscultation bilaterally. HEART: Mildly tachycardic. Irregular rate and rhythm. S1 and S2 heard. EXTREMITIES: Normal range of motion. No clubbing or cyanosis. Peripheral pulses intact. No lower extremity edema ASSESSMENT: New-onset atrial fibrillation with RVR Recent cervical spine surgery Abnormal troponin, likely secondary to A. fib with RVR, no evidence of acute coronary syndrome Coronary artery disease Hypertension Hyperlipidemia Diabetes PLAN: Discontinue aspirin Continue anticoagulation with Eliquis Increase losartan to 100 mg daily Increase metoprolol tartrate to 50 mg 3 times a day Continue telemetry monitoring Continue to monitor blood pressure Further recommendations pending patient's course Nurse practitioner note has been reviewed by physician. Signing provider agrees with the documented findings, assessment, and plan of care. Objective - Vital Signs Vital signs: Vital Signs Temp 97.5 F L 09/28/23 08:00 Pulse 50 L 09/28/23 08:00 Resp 18 09/28/23 08:00 BP 143/73 09/28/23 08:00 Pulse Ox 98 09/28/23 08:00 FiO2 Intake & Output 09/27/23 09/28/23 09/28/23 18:59 06:59 18:59 Intake Total 1293.75 180 Balance 1293.75 180 Weight 74.8 kg Intake: Intake, IV Titration 97.75 Amount Diltiazem 125 mg In 97.75 Sodium Chloride 0.9% 100 ml @ 5 MG/HR 5 mls/hr IV .Q24H [facility] Rx#:[id number] Oral 1196 180 Other: Voiding Method Toilet Toilet Toilet # Voids 2 1 # Bowel Movements 1 - Labs CBC & Chem 7: 09/26/23 12:29 09/26/23 12:29 Labs: Abnormal Lab Results - Last 24 Hours (Table) 09/27/23 09/27/23 09/28/23 Range/Units 16:16 19:54 05:04 POC Glucose (mg/dL) 250 H 226 H 133 H (70-110) mg/dL 09/28/23 Range/Units 11:57 POC Glucose (mg/dL) 286 H (70-110) mg/dL
[2023-09-28 16:26] LABS: Glucose,Whole Blood 334 mg/dL (70-110)
[2023-09-28 16:26] LABS: Glucose,Whole Blood 346 mg/dL (70-110)
--- NOTE | 2023-09-28 17:24 | P.PN ---
Subjective Progress Note Date: 09/28/23 Progress note line date of service 09/28/[address] Ayala Patient seen and evaluated discussed with the patient and his daughter at bedside. Vital signs stable temperature 97.5 Heart rate 59-50 bpm with the atrial fibrillation fluctuating from sinus to atrial fib, seen today by PA cardiology, and Dr. Millan etiology adjusted his medication and increased his beta segun to 50 mg 3 times a day also increased his losartan to 100 mg once a day. Diabetes mellitus is uncontrolled the adding pioglitazone, also Levemir daily at bedtime 10 units. With the estimation of insulin 0.15 multiplied by 75 kg equal to 10 units twice a day however because of patient upon avoiding any hypoglycemic agent will start only 10 units. Cardiology still monitoring the patient for the atrial fib no dictation to indicate Foster investigation. Echocardiogram read by Dr. Hardy water quality analyst indicating ejection fraction 50- 55%. Blood pressure currently controlled 143/73 Oxygen saturation 96% on room air. Patient living alone and is still under rehab for surgery of his neck for the cervical spine stenosis and myelopathy and at this time his daughter and the patient refusing to go back to [facility] on the [place] and they spoke to [place] social service assistant to change to medical [place] [facility] [place] for continuing rehab. Patient also had speech pathology team and they stated this tell no much improvement on his swallowing and they recommended to see ENT in 2 weeks after his rehabilitation in the fdc. With the difficulty of swallowing Today patient had his stocking compression and no far 30 edema of the lower extremities. On exam conscious alert oriented 3 able to communicate with these change of voi ce, daughter at bedside. Head was normocephalic and atraumatic, pupil equal reactive, he has dentures upper and lower. Wearing neck brace for pulsed fusion and dried on the cervical spine Chest is clear with no wheezes or rhonchi's normal breath sounds Heart currently atrial fibrillation paroxysmal with the underlying elevated troponin. However echocardiogram was 50-55 ejection fraction no motion abnormalities. Abdomen soft positive bowel sounds Extremities no edema positive pulses Psychiatry stable Neurologically stable Assessment: #1 atrial fibrillation and new onset with rapid ventricular response #2 currently patient placed on Eliquis by cardiology. #3 diabetes mellitus uncontrolled medication adjusted #4 hypertension controlled #5 status post cervical neck surgery with fusion and malka and wearing neck brace with a history of cervical stenosis and myelopathy #6 hyper lipidemia. #7 history of coronary artery disease athero-sclerotic artery disease and angioplasty0 Plan: #1 cardiology is monitoring the patient, #2 we waiting for clearance from the cardiology to be transferred to a fdc of patient choice #3 social service assistant for planning to change in the fdc with the wishes of the patient medical [place]. #4 continue the diet. Dietitian and the speech pathology adjustment #5 follow-up as outpatient with ENT of the patient choice as discussed with the daughter #6 future follow-up with Dr. Segundo spine orthopedic surgeon for follow-up. Objective - Vital Signs Vital signs: Vital Signs Temp 97.5 F L 09/28/23 08:00 Pulse 59 L 09/28/23 14:00 Resp 18 09/28/23 14:00 BP 143/73 09/28/23 08:00 Pulse Ox 97 09/28/23 12:00 FiO2 Intake & Output 09/27/23 09/28/23 09/28/23 18:59 06:59 18:59 Intake Total 1293.75 360 Balance 1293.75 360 Weight 74.8 kg Intake: Intake, IV Titration 97.75 Amount Diltiazem 125 mg In 97.75 Sodium Chloride 0.9% 100 ml @ 5 MG/HR 5 mls/hr IV .Q24H [facility] Rx#:[id number] Oral 1196 360 Other: Voiding Method Toilet Toilet Toilet # Voids 2 1 1 # Bowel Movements 1 - Labs CBC & Chem 7: 09/26/23 12:29 09/26/23 12:29 Labs: Abnormal Lab Results - Last 24 Hours (Table) 09/27/23 09/28/23 09/28/23 Range/Units 19:54 05:04 11:57 POC Glucose (mg/dL) 226 H 133 H 286 H (70-110) mg/dL 09/28/23 09/28/23 Range/Units 16:23 16:24 POC Glucose (mg/dL) 346 H 334 H (70-110) mg/dL
[2023-09-28] MEDS: cloNIDine HCL 0.1 MG TAB PO SCH (20:05)
[2023-09-28] MEDS: INSULIN DETEMIR (LEVEMIR) 100 UNIT/ML SYR SQ SCH (20:05)
[2023-09-29] MEDS: INSULIN ASPART (NovoLOG) 100 UNIT/ML VIAL SQ SCH ×4 (05:35→20:32)
[2023-09-29 05:57] LABS: Glucose,Whole Blood 94 mg/dL (70-110)
[2023-09-29] MEDS: metFORMIN 500 MG TAB PO SCH ×2 (06:33→17:14)
[2023-09-29] MEDS: MULTIVITAMINS, THERA 1 EACH TAB PO SCH (08:42)
[2023-09-29] MEDS: DAPAGLIFLOZIN PROPANEDIOL 10 MG TABLET PO SCH (08:42)
[2023-09-29] MEDS: ATORVASTATIN 40 MG TAB PO SCH (08:42)
[2023-09-29] MEDS: LOSARTAN 50 MG TAB PO SCH (08:42)
[2023-09-29] MEDS: METOPROLOL TARTRATE 50 MG TAB PO SCH ×3 (08:42→20:32)
[2023-09-29] MEDS: amLODIPine 5 MG TAB PO SCH ×2 (08:42→20:32)
[2023-09-29] MEDS: APIXABAN 5 MG TAB PO SCH ×2 (08:42→20:32)
[2023-09-29] MEDS: guaiFENesin 600 MG TABLET.ER PO SCH ×2 (08:45→20:32)
[2023-09-29] MEDS: SENNOSIDES-DOCUSATE SODIUM 1 EACH TAB PO SCH (08:47)
[2023-09-29] MEDS: PIOGLITAZONE 30 MG TAB PO SCH (08:58)
--- NOTE | 2023-09-29 11:11 | P.PN ---
Subjective HISTORY OF PRESENT ILLNESS: This is an 78-year-old male who follows in the office with Dr. Martinez. Patient examined this morning at the bedside. Patient currently denies chest pain or pressure. He denies shortness of breath. Telemetry reveals atrial fibrillation with a heart rate around 110. Blood pressure 143/73. Echocardiogram completed revealing ejection fraction 50-55%. September 29, 2023 Patient examined this morning at bedside. Patient denies chest pain or pressure. He denies shortness of breath. Patient has converted to sinus mechanism and is maintaining sinus mechanism this morning. Heart rate in the 6 0s. Blood pressure in the [id number]. PHYSICAL EXAM: VITAL SIGNS: Reviewed. GENERAL: Well-developed in no acute distress. NECK: Supple. No JVD or thyromegaly. Neck collar noted LUNGS: Respirations even and unlabored. Lungs essentially clear to auscultation bilaterally. HEART: Regular rate and rhythm. S1 and S2 heard. EXTREMITIES: Normal range of motion. No clubbing or cyanosis. Peripheral pulses intact. No lower extremity edema ASSESSMENT: New-onset atrial fibrillation with RVR, paroxysmal, currently maintaining sinus mechanism Recent cervical spine surgery Abnormal troponin, likely secondary to A. fib with RVR, no evidence of acute coronary syndrome Coronary artery disease Hypertension Hyperlipidemia Diabetes PLAN: Continue current cardiac medications Patient is stable from a cardiac standpoint with no further inpatient recommendations We will sign off. Please reconsult if needed. Nurse practitioner note has been reviewed by physician. Signing provider agrees with the documented findings, assessment, and plan of care. Objective - Vital Signs Vital signs: Vital Signs Temp 97.4 F L 09/29/23 08:40 Pulse 67 09/29/23 08:40 Resp 16 09/29/23 08:40 BP 160/79 09/29/23 08:40 Pulse Ox 95 09/29/23 08:40 FiO2 Intake & Output 09/28/23 09/29/23 09/29/23 18:59 06:59 18:59 Intake Total 540 118 118 Balance 540 118 118 Weight 74.8 kg Intake: Oral 540 118 118 Other: Voiding Method Toilet Toilet # Voids 1 - Labs CBC & Chem 7: 09/26/23 12:29 09/26/23 12:29 Labs: Abnormal Lab Results - Last 24 Hours (Table) 09/28/23 09/28/23 09/28/23 Range/Units 11:57 16:23 16:24 POC Glucose (mg/dL) 286 H 346 H 334 H (70-110) mg/dL
[2023-09-29 11:57] LABS: Glucose,Whole Blood 185 mg/dL (70-110)
[2023-09-29 16:20] LABS: Glucose,Whole Blood 274 mg/dL (70-110)
--- NOTE | 2023-09-29 18:18 | P.PN ---
Subjective Progress Note Date: 09/29/23 Progress noteProgress note Dictation by Dr. Ayala Date of service 09/29/2023 Patient seen and evaluated [id number] and discussed with him the plan. Patient seen by Dr. Nam cardiology and he sign out and cleared him for discharge. Patient came from [facility] on the [place] for his rehabilitation, he decided not to go back and he change his shelter to medical [place], The availability of the bed and approval will be seen tomorrow and I spoke to Keeley GRIMES and she will call us tomorrow if he has a bed or not for discharge Patient will be followed by Dr. ANSLEY Martinez as outpatient Patient will be also followed by ENT of his choice Patient will be continuing his program for the diet and the speech pathology and subsequently re-evaluation by speech pathology as well at [facility] Today he felt some improvement on his swallowing still is on pured diet with the recommendation of dietitian and the speech pathology to avoid aspiration. On exam: Temperature 97.4, heart rate 73 with the atrial fib controlled ventricular response respiratory rate is 16/m, blood pressure 142/81, mean 101, oxygen saturation 98%. Head was normocephalic and atraumatic pupils equal reactive and he had the dentures upper and lower, normal hearing Neck still continued to wear a neck brace per recommendation of the orthopedic with the recent history of cervical spine stenosis and myelopathy and is status post fusion and malka. Chest was clear to auscultation percussion no wheezes nor rhonchi's Heart currently stable with the controlled ventricular response and heart rate ranging between 56-73 Abdomen is soft positive bowel sounds and extremities no edema and wearing stocking, positive pulses. Neurologically stable no lateralizing sign moving upper and lower extremities Psychiatry stable. Assessment: Acute onset of new atrial fibrillation with RVR currently controlled Abnormal troponin elevation with a normal echocardiogram Probably supply and demand of the heart and with the release of troponin. Diabetes mellitus type 2 fairly well controlled Hypertension with hypertensive heart disease controlled blood pressure. No evidence of aspiration. Plan: #1 waiting for tomorrow acceptance by the insurance and the bed availability at [facility]. #2 patient cleared by cardiology Dr. Millan for discharge, also follow-up with Dr. ANSLEY Martinez as outpatient. #3 patient continue on Eliquis anticoagulant prescribed by cardiology. #4 follow-up with ENT of patient choice #5 follow-up with the dietitian program as well as speech pathology . Objective - Vital Signs Vital signs: Vital Signs Temp 97.4 F L 09/29/23 08:40 Pulse 73 09/29/23 16:30 Resp 16 09/29/23 16:30 BP 142/81 09/29/23 16:30 Pulse Ox 98 09/29/23 16:30 FiO2 Intake & Output 09/28/23 09/29/23 09/29/23 18:59 06:59 18:59 Intake Total 540 118 236 Balance 540 118 236 Weight 74.8 kg Intake: Oral 540 118 236 Other: Voiding Method Toilet Toilet # Voids 1 - Labs CBC & Chem 7: 09/26/23 12:29 09/26/23 12:29 Labs: Abnormal Lab Results - Last 24 Hours (Table) 09/29/23 09/29/23 Range/Units 11:56 16:18 POC Glucose (mg/dL) 185 H 274 H (70-110) mg/dL
[2023-09-29 19:53] LABS: Glucose,Whole Blood 305 mg/dL (70-110)
[2023-09-29] MEDS: HYDROcodone/APAP 5-325MG 1 EACH TAB PO PRN (20:31)
[2023-09-29] MEDS: INSULIN DETEMIR (LEVEMIR) 100 UNIT/ML SYR SQ SCH (20:31)
[2023-09-29] MEDS: cloNIDine HCL 0.1 MG TAB PO SCH (20:32)
[2023-09-30 06:09] LABS: Glucose,Whole Blood 87 mg/dL (70-110)
[2023-09-30] MEDS: INSULIN ASPART (NovoLOG) 100 UNIT/ML VIAL SQ SCH ×4 (06:09→20:56)
[2023-09-30] MEDS: metFORMIN 500 MG TAB PO SCH ×2 (06:52→17:01)
[2023-09-30] MEDS: guaiFENesin 600 MG TABLET.ER PO SCH ×2 (08:40→20:57)
[2023-09-30] MEDS: PIOGLITAZONE 30 MG TAB PO SCH (08:40)
[2023-09-30] MEDS: SENNOSIDES-DOCUSATE SODIUM 1 EACH TAB PO SCH (08:40)
[2023-09-30] MEDS: APIXABAN 5 MG TAB PO SCH ×2 (08:40→20:57)
[2023-09-30] MEDS: DAPAGLIFLOZIN PROPANEDIOL 10 MG TABLET PO SCH (08:40)
[2023-09-30] MEDS: MULTIVITAMINS, THERA 1 EACH TAB PO SCH (08:40)
[2023-09-30] MEDS: METOPROLOL TARTRATE 50 MG TAB PO SCH ×3 (08:40→20:57)
[2023-09-30] MEDS: amLODIPine 5 MG TAB PO SCH ×2 (08:40→20:57)
[2023-09-30] MEDS: LOSARTAN 50 MG TAB PO SCH (08:40)
[2023-09-30] MEDS: ATORVASTATIN 40 MG TAB PO SCH (08:40)
--- NOTE | 2023-09-30 09:27 | P.DS ---
Providers Date of admission: 09/26/23 14:15 Expected date of discharge: 09/30/23 Attending physician: Silver Ayala Consults: 09/27/23 10:47 Consult Physician Urgent Consulting Provider: Pablito Blanco Consult Reason/Comments: cardiology wants ortho clearnce to use heparine and antiocoagulant with spi Do you want consulting provider notified?: Yes Primary care physician: Silver Ayala Discharge summary Date of service 09/30/[address] Ayala Disposition discharged to [facility] reviewed Discussed with the patient. Patient will be under my care and [facility] Final diagnosis: 1. Acute onset of atrial fibrillation with RVR controlled on discharge 2. Abnormal troponin elevation with normal echocardiogram 3. Probably associated with supply and demand with the fast rapid response of the left ventricle. 4. Diabetes mellitus type 2 insulin-dependent currently controlled with the fasting blood sugar on 09/26/2486. 5. Hypertension with hypertensive heart disease. 6. Recent history of cervical stenosis, status post anterior approach for cervical spine fusion and malka by Dr. Segundo 7. Post operative complication with dysphagia and swallowing difficulty 8. Patient has special diet designed by the speech pathology and dietitian in my clearance [facility]. 9. Hyperlipidemia. Need for thorough rehabitation in the [facility], Follow-up with Dr. ANSLEY Martinez cardiology Follow-up with Dr. Segundo the spine surgeon and orthopedic associate Follow-up with the speech pathology in [facility] Follow-up with the communication between [facility] dietitian and he will run [facility] dietitian. Follow-up with the discharge from [facility] with Dr. Ayala. Patient will be followed in the [facility] by Dr. Ayala. Follow-up was ENT of the patient and his daughter choice as outpatient. Patient admitted to emergency room sent by ambulance because of acute onset of atrial fibrillation with RVR and found in the ER that he has abnormal elevation of troponin seen by the cardiology Dr. Millan and cleared before discharge On discharge patient stable Exam before discharge: Temperature 98.1 F oral, heart rate 54 bpm, respiratory rate 16/min, blood pressure 151/63 with the fluctuation with the discomfort in the neck, oxygen saturation 98% on room air Patient is conscious alert oriented able to communicate freely and ambulatory with the walker. Head was normocephalic atraumatic, pupils equal reactive, normal hearing, dentures upper and lower. Neck was supple with he wearing the neck brace per orthopedic spine surgeon. Chest clear to auscultation percussion with normal breath sounds, Heart atrial fibrillation open new onset, currently on Eliquis to continue in the [facility] and to follow with Dr. ANSLEY Martinez. Abdomen soft positive bowel sounds no tenderness in the 4 quadrant Extremities mild weakness from cervical myelopathy and needs walker, pulses intact, wearing compression stocking with no edema. Neurologically: Stable no lateralizing sign mild weakness with ambulation with the cervical myelopathy. Psychiatry stable Assessment: Stable general condition and I discussed the pain management with the patient and he stated that his discomfort in the neck can be treated with regular Tylenol at this time and there is no need for Darrow however if he has pain in the [facility] they can call me in the office and we can give the medication. Or the orthopedic surgeon who did the surgery Dr. Blanco spine orthopedic surgeon. Plan: 1. Need communication between the [facility] dietitian and speech pathology with the current [facility] speech pathology and dietitian. And need for follow-up with him 2. Patient need to see ENT of the patient's choice I Dr. Osuna, Dr. Cohen, or Dr. Jose M Ness for the evaluation of the posterior pharynx and the swallowing and the epiglottis. And that is done as outpatient. Plan - Discharge Summary Discharge Rx Participant: No New Discharge Prescriptions: New Insulin Detemir (Levemir) [Levemir] 10 unit SQ HS each Multivitamins, Thera [Multivitamin (formulary)] 1 each PO DAILY tab Nitroglycerin Sl Tabs [Nitrostat] 0.4 mg SUBLINGUAL Q5M PRN tab PRN Reason: Chest Pain INSULIN ASPART (NovoLOG) [NovoLOG (formulary)] 10 - 18 unit SQ ACHS each Pioglitazone [Actos] 30 mg PO DAILY tab Apixaban [Eliquis] 5 mg PO BID tab Metoprolol Tartrate [Lopressor] 50 mg PO TID tab Continue metFORMIN HCL ER [Glucophage XR] 500 mg PO BID Aspirin EC [Ecotrin Low Dose] 81 mg PO DAILY guaiFENesin [Mucinex] 600 mg PO BID Empagliflozin [Jardiance] 25 mg PO DAILY Losartan Potassium 100 mg PO DAILY cloNIDine HCL 0.2 mg PO DAILY amLODIPine [Norvasc] 5 mg PO BID Multivitamins, Thera [Multivitamin (formulary)] 1 tab PO DAILY Baclofen 10 mg PO TID PRN #90 tab PRN Reason: Spasms Sennosides-Docusate Sodium [Senokot-S] 1 tab PO DAILY Atorvastatin [Lipitor] 40 mg PO DAILY Discontinued Metoprolol Succinate (ER) [Toprol XL] 25 mg PO DAILY hydrALAZINE HCL [Apresoline] 50 mg PO TID Insulin NPH Hum/Reg Insulin Hm [NovoLIN 70-30 Flexpen] 20 units SQ W/BRKFST HYDROcodone/APAP 5-325MG [Darrow 5] 1 tab PO Q6HR PRN PRN Reason: Pain Insulin NPH Hum/Reg Insulin Hm [NovoLIN 70-30 Flexpen] 24 units SQ W/SUPPER Discharge Medication List Aspirin EC [Ecotrin Low Dose] 81 mg PO DAILY 01/29/23 [History] Empagliflozin [Jardiance] 25 mg PO DAILY 01/29/23 [History] Multivitamins, Thera [Multivitamin (formulary)] 1 tab PO DAILY 01/29/23 [History] amLODIPine [Norvasc] 5 mg PO BID 01/29/23 [History] cloNIDine HCL 0.2 mg PO DAILY 01/29/23 [History] guaiFENesin [Mucinex] 600 mg PO BID 01/29/23 [History] metFORMIN HCL ER [Glucophage XR] 500 mg PO BID 01/29/23 [History] Baclofen 10 mg PO TID PRN #90 tab 09/23/23 [Rx] Atorvastatin [Lipitor] 40 mg PO DAILY 09/26/23 [History] Losartan Potassium 100 mg PO DAILY 09/26/23 [History] Sennosides-Docusate Sodium [Senokot-S] 1 tab PO DAILY 09/26/23 [History] Apixaban [Eliquis] 5 mg PO BID tab 09/30/23 [Rx] INSULIN ASPART (NovoLOG) [NovoLOG (formulary)] 10 - 18 unit SQ ACHS each 09/30/23 [Rx] Insulin Detemir (Levemir) [Levemir] 10 unit SQ HS each 09/30/23 [Rx] Metoprolol Tartrate [Lopressor] 50 mg PO TID tab 09/30/23 [Rx] Multivitamins, Thera [Multivitamin (formulary)] 1 each PO DAILY tab 09/30/23 [Rx] Nitroglycerin Sl Tabs [Nitrostat] 0.4 mg SUBLINGUAL Q5M PRN tab 09/30/23 [Rx] Pioglitazone [Actos] 30 mg PO DAILY tab 09/30/23 [Rx] Follow up Appointment(s)/Referral(s): Darin Kelley MD [STAFF PHYSICIAN] - 1-2 days Jesus Manuel Lang PAC [PHYSICIAN DRYWALL METAL STUD WORKER] - 10/06/23 10:50 am (Patient may follow- up as already scheduled on 10/06/2023 at 10:50 AM.) Activity/Diet/Wound Care/Special Instructions: 1. Patient may shower without Optifoam dressing intact. 2. Patient must wear a hard cervical collar while upright and with increased activities. 3. Patient may may wear soft cervical collar for comfort support while lying down or sleeping. 4. Patient should refrain from driving until at least after their first follow- up appointment in the office. 5. Patient should avoid excessive cervical flexion, extension, and side bending; avoid overhead lifting; no lifting greater than 10 pounds 6. Take medications as prescribed 7. Patient should avoid anti-inflammatory medications over the next 6 weeks postoperatively 8. Patient is encouraged to continue using a walker to aid in ambulation 9. Do not soak in tub Discharge Disposition: TRANSFER TO SNF/ECF
[2023-09-30 11:32] LABS: Glucose,Whole Blood 262 mg/dL (70-110)
[2023-09-30 16:46] LABS: Glucose,Whole Blood 265 mg/dL (70-110)
[2023-09-30 20:24] LABS: Glucose,Whole Blood 267 mg/dL (70-110)
[2023-09-30] MEDS: INSULIN DETEMIR (LEVEMIR) 100 UNIT/ML SYR SQ SCH (20:56)
[2023-09-30] MEDS: cloNIDine HCL 0.1 MG TAB PO SCH (20:57)
[2023-10-01 05:58] LABS: Glucose,Whole Blood 86 mg/dL (70-110)
[2023-10-01] MEDS: INSULIN ASPART (NovoLOG) 100 UNIT/ML VIAL SQ SCH ×4 (06:08→20:38)
[2023-10-01] MEDS: metFORMIN 500 MG TAB PO SCH ×2 (06:36→17:00)
[2023-10-01] MEDS: DAPAGLIFLOZIN PROPANEDIOL 10 MG TABLET PO SCH (08:27)
[2023-10-01] MEDS: guaiFENesin 600 MG TABLET.ER PO SCH ×2 (08:27→20:38)
[2023-10-01] MEDS: PIOGLITAZONE 30 MG TAB PO SCH (08:27)
[2023-10-01] MEDS: LOSARTAN 50 MG TAB PO SCH (08:27)
[2023-10-01] MEDS: MULTIVITAMINS, THERA 1 EACH TAB PO SCH (08:27)
[2023-10-01] MEDS: ATORVASTATIN 40 MG TAB PO SCH (08:27)
[2023-10-01] MEDS: SENNOSIDES-DOCUSATE SODIUM 1 EACH TAB PO SCH ×2 (08:27→08:31)
[2023-10-01] MEDS: amLODIPine 5 MG TAB PO SCH ×2 (08:28→20:38)
[2023-10-01] MEDS: APIXABAN 5 MG TAB PO SCH ×2 (08:28→20:38)
[2023-10-01] MEDS: METOPROLOL TARTRATE 50 MG TAB PO SCH ×3 (08:28→22:55)
--- NOTE | 2023-10-01 09:58 | P.PN ---
Progress Note - Text Progress Note Date: 10/01/23 And examined today at bedside in regards to his cervical spine. He says his neck is feeling better. His arms are doing better but he still has some tingling in his hands and fingers. He is not having worsening pain at his neck. He still having some difficulty with his swallowing but he says that it is improving. He has been able to tolerate his modified diet well. On exam of his neck there is some mild swelling around the incision site but it is soft and nontense. His incision appears to be healing well. His upper extremities have good motion throughout. He still has some global difficulty with fine dexterity at his hands and fingers. Postoperative day #8 status post anterior cervical decompression with discectomy and fusion for his severe cervical myelopathy and upper extremity weakness Recent issues with atrial fibrillation with rapid ventricular response which appears to be stabilizing and resolving with treatment In regards to the patient neck, it appears to be healing appropriately. He is scheduled to go to care home today and I think that is appropriate. It is okay for him to mobilize. He should continue his hard cervical collar whenever he is out of bed. When he is safe to advance his diet it is okay from a orthopedic spine standpoint. We are scheduled to see him later this month next week and we can follow-up as scheduled on October 06.
[2023-10-01 11:22] LABS: Glucose,Whole Blood 216 mg/dL (70-110)
[2023-10-01 16:55] LABS: Glucose,Whole Blood 200 mg/dL (70-110)
[2023-10-01 17:12] VITALS: RESP 18
--- NOTE | 2023-10-01 17:38 | P.PN ---
Subjective Progress Note Date: 10/01/23 Objective - Vital Signs Vital signs: Vital Signs Temp 98 F 10/01/23 16:00 Pulse 52 L 10/01/23 16:00 Resp 18 10/01/23 16:00 BP 159/74 10/01/23 16:00 Pulse Ox 99 10/01/23 16:00 FiO2 Intake & Output 09/30/23 10/01/23 10/01/23 18:59 06:59 18:59 Intake Total 852 540 540 Balance 852 540 540 Weight 74.8 kg Intake: Oral 852 540 540 Other: Voiding Method Toilet Toilet # Voids 2 1 1 - Labs CBC & Chem 7: 09/26/23 12:29 09/26/23 12:29 Labs: Abnormal Lab Results - Last 24 Hours (Table) 09/30/23 10/01/23 10/01/23 Range/Units 20:22 11:21 16:49 POC Glucose (mg/dL) 267 H 216 H 200 H (70-110) mg/dL
[2023-10-01 20:26] LABS: Glucose,Whole Blood 292 mg/dL (70-110)
[2023-10-01] MEDS: INSULIN DETEMIR (LEVEMIR) 100 UNIT/ML SYR SQ SCH (20:37)
[2023-10-01] MEDS: hydrALAZINE HCL 10 MG TAB PO SCH (20:38)
[2023-10-01] MEDS: cloNIDine HCL 0.1 MG TAB PO SCH (20:38)
[2023-10-01] MEDS: FUROSEMIDE 20 MG TAB PO SCH (20:46)
[2023-10-02 06:47] LABS: Glucose,Whole Blood 148 mg/dL (70-110)
[2023-10-02] MEDS: INSULIN ASPART (NovoLOG) 100 UNIT/ML VIAL SQ SCH ×2 (06:48→11:52)
[2023-10-02] MEDS: metFORMIN 500 MG TAB PO SCH ×2 (06:54→16:42)
[2023-10-02] MEDS: SENNOSIDES-DOCUSATE SODIUM 1 EACH TAB PO SCH (08:21)
[2023-10-02] MEDS: guaiFENesin 600 MG TABLET.ER PO SCH (08:21)
[2023-10-02] MEDS: hydrALAZINE HCL 10 MG TAB PO SCH (08:21)
[2023-10-02] MEDS: ATORVASTATIN 40 MG TAB PO SCH (08:21)
[2023-10-02] MEDS: amLODIPine 5 MG TAB PO SCH (08:22)
[2023-10-02] MEDS: LOSARTAN 50 MG TAB PO SCH (08:22)
[2023-10-02] MEDS: FUROSEMIDE 20 MG TAB PO SCH (08:22)
[2023-10-02] MEDS: MULTIVITAMINS, THERA 1 EACH TAB PO SCH (08:22)
[2023-10-02] MEDS: DAPAGLIFLOZIN PROPANEDIOL 10 MG TABLET PO SCH (08:22)
[2023-10-02] MEDS: METOPROLOL TARTRATE 50 MG TAB PO SCH ×2 (08:22→15:32)
[2023-10-02] MEDS: APIXABAN 5 MG TAB PO SCH (08:22)
[2023-10-02] MEDS: PIOGLITAZONE 30 MG TAB PO SCH (08:22)
[2023-10-02 11:49] LABS: Glucose,Whole Blood 313 mg/dL (70-110)
[2023-10-02 15:43] VITALS: BP 155/74; PULSE 64; TEMP 97.9
[2023-10-02 16:23] LABS: Glucose,Whole Blood 315 mg/dL (70-110)
--- NOTE | 2023-10-02 16:38 | P.DS ---
Providers Date of admission: 09/26/23 14:15 Expected date of discharge: 10/02/23 Attending physician: Silver Ayala Consults: 09/27/23 10:47 Consult Physician Urgent Consulting Provider: Pablito Blanco Consult Reason/Comments: cardiology wants ortho clearnce to use heparine and antiocoagulant with spi Do you want consulting provider notified?: Yes Primary care physician: Silver Ayala Discharge summary Date of discharge 10/02/2023. Final diagnoses: 1. Acute onset of atrial fibrillation with RVR 2. Abnormal troponin probably secondary to supply and demand. 3. Diabetes mellitus type 2 uncontrolled 4. Hypertension with hypertensive heart disease. 5. Coronary artery disease atherosclerotic artery disease #6 hyperlipidemia. 7. Status post cervical spine decompression and malka by Dr. Segundo spine orthopedic surgeon 8. Status post swallowing difficulty was postoperative complication.. Seen by speech pathology as well as dietitian for special diet. #9 currently patient sinus on the discharge. With bradycardia 54 due to beta- blockers which is adjusted by the gas pumping station operator Consultation: #[address] Ramirez, followed by Dr. Millan, his primary car diologist Dr. ANSLEY Martinez. 2. Dr. Segundo spine orthopedic surgeon. 3. Speech pathology, and dietitian. Procedure none Echocardiogram Normal left ventricular systolic function with estimated ejection fraction 50 to 55% Patient cleared by orthopedic for novel anticoagulant due to recent surgery for the cervical spine. Patient placed on Eliquis per cardiology service. Patient to follow-up: For his diabetes by his dermatology sales representative that has been monitoring his diabetes mellitus Dr. Davis Follow-up was cardiology Dr. ANSLEY Martinez for his atrial fibrillation Patient delayed discharge due to waiting for authorization by the mental health social worker and program services planner to go to a alf [facility] as patient refused to go back to [facility] on the [facility] Patient was admitted initially to [facility] on the [place] post surgery of the decompression of the cervical spine under the orthopedic service, subsequently sent back on on the next day because of the new onset of atrial fibrillation. ER presentation: New onset of atrial fibrillation with abnormal troponin x 3. Seen by cardiology also in the ER On discharge: The insurance of the patient per the mental health social worker and program services planner denied acceptance to the alf and the patient need to go home with that delay patient discharged today in a stable general condition Patient vital signs Temperature 97.7 F oral, heart rate 54 bpm with sinus bradycardia., Respiratory rate 18/min nonlabored. Blood pressure 123/66 with a mean 85. Pulse ox 98% on room air. Head was normocephalic and atraumatic, pupil equal reactive, hearing normal, oropharynx dentures upper and lower no difficulty of speech however patient has mild swallowing problem and has been followed with the speech pathology and dietitian and he is on pured diet to be advanced per Dr. Segundo the orthopedic surgeon as tolerated. Neck was supple and he wearing the neck brace per Dr. Segundo the orthopedic spine surgeon with some lenient for using it during the night. Chest: Clear to auscultation percussion Heart currently sinus rhythm no obvious abnormalities. Regular sinus The abdomen is soft positive bowel sounds Extremities no edema positive pulses and he had still some paresthesia from underlying history of cervical myelopathy Neurologically patient had still remanent of the myelopathy secondary to cervical spine and he is on the room surgery for decompression and right of the cervical neck Psychiatry stable Patient will be followed as outpatient with the speech pathology in the hospital as well as continue with the visiting nurse and follow-up with Dr. Segundo as outpatient. Also speech pathology recommended to see ENT of patient's choice as outpatient. For further evaluation Medicines reconciled and pain medication originally described by the orthopedic and we will be giving him 3 days until he check with the orthopedic surgeon in the future if fourth her pain medication needed Patient stable Condition and uses a walker for ambulation and only may need rehab at home and has not insurance refused and denied his return to alf. As patient going back home he will be continuing with the 70/30 insulin [address] order of Dr. Davis dermatology sales representative and advised to follow-up with him for for further monitoring of the diabetes His medications are reconciled and also prescription went to the [facility] in the hospital pharmacy. Follow-up in my office and 5 to 7 days postdischarge Plan - Discharge Summary Discharge Rx Participant: No New Discharge Prescriptions: New Multivitamins, Thera [Multivitamin (formulary)] 1 each PO DAILY tab Nitroglycerin Sl Tabs [Nitrostat] 0.4 mg SUBLINGUAL Q5M PRN tab PRN Reason: Chest Pain hydrALAZINE HCL [Apresoline] 10 mg PO BID tab Dapagliflozin Propanediol [Farxiga] 10 mg PO DAILY 30 Days #30 tab Insulin NPH/Reg Insulin 70/30 [humuLIN 70/30 VIAL] 24 unit SQ AC-BID #3 ml cloNIDine HCL [Catapres] 0.1 mg PO HS #30 tab Pioglitazone [Actos] 30 mg PO DAILY tab Apixaban [Eliquis] 5 mg PO BID tab Metoprolol Tartrate [Lopressor] 50 mg PO TID tab Furosemide [Lasix] 20 mg PO DAILY tab cloNIDine HCL [Catapres] 0.1 mg PO HS #30 tab HYDROcodone/APAP 5-325MG [[place] 5-325] 1 each PO Q6HR PRN #12 tab PRN Reason: Pain Continue metFORMIN HCL ER [Glucophage XR] 500 mg PO BID Aspirin EC [Ecotrin Low Dose] 81 mg PO DAILY guaiFENesin [Mucinex] 600 mg PO BID Losartan Potassium 100 mg PO DAILY amLODIPine [Norvasc] 5 mg PO BID Multivitamins, Thera [Multivitamin (formulary)] 1 tab PO DAILY Baclofen 10 mg PO TID PRN #90 tab PRN Reason: Spasms Sennosides-Docusate Sodium [Senokot-S] 1 tab PO DAILY Atorvastatin [Lipitor] 40 mg PO DAILY Discontinued Metoprolol Succinate (ER) [Toprol XL] 25 mg PO DAILY hydrALAZINE HCL [Apresoline] 50 mg PO TID Empagliflozin [Jardiance] 25 mg PO DAILY Insulin NPH Hum/Reg Insulin Hm [NovoLIN 70-30 Flexpen] 20 units SQ W/BRKFST HYDROcodone/APAP 5-325MG [[place] 5] 1 tab PO Q6HR PRN PRN Reason: Pain cloNIDine HCL 0.2 mg PO DAILY Insulin NPH Hum/Reg Insulin Hm [NovoLIN 70-30 Flexpen] 24 units SQ W/SUPPER Discharge Medication List Aspirin EC [Ecotrin Low Dose] 81 mg PO DAILY 01/29/23 [History] Multivitamins, Thera [Multivitamin (formulary)] 1 tab PO DAILY 01/29/23 [History] amLODIPine [Norvasc] 5 mg PO BID 01/29/23 [History] guaiFENesin [Mucinex] 600 mg PO BID 01/29/23 [History] metFORMIN HCL ER [Glucophage XR] 500 mg PO BID 01/29/23 [History] Baclofen 10 mg PO TID PRN #90 tab 09/23/23 [Rx] Atorvastatin [Lipitor] 40 mg PO DAILY 09/26/23 [History] Losartan Potassium 100 mg PO DAILY 09/26/23 [History] Sennosides-Docusate Sodium [Senokot-S] 1 tab PO DAILY 09/26/23 [History] Apixaban [Eliquis] 5 mg PO BID tab 09/30/23 [Rx] Metoprolol Tartrate [Lopressor] 50 mg PO TID tab 09/30/23 [Rx] Multivitamins, Thera [Multivitamin (formulary)] 1 each PO DAILY tab 09/30/23 [Rx] Nitroglycerin Sl Tabs [Nitrostat] 0.4 mg SUBLINGUAL Q5M PRN tab 09/30/23 [Rx] Pioglitazone [Actos] 30 mg PO DAILY tab 09/30/23 [Rx] Dapagliflozin Propanediol [Farxiga] 10 mg PO DAILY 30 Days #30 tab 10/02/23 [Rx] Furosemide [Lasix] 20 mg PO DAILY tab 10/02/23 [Rx] HYDROcodone/APAP 5-325MG [[place] 5-325] 1 each PO Q6HR PRN #12 tab 10/02/23 [Rx] Insulin NPH/Reg Insulin 70/30 [humuLIN 70/30 VIAL] 24 unit SQ AC-BID #3 ml 10/02/23 [Rx] cloNIDine HCL [Catapres] 0.1 mg PO HS #30 tab 10/02/23 [Rx] cloNIDine HCL [Catapres] 0.1 mg PO HS #30 tab 10/02/23 [Rx] hydrALAZINE HCL [Apresoline] 10 mg PO BID tab 10/02/23 [Rx] Follow up Appointment(s)/Referral(s): Pablito Blanco DO [Doctor of Osteopathic Medicine] - 1 Week Jesus Manuel Lang PAC [PHYSICIAN WALLPAPER INSPECTOR] - 10/06/23 10:50 am (Patient may follow- up as already scheduled on 10/06/2023 at 10:50 AM.) Silver Ayala MD [Primary Care Provider] - 1 Week Jethro Martinez MD [STAFF PHYSICIAN] - 1 Week Activity/Diet/Wound Care/Special Instructions: 1. Patient may shower without Optifoam dressing intact. 2. Patient must wear a hard cervical collar while upright and with increased activities. 3. Patient may may wear soft cervical collar for comfort support while lying down or sleeping. 4. Patient should refrain from driving until at least after their first follow- up appointment in the office. 5. Patient should avoid excessive cervical flexion, extension, and side bending; avoid overhead lifting; no lifting greater than 10 pounds 6. Take medications as prescribed 7. Patient should avoid anti-inflammatory medications over the next 6 weeks postoperatively 8. Patient is encouraged to continue using a walker to aid in ambulation 9. Do not soak in tub Discharge Disposition: HOME SELF-CARE
[2023-10-02 16:45] LABS: Glucose,Whole Blood 295 mg/dL (70-110)
== END 2023-10-02 19:04 | disposition home or self-care (01) | DRG 309 ==
LOC: SUPCPDRO 12:10 → EC 12:10 → 3SCARD 14:15
PROVIDERS: ADMIT Internal Medicine; ATTEND Internal Medicine
DX: I48.0 Paroxysmal atrial fibrillation (principal); M50.00 Cervical disc disorder with myelopathy, unspecified cervical region; M50.10 Cervical disc disorder with radiculopathy, unspecified cervical region; M48.02 Spinal stenosis, cervical region; E78.5 Hyperlipidemia, unspecified; E11.65 Type 2 diabetes mellitus with hyperglycemia; Z79.4 Long term (current) use of insulin; Z79.84 Long term (current) use of oral hypoglycemic drugs; G89.29 Other chronic pain; Z98.1 Arthrodesis status; R13.10 Dysphagia, unspecified; Z90.49 Acquired absence of other specified parts of digestive tract; Z86.010 Personal history of colon polyps; Z87.891 Personal history of nicotine dependence; F32.A Depression, unspecified; Z71.3 Dietary counseling and surveillance; R00.1 Bradycardia, unspecified; T44.7X5A Adverse effect of beta-adrenoreceptor antagonists, initial encounter; R47.02 Dysphasia; I11.9 Hypertensive heart disease without heart failure; I25.10 Atherosclerotic heart disease of native coronary artery without angina pectoris; I25.2 Old myocardial infarction; Z79.899 Other long term (current) drug therapy; Z98.61 Coronary angioplasty status
CPT/HCPCS: 36415; 71046; 80053; 80061; 83735; 84443; 84484; 85025; 85610; 85730; 93005; 93306; 94760; 96365; 96366; 99291

== ENCOUNTER → 2023-12-29 | Outpatient (CLI) | payer MEDICARE ==
[2023-12-29 22:19] LABS: NT-Pro-B-Type Natriuretic Pept 133 pg/mL (0-450)
[2023-12-29 22:22] LABS: BUN/Creat Ratio 13.75 Ratio (12.00-20.00); Blood Urea Nitrogen 16.5 mg/dL (9.0-27.0); Calcium 10.2 mg/dL (8.7-10.3); Carbon Dioxide 22.3 mmol/L (21.6-31.8); Chloride 102 mmol/L (96-109); Glucose 158 mg/dL (70-110); Potassium 4.1 mmol/L (3.5-5.5); Sodium 141 mmol/L (135-145)
--- NOTE | 2023-12-30 20:58 | XR ---
EXAMINATION TYPE: XR chest 2V DATE OF EXAM: 12/29/2023 COMPARISON: 09/26/2023 HISTORY: 78-year-old male I50.22, CHF TECHNIQUE: Frontal and lateral views FINDINGS: Heart normal size. Atherosclerotic arch calcifications. Mild hyperinflation. Moderate interstitial pr ominence is unchanged. No consolidation or pleural effusion. ACDF hardware. IMPRESSION: Possible underlying COPD. Chronic changes. No acute process seen.
== END | disposition home or self-care (01) ==
LOC: LABWHC1 14:11
PROVIDERS: ATTEND Internal Medicine
DX: I11.0 Hypertensive heart disease with heart failure (principal); I50.9 Heart failure, unspecified; E87.8 Other disorders of electrolyte and fluid balance, not elsewhere classified; R60.0 Localized edema
CPT/HCPCS: 36415; 71046; 80048; 83880

== ENCOUNTER → 2024-01-06 | Outpatient (CLI) | payer MEDICARE ==
--- NOTE | 2024-01-06 14:48 | US ---
EXAMINATION TYPE: US venous doppler duplex LE DATE OF EXAM: 01/06/2024 2:29 PM COMPARISON: 2022 [facility] CLINICAL INDICATION: Male, 78 years old with history of R60.0 LOCALIZED EDEMA; SIDE PERFORMED: Bilateral TECHNIQUE: The lower extremity deep venous system is examined utilizing real time linear array sonog [place] with graded compression, doppler sonography and color-flow sonography. VESSELS IMAGED: Common Femoral Vein Deep Femoral Vein Greater Saphenous Vein * Femoral Vein Popliteal Vein Small Saphenous Vein * Proximal Calf Veins (* superficial vessels) Right Leg: Negative for DVT Left Leg: Negative for DVT IMPRESSION: Grayscale, color doppler, spectral doppler imaging performed of the deep veins of the lo wer extremities. There is normal flow, compressibility, vascular waveforms.
== END | disposition home or self-care (01) ==
LOC: RADUSWWP 13:49
PROVIDERS: ATTEND Internal Medicine
DX: R60.0 Localized edema (principal)
CPT/HCPCS: 93970

== ENCOUNTER → 2024-01-07 | Outpatient (CLI) | payer MEDICARE ==
--- NOTE | 2024-01-07 11:50 | FL ---
COMPARISON: NONE DATE OF EXAM: 01/07/2024 HISTORY: Dysphasia A number of thin and thick substances were ingested under the care of the department of speech pathol ogy. There is no evidence of aspiration or penetration. There is no evidence of obstruction. Some residual within the piriform sinus and vallecula. DAP are not provided. 1 minute 11 seconds of fluoroscopy. No images submitted. IMPRESSION: 1. No evidence of aspiration or penetration.
== END | disposition home or self-care (01) ==
LOC: RADFLMAIN 11:15
PROVIDERS: ATTEND Otolaryngology
DX: R13.13 Dysphagia, pharyngeal phase (principal)
CPT/HCPCS: 74230

== ENCOUNTER → 2024-01-22 | Outpatient (CLI) | payer MEDICARE ==
[2024-01-22 13:03] LABS: Creatinine,Urine Random 51.9 mg/dL; Protein/Creatinine Ratio,Urine 0.848
[2024-01-22 15:14] LABS: Basophils # (A) 0.07 X 10*3/uL (0.00-0.10); Basophils % (A) 0.9 %; Eosinophils # (A) 0.19 X 10*3/uL (0.04-0.35); Eosinophils % (A) 2.5 %; HCT 42.8 % (39.6-50.0); HGB 14.5 g/dL (13.0-17.0); Lymphocytes # (A) 2.54 X 10*3/uL (0.90-5.00); Lymphocytes % (A) 33.6 %; MCH 29.4 pg (27.0-32.0); MCHC 33.9 g/dL (32.0-37.0); MCV 86.6 FL (80.0-97.0); Mean Platelet Volume 10.7 FL (9.5-12.2); Monocytes # (A) 0.73 X 10*3/uL (0.20-1.00); Monocytes % (A) 9.7 %; NRBC Per 100 WBC 0 X 10*3/uL (0.00-0.01); Neutrophils # (A) 3.97 X 10*3/uL (1.80-7.70); Neutrophils % (A) 52.6 %; Platelet Count 275 X 10*3/uL (140-440); RBC 4.94 X 10*6/uL (4.40-5.60); RDW 12.7 % (11.5-14.5); WBC 7.55 X 10*3/uL (4.50-10.00)
[2024-01-22 15:28] LABS: ALT 27 U/L (10-49); AST 21 U/L (14-35); BUN/Creat Ratio 17.31 Ratio (12.00-20.00); Blood Urea Nitrogen 22.5 mg/dL (9.0-27.0); Calcium 9.8 mg/dL (8.7-10.3); Carbon Dioxide 29.6 mmol/L (21.6-31.8); Chloride 98 mmol/L (96-109); Glucose 291 mg/dL (70-110); Sodium 139 mmol/L (135-145)
[2024-01-22 18:26] LABS: Urine Creatinine 53.6 mg/dL (39.0-259.0)
== END | disposition home or self-care (01) ==
LOC: LABWHC1 10:35
PROVIDERS: ATTEND Internal Medicine
DX: L53.9 Erythematous condition, unspecified (principal); R60.0 Localized edema; R80.9 Proteinuria, unspecified
CPT/HCPCS: 36415; 80048; 82043; 82570; 84156; 84450; 84460; 85025

== ENCOUNTER → 2024-06-03 | Outpatient (CLI) | payer MEDICARE ==
[2024-06-03 10:48] LABS: Protein/Creatinine Ratio,Urine 0.58
[2024-06-03 11:08] LABS: Basophils # (A) 0.06 X 10*3/uL (0.00-0.10); Basophils % (A) 0.7 %; Eosinophils # (A) 0.19 X 10*3/uL (0.04-0.35); Eosinophils % (A) 2.1 %; HGB 14.5 g/dL (13.0-17.0); Lymphocytes # (A) 2.67 X 10*3/uL (0.90-5.00); Lymphocytes % (A) 28.9 %; MCH 29.2 pg (27.0-32.0); MCHC 33.7 g/dL (32.0-37.0); MCV 86.7 FL (80.0-97.0); Mean Platelet Volume 10.6 FL (9.5-12.2); Monocytes # (A) 0.89 X 10*3/uL (0.20-1.00); Monocytes % (A) 9.6 %; NRBC Per 100 WBC 0 X 10*3/uL (0.00-0.01); Neutrophils # (A) 5.36 X 10*3/uL (1.80-7.70); Platelet Count 293 X 10*3/uL (140-440); RBC 4.96 X 10*6/uL (4.40-5.60); RDW 12.7 % (11.5-14.5); WBC 9.23 X 10*3/uL (4.50-10.00)
[2024-06-03 11:27] LABS: % Iron Saturation 10.23 (15.00-50.00); ALT 28 U/L (10-49); AST 21 U/L (14-35); Albumin 4.5 g/dL (3.8-4.9); Albumin/Globulin Ratio 2.37 Ratio (1.60-3.17); Alkaline Phosphatase 127 U/L (41-126); BUN/Creat Ratio 14.08 Ratio (12.00-20.00); Blood Urea Nitrogen 18.3 mg/dL (9.0-27.0); C Reactive Protein <0.30 mg/dL (0.00-0.80); Calcium 9.7 mg/dL (8.7-10.3); Carbon Dioxide 25.5 mmol/L (21.6-31.8); Chloride 101 mmol/L (96-109); Chol/HDL Ratio 2.41 Ratio; Creatine Kinase 113 U/L (35-257); Ferritin 21.6 ng/mL (22.0-322.0); Globulin 1.9 g/dL (1.6-3.3); Glucose 177 mg/dL (70-110); Iron 45 UG/DL (65-175); LDL Cholesterol,Calculated 4.4 mg/dL (0.0-131.0); Magnesium 2.1 mg/dL (1.5-2.4); Phosphorus 4.5 mg/dL (2.4-5.1); Potassium 4.7 mmol/L (3.5-5.5); Prostate Specific Antigen 2.69 ng/mL (0.000-6.500); Sodium 141 mmol/L (135-145); Total Bilirubin 0.4 mg/dL (0.3-1.2); Total Iron Binding Capacity 440 UG/DL (228-460); Total Protein 6.4 g/dL (6.2-8.2); Uric Acid 4.9 mg/dL (3.7-8.7)
[2024-06-03 11:48] LABS: Erythrocyte Sedimentation Rate 10 mm/Hr (0-20)
[2024-06-03 15:42] LABS: Appearance,Urine Clear (Clear); Bilirubin,Urine Negative (Negative); Blood,Urine Negative (Negative); Color,Urine Yellow (Yellow); Ketones,Urine Negative (Negative); Nitrite,Urine Negative (Negative); Specific Gravity,Urine 1.016 (1.001-1.030); Urobilinogen,Urine 0.2 E.U./DL
[2024-06-03 21:15] LABS: Urine Creatinine 50.9 mg/dL (39.0-259.0)
== END | disposition home or self-care (01) ==
LOC: LABWHC1 08:15
PROVIDERS: ATTEND Internal Medicine
DX: Z00.00 Encounter for general adult medical examination without abnormal findings
CPT/HCPCS: 36415; 80053; 80061; 81003; 82043; 82306; 82550; 82570; 82728; 83036; 83540; 83550; 83735; 83970; 84100; 84153; 84156; 84443; 84550; 85025; 85652; 86140

== ENCOUNTER → 2024-09-15 | Outpatient (CLI) | payer MEDICARE ==
[2024-09-15 15:04] LABS: Basophils # (A) 0.08 X 10*3/uL (0.00-0.10); Basophils % (A) 0.8 %; Eosinophils % (A) 0.9 %; HCT 45.9 % (39.6-50.0); HGB 15.2 g/dL (13.0-17.0); Lymphocytes # (A) 2.28 X 10*3/uL (0.90-5.00); Lymphocytes % (A) 21.5 %; MCHC 33.1 g/dL (32.0-37.0); MCV 87.4 FL (80.0-97.0); Mean Platelet Volume 11.1 FL (9.5-12.2); Monocytes # (A) 0.93 X 10*3/uL (0.20-1.00); Monocytes % (A) 8.8 %; NRBC Per 100 WBC 0 X 10*3/uL (0.00-0.01); Neutrophils # (A) 7.15 X 10*3/uL (1.80-7.70); Neutrophils % (A) 67.5 %; Platelet Count 287 X 10*3/uL (140-440); RBC 5.25 X 10*6/uL (4.40-5.60); RDW 14.6 % (11.5-14.5); WBC 10.59 X 10*3/uL (4.50-10.00)
[2024-09-15 15:26] LABS: % Iron Saturation 10.95 (15.00-50.00); Ferritin 36.8 ng/mL (22.0-322.0)
== END | disposition home or self-care (01) ==
LOC: LABWHC1 07:56
PROVIDERS: ATTEND Internal Medicine
DX: D64.9 Anemia, unspecified (principal); E78.5 Hyperlipidemia, unspecified
CPT/HCPCS: 36415; 82728; 83540; 83550; 83721; 85025

== ENCOUNTER → 2025-01-11 | Outpatient (CLI) | payer MEDICARE ==
[2025-01-11 09:24] LABS: Creatinine,Urine Random 60.9 mg/dL; Protein/Creatinine Ratio,Urine 0.378
[2025-01-11 11:00] LABS: % Iron Saturation 21.76 (15.00-50.00); ALT 29 U/L (10-49); AST 23 U/L (14-35); Albumin 4.2 g/dL (3.8-4.9); Alkaline Phosphatase 112 U/L (41-126); BUN/Creat Ratio 13.58 Ratio (12.00-20.00); Blood Urea Nitrogen 16.3 mg/dL (9.0-27.0); Calcium 9.6 mg/dL (8.7-10.3); Carbon Dioxide 24.5 mmol/L (21.6-31.8); Chloride 104 mmol/L (96-109); Chol/HDL Ratio 2.62 Ratio; Ferritin 41.5 ng/mL (22.0-322.0); Globulin 2.1 g/dL (1.6-3.3); Glucose 141 mg/dL (70-110); Iron 79 UG/DL (65-175); Potassium 4.2 mmol/L (3.5-5.5); Sodium 142 mmol/L (135-145); Total Bilirubin 0.3 mg/dL (0.3-1.2); Total Iron Binding Capacity 363 UG/DL (228-460); Total Protein 6.3 g/dL (6.2-8.2)
[2025-01-11 18:36] LABS: Urine Creatinine 61.8 mg/dL (39.0-259.0)
== END | disposition home or self-care (01) ==
LOC: LABWHC1 07:45
PROVIDERS: ATTEND Internal Medicine
DX: E10.65 Type 1 diabetes mellitus with hyperglycemia (principal); R80.9 Proteinuria, unspecified
CPT/HCPCS: 36415; 80053; 80061; 82043; 82570; 82728; 83036; 83540; 83550; 84156